=== PATIENT | female | born 1930 | race Caucasian/White ===

== ENCOUNTER 2016-10-10 13:56 | Inpatient (IN) | payer MEDICARE ==
[2016-10-10] MEDS ORDERED: SODIUM CHLORIDE 0.9% 1,000 ML IV STA (14:28)
--- NOTE | 2016-10-10 14:31 | ED ---
General Adult HPI - General Chief complaint: Fall Stated complaint: Fall Time Seen by Provider: 10/10/16 14:24 Source: patient, EMS, RN notes reviewed Mode of arrival: EMS Limitations: no limitations - History of Present Illness Initial comments: Patient is a pleasant 86-year-old female presenting to the emergency department for weakness. Patient fell off the toilet. Patient was unable to get up on her own. Patient states she feels fine now has no complaints. Patient denies any syncope. No head injury or loss of consciousness. No injury at all. No cough or dyspnea. No fevers. No abdominal pain. - Related Data Home Medications Medication Instructions Recorded Confirmed Hydrochlorothiazide [Hydrodiuril] 25 mg PO DAILY 10/10/16 10/10/16 Levothyroxine Sodium [Synthroid] 25 mcg PO DAILY 10/10/16 10/10/16 Metoprolol Tartrate [Lopressor] 50 mg PO BID 10/10/16 10/10/16 Primidone [Mysoline] 100 mg PO DAILY PRN 10/10/16 10/10/16 risperiDONE [RisperDAL] 0.5 mg PO HS 10/10/16 10/10/16 Allergies Allergy/AdvReac Type Severity Reaction Status Date / Time No Known Allergies Allergy Verified 10/10/16 15:19 Review of Systems ROS Statement: Those systems with pertinent positive or pertinent negative responses have been documented in the HPI. ROS Other: All systems not noted in ROS Statement are negative. Constitutional: Denies: fever Eyes: Denies: eye pain ENT: Denies: ear pain Respiratory: Denies: cough Cardiovascular: Denies: chest pain Endocrine: Denies: fatigue Gastrointestinal: Denies: abdominal pain Genitourinary: Denies: dysuria Musculoskeletal: Denies: back pain Skin: Denies: rash Neurological: Reports: weakness Past Medical History Past Medical History: Unable to Obtain History of Any Multi-Drug Resistant Organisms: None Reported Past Surgical History: Unable to Obtain Past Psychological History: No Psychological Hx Reported Smoking Status: Current every day smoker Past Alcohol Use History: None Reported Past Drug Use History: None Reported General Exam Limitations: no limitations General appearance: alert, in no apparent distress Head exam: Present: atraumatic, normocephalic Eye exam: Present: normal appearance, PERRL, EOMI. Absent: nystagmus ENT exam: Present: normal oropharynx Neck exam: Present: normal inspection Respiratory exam: Present: normal lung sounds bilaterally Cardiovascular Exam: Present: regular rate, normal rhythm GI/Abdominal exam: Present: soft. Absent: tenderness Extremities exam: Present: normal inspection, full ROM. Absent: tenderness Neurological exam: Present: alert, CN II-XII intact. Absent: motor sensory deficit Expanded Cranial nerves: EOM's Intact: Normal, Facial Sensation: Normal Sensory exam: Upper Extremity Light Touch: Normal, Lower Extremity Light Touch: Normal Motor strength exam: RUE: 5, LUE: 5, RLE: 5, LLE: 5 Eye Response: (4) open spontaneously Motor Response: (6) obeys commands Verbal Response: (5) oriented Psychiatric exam: Present: normal affect, normal mood Skin exam: Absent: rash Course Vital Signs 10/10/16 10/10/16 14:04 16:21 Temperature 98.2 F Pulse Rate 89 84 Respiratory 18 18 Rate Blood Pressure 133/60 125/63 O2 Sat by Pulse 99 98 Oximetry EKG Findings - EKG Comments: EKG Findings:: Sinus rhythm at 82 with PVCs present. W[place] 146. QRS 140. QTc 410. QTc 479. Left axis. Right bundle branch block. Left anterior fascicular block. Minimal voltage for LVH. No acute ST change. Medical Decision Making - Medical Decision Making Patient reevaluated and resting comfortably in bed. Patient and family updated on results and plan. Case was discussed in detail with Dr. Garvey, who will admit for Dr. evans. IV fluids and potassium replacement will be provided. - Lab Data Result diagrams: 10/10/16 14:45 10/10/16 14:45 Lab Results 10/10/16 10/10/16 10/10/16 Range/Units 14:45 14:45 14:45 WBC 4.7 (3.8-10.6) k/uL RBC 4.40 (3.80-5.40) m/uL Hgb 12.6 (11.4-16.0) gm/dL Hct 36.5 (34.0-46.0) % MCV 83.0 (80.0-100.0) fL MCH 28.7 (25.0-35.0) pg MCHC 34.6 (31.0-37.0) g/dL RDW 14.1 (11.5-15.5) % Plt Count 259 (150-450) k/uL Neutrophils % 79 % Lymphocytes % 14 % Monocytes % 5 % Eosinophils % 0 % Basophils % 0 % Neutrophils # 3.7 (1.3-7.7) k/uL Lymphocytes # 0.6 L (1.0-4.8) k/uL Monocytes # 0.2 (0-1.0) k/uL Eosinophils # 0.0 (0-0.7) k/uL Basophils # 0.0 (0-0.2) k/uL PT (9.0-12.0) sec INR (<1.1) APTT (22.0-30.0) sec Sodium (137-145) mmol/L Potassium (3.5-5.1) mmol/L Chloride (98-107) mmol/L Carbon Dioxide (22-30) mmol/L Anion Gap mmol/L BUN (7-17) mg/dL Creatinine (0.52-1.04) mg/dL Est GFR (MDRD) Af Amer (>60 ml/min/1.73 sqM) Est GFR (MDRD) Non-Af (>60 ml/min/1.73 sqM) Glucose (74-99) mg/dL Calcium (8.4-10.2) mg/dL Phosphorus (2.5-4.5) mg/dL Magnesium (1.6-2.3) mg/dL Total Bilirubin (0.2-1.3) mg/dL AST (14-36) U/L ALT (9-52) U/L Alkaline Phosphatase (38-126) U/L Total Creatine Kinase 384 H (30-135) U/L CK-MB (CK-2) 1.5 (0.0-2.4) ng/mL CK-MB (CK-2) Rel Index 0.4 Troponin I 0.013 (0.000-0.034) ng/mL Total Protein (6.3-8.2) g/dL Albumin (3.5-5.0) g/dL TSH (0.465-4.680) mIU/L Free T4 (0.78-2.19) ng/dL Free T3 pg/mL (2.8-5.3) pg/ml Urine Color Yellow Urine Appearance Clear (Clear) Urine pH 6.5 (5.0-8.0) Ur Specific [employer] 1.011 (1.001-1.035) Urine Protein Trace H (Negative) Urine Glucose (UA) Negative (Negative) Urine Ketones Negative (Negative) Urine Blood Trace H (Negative) Urine Nitrite Negative (Negative) Urine Bilirubin Negative (Negative) Urine Urobilinogen <2.0 (<2.0) mg/dL Ur Leukocyte Esterase Negative (Negative) Urine RBC 6 H (0-5) /hpf Urine WBC 1 (0-5) /hpf Ur Squamous Epith Cells <1 (0-4) /hpf Hyaline Casts 5 H (0-2) /lpf Urine Mucus Rare H (None) /hpf 10/10/16 10/10/16 Range/Units 14:45 14:45 WBC (3.8-10.6) k/uL RBC (3.80-5.40) m/uL Hgb (11.4-16.0) gm/dL Hct (34.0-46.0) % MCV (80.0-100.0) fL MCH (25.0-35.0) pg MCHC (31.0-37.0) g/dL RDW (11.5-15.5) % Plt Count (150-450) k/uL Neutrophils % % Lymphocytes % % Monocytes % % Eosinophils % % Basophils % % Neutrophils # (1.3-7.7) k/uL Lymphocytes # (1.0-4.8) k/uL Monocytes # (0-1.0) k/uL Eosinophils # (0-0.7) k/uL Basophils # (0-0.2) k/uL PT 10.7 (9.0-12.0) sec INR 1.1 (<1.1) APTT 22.5 (22.0-30.0) sec Sodium 128 L (137-145) mmol/L Potassium 2.9 L* (3.5-5.1) mmol/L Chloride 88 L (98-107) mmol/L Carbon Dioxide 29 (22-30) mmol/L Anion Gap 11 mmol/L BUN 13 (7-17) mg/dL Creatinine 0.80 (0.52-1.04) mg/dL Est GFR (MDRD) Af Amer >60 (>60 ml/min/1.73 sqM) Est GFR (MDRD) Non-Af >60 (>60 ml/min/1.73 sqM) Glucose 94 (74-99) mg/dL Calcium 8.8 (8.4-10.2) mg/dL Phosphorus 3.1 (2.5-4.5) mg/dL Magnesium 1.7 (1.6-2.3) mg/dL Total Bilirubin 0.5 (0.2-1.3) mg/dL AST 35 (14-36) U/L ALT 23 (9-52) U/L Alkaline Phosphatase 53 (38-126) U/L Total Creatine Kinase (30-135) U/L CK-MB (CK-2) (0.0-2.4) ng/mL CK-MB (CK-2) Rel Index Troponin I (0.000-0.034) ng/mL Total Protein 6.6 (6.3-8.2) g/dL Albumin 3.6 (3.5-5.0) g/dL TSH 1.480 (0.465-4.680) mIU/L Free T4 1.26 (0.78-2.19) ng/dL Free T3 pg/mL 2.4 L (2.8-5.3) pg/ml Urine Color Urine Appearance (Clear) Urine pH (5.0-8.0) Ur Specific [employer] [place] (1.001-1.035) Urine Protein (Negative) Urine Glucose (UA) (Negative) Urine Ketones (Negative) Urine Blood (Negative) Urine Nitrite (Negative) Urine Bilirubin (Negative) Urine Urobilinogen (<2.0) mg/dL Ur Leukocyte Esterase (Negative) Urine RBC (0-5) /hpf Urine WBC (0-5) /hpf Ur Squamous Epith Cells (0-4) /hpf Hyaline Casts (0-2) /lpf Urine Mucus (None) /hpf - Radiology Data Radiology results: report reviewed (Computed tomography scan of the brain shows no acute process. Atrophy is present.), image reviewed (Chest x-ray shows no acute process.) Disposition Clinical Impression: Fall, Hyponatremia, Hypokalemia, Weakness Disposition: ADMITTED IP TO THIS HOSP
[2016-10-10 15:11] LABS: Appearance,Urine Clear (Clear); Bilirubin,Urine Negative (Negative); Glucose,Urine (UA) Negative (Negative); Ketones,Urine Negative (Negative); Leukocyte Esterase,Urine Negative (Negative); Mucus,Urine Rare /hpf; Nitrite,Urine Negative (Negative); PH, Urine 6.5 (5.0-8.0); Particle Count 2201; Protein,Urine Trace (Negative); RBC,Urine 6 /hpf (0-5); Specific Gravity,Urine 1.011 (1.001-1.035); Squamous Epithelial Cell,Urine <1 /hpf (0-4); UA Billing (MACRO vs. MICRO) MICRO; Urobilinogen,Urine <2.0 mg/dL (<2.0); WBC,Urine 1 /hpf (0-5)
[2016-10-10 15:15] LABS: INR 1.1 (<1.1); Partial Thromboplastin Time 22.5 sec (22.0-30.0); Prothrombin Time 10.7 sec (9.0-12.0)
[2016-10-10 15:17] LABS: ALT 23 U/L (9-52); AST 35 U/L (14-36); Alkaline Phosphatase 53 U/L (38-126); Anion Gap 11 mmol/L; Blood Urea Nitrogen 13 mg/dL (7-17); Calcium 8.8 mg/dL (8.4-10.2); Carbon Dioxide 29 mmol/L (22-30); Chloride 88 mmol/L (98-107); Glucose 94 mg/dL (74-99); Magnesium 1.7 mg/dL (1.6-2.3); Non-African American GFR(MDRD) >60 (>60 ml/min/1.73 sqM); Phosphorous 3.1 mg/dL (2.5-4.5); Sodium 128 mmol/L (137-145); Total Bilirubin 0.5 mg/dL (0.2-1.3); Total Protein 6.6 g/dL (6.3-8.2)
[2016-10-10 15:23] LABS: Potassium 2.9 mmol/L (3.5-5.1)
[2016-10-10 15:35] LABS: Basophils % (A) 0 %; CH 28.6; CHCM 34.6; Eosinophils % (A) 0 %; HCT 36.5 % (34.0-46.0); HDW 2.61; HGB 12.6 gm/dL (11.4-16.0); Luc # (Auto) 0.09; Luc % (Auto) 2; Lymphocytes # (A) 0.6 k/uL (1.0-4.8); Lymphocytes % (A) 14 %; MCH 28.7 pg (25.0-35.0); MCHC 34.6 g/dL (31.0-37.0); Monocytes # (A) 0.2 k/uL (0-1.0); Monocytes % (A) 5 %; Neutrophils # (A) 3.7 k/uL (1.3-7.7); Neutrophils % (A) 79 %; RDW 14.1 % (11.5-15.5); WBC 4.7 k/uL (3.8-10.6); WBC (Perox) 4.58
[2016-10-10 15:39] LABS: Creatine Kinase MB 1.5 ng/mL (0.0-2.4); Troponin I 0.013 ng/mL (0.000-0.034)
--- NOTE | 2016-10-10 15:43 | XR ---
EXAMINATION TYPE: XR chest 2V DATE OF EXAM: 10/10/2016 3:37 PM COMPARISON: 10/10/2016 HISTORY: Shortness of breath TECHNIQUE: Frontal and lateral views of the chest are obtained. FINDINGS: Scattered senescent parenchymal changes noted. Hyperinflation compatible with COPD. No evidence for infiltrate. No evidence for atelectasis. Fluid or thickening within the right minor f issure. Heart size is stable. Mediastinal structures are stable and grossly unremarkable. No evidence for hilar prominence. Degenerative changes dorsal spine. IMPRESSION: 1. No evidence for acute pulmonary disease.
--- NOTE | 2016-10-10 15:49 | CT ---
EXAMINATION TYPE: CT brain wo con DATE OF EXAM: 10/10/2016 3:37 PM COMPARISON: NONE INDICATION: ams, unable to obtain hx DLP: 943.8 mGycm, Automated exposure control for dose reduction was used. CONTRAST: None CT of the brain is performed utilizing 3 mm thick sections through the posterior fossa and 3 mm thick sections through the remaining calvarium. Study is performed within 24 hours of arrival to the hosp [facility]. No abnormal hyperdensity is present to suggest an acute intracranial hemorrhage. No mass lesion is evident. No acute infarcts are evident. Periventricular white matter hypodensity is present, likely on the bas is of chronic white matter ischemic changes. Ventricles and sulci are mildly prominent for the patient age. Paranasal sinuses and mastoid air cells within the [id number] are clear. IMPRESSIONS: 1. Atrophy with periventricular white matter ischemic changes.
[2016-10-10] MEDS ORDERED: POTASSIUM BICARB-CITRIC ACID 25 MEQ TABLET.EFF PO STA (16:37)
[2016-10-10] MEDS ORDERED: NALOXONE 0.4 MG/ML 1 ML VIAL IV PRN (16:47)
[2016-10-10] MEDS ORDERED: ACETAMINOPHEN TAB 325 MG TAB PO PRN (16:47)
[2016-10-10] MEDS: POTASSIUM CHLORIDE 10 MEQ, LIDOCAINE 2% INJ 10 MG in SODIUM CHLORIDE 0.9% 100 ML IVPB SCH ×2 (16:58→19:47)
[2016-10-10] MEDS: POTASSIUM CHLORIDE ER 20 MEQ TAB.ER PO SCH (20:11)
[2016-10-10] MEDS: 0.9% NACL WITH KCL 20 MEQ/L 1,000 ML IV SCH (21:04)
[2016-10-11] MEDS: 0.9% NACL WITH KCL 20 MEQ/L 1,000 ML IV SCH ×2 (08:43→21:28)
[2016-10-11] MEDS: POTASSIUM CHLORIDE ER 20 MEQ TAB.ER PO SCH ×2 (08:43→20:56)
[2016-10-11 09:15] LABS: Anion Gap 7 mmol/L; Blood Urea Nitrogen 10 mg/dL (7-17); Carbon Dioxide 27 mmol/L (22-30); Chloride 97 mmol/L (98-107); Glucose 104 mg/dL (74-99); Non-African American GFR(MDRD) >60 (>60 ml/min/1.73 sqM); Potassium 3.6 mmol/L (3.5-5.1); Sodium 131 mmol/L (137-145)
[2016-10-11] MEDS ORDERED: PRIMIDONE 50 MG TAB PO PRN (11:10)
[2016-10-11] MEDS ORDERED: ONDANSETRON 4 MG/2 ML VIAL IVP PRN (11:12)
[2016-10-11] MEDS ORDERED: Potassium Replacement Protocol 1 EACH MISC MISCELLANE PRN (11:13)
[2016-10-11] MEDS ORDERED: Magnesium Replacement Protocol 1 EACH MISC MISCELLANE PRN (11:13)
--- NOTE | 2016-10-11 11:20 | P.HPIM ---
History of Present Illness H&P Date: 10/11/16 Chief Complaint: Fall This is a 86-year-old female with past medical history noted below significant for underlying dementia who presented to the emergency room after she had a fall at home. Patient is demented and is unable to provide any significant medical history. Most of the medical history was obtained by her daughter at the bedside. Apparently patient is fairly independent and is usually able to walk around and take care of her activities of daily living. She lives with her son at home. Her daughter told me that her son left the house and came back after 30 minutes and found his mother in the bathroom with the door closed. He did not want to bother her initially back after 10 minutes after she did not go out he started knocking on the door and then opened the door to find his mother on the ground. She was alert and awake. Apparently she slipped off the toilet and landed on her buttock. Patient herself denies any head trauma. She does not have any specific pain reported in her lower back or hip. His evaluated in the emergency room and computed tomography scan of the brain showed no acute intracranial findings. Patient was felt to be dehydrated with evidence of hyponatremia and hypokalemia. She was admitted to the hospital for further evaluation. She is alert and awake today. She is oriented 2. She does not have any specific concerns. Review of Systems Review of system: 14 points review of systems were obtained and were negative except to what were mentioned in the HPI. 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 pt is usually independant. no outside services, no medical equipment. Smoking Status: Current every day smoker Past Alcohol Use History: None Reported Additional Past Alcohol Use History / Comment(s): pt could'nt remember how old she was when she started smoking.currently smokes 13 cig per day. Past Drug Use History: None Reported - Past Family History Mother Family Medical History: No Reported History Additional Family Medical History / Comment(s): of old age Father Family Medical History: Cancer Additional Family Medical History / Comment(s): smoker- from throat cancer Medications and Allergies Home Medications Medication Instructions Recorded Confirmed Type Hydrochlorothiazide [Hydrodiuril] 25 mg PO DAILY 10/10/16 10/10/16 History Levothyroxine Sodium [Synthroid] 25 mcg PO DAILY 10/10/16 10/10/16 History Metoprolol Tartrate [Lopressor] 50 mg PO BID 10/10/16 10/10/16 History Primidone [Mysoline] 100 mg PO DAILY PRN 10/10/16 10/10/16 History risperiDONE [RisperDAL] 0.5 mg PO HS 10/10/16 10/10/16 History Allergies Allergy/AdvReac Type Severity Reaction Status Date / Time No Known Allergies Allergy Verified 10/10/16 15:19 Physical Exam Vitals: Vital Signs Temp Pulse Pulse Resp BP BP Pulse Ox 10/11/16 07:00 97.9 F 84 16 135/62 94 L 10/10/16 23:45 99.4 F 10/10/16 22:32 101.4 F H 85 18 131/73 97 10/10/16 17:58 97.0 F L 68 18 155/67 98 10/10/16 16:51 80 18 115/58 98 Intake and Output 10/10/16 10/11/16 10/11/16 22:59 06:59 14:59 Other: Voiding Method Bedside Commode Bedside Commode Diaper Diaper Incontinent Incontinent # Voids 2 General: The patient is awake and alert, in no distress Eye: there is normal conjunctiva bilaterally. Neck: The neck is supple, there is no JVD. Cardiovascular: Normal S1-S2, no S3-S4, no murmurs. Respiratory: Lungs clear to auscultation bilaterally Gastrointestinal: Abdomen is soft, nontender Musculoskeletal: There is no pedal edema. Neurological:. Speech is normal. Skin: Skin is warm and dry Results CBC & Chem 7: 10/10/16 14:45 10/11/16 08:36 Labs: Abnormal Lab Results - Last 24 Hours (Table) 10/11/16 Range/Units 08:36 Sodium 131 L (137-145) mmol/L Chloride 97 L (98-107) mmol/L Glucose 104 H (74-99) mg/dL Calcium 8.0 L (8.4-10.2) mg/dL Thrombosis Risk Factor Assmnt - Choose All That Apply Any of the Below Risk Factors Present?: No Other Risk Factors: No Each Risk Factor Represents 3 Points: Age 75 years or older Other congenital or acquired thrombophilia - If yes, enter type in comment: No Thrombosis Risk Factor Assessment Total Risk Factor Score: 3 Thrombosis Risk Factor Assessment Level: Very Low Risk Assessment and Plan Plan: 1. Fall: Exact etiology unclear. Possibly mechanical. There is evidence of dehydration on presentation. I would check orthostatic blood pressure today. Continue IV fluid hydration. Computed tomography scan of the brain showed no acute findings. 2. Hypovolemic hyponatremia: Improving with IV fluid hydration. Continue 0.9 normal saline at 75 mL per hour 3. Hypokalemia: May be attributed to diuretics use. I would discontinue hydrochlorothiazide. Replace by protocol. 4. Excessive caffeine use: Counseled extensively. Her daughter reported the patient drinks up to 4 pots of coffee per day. 5. Essential tremor 6. DVT and GI prophylaxis 7. Physical debility, consult physical and occupational therapy Today, I reviewed her medication list and lab work results. Discontinue hydrochlorothiazide. Resume home medication otherwise. Check orthostatic blood pressure. Replace electrolytes per protocol. Repeat lab work in the morning.
[2016-10-11] MEDS: METOPROLOL TARTRATE 50 MG TAB PO SCH ×2 (14:08→20:58)
[2016-10-11] MEDS: LEVOTHYROXINE 25 MCG TAB PO SCH (14:08)
[2016-10-11 14:51] VITALS: BMI 22.4
[2016-10-11] MEDS: HEPARIN SODIUM,PORCINE 5,000 UNIT/ML 1 ML VIAL SQ SCH (20:58)
[2016-10-11] MEDS ORDERED: risperiDONE 0.5 MG TAB PO SCH (21:00)
[2016-10-12] MEDS: LEVOTHYROXINE 25 MCG TAB PO SCH (05:24)
[2016-10-12 07:25] VITALS: RESP 16
[2016-10-12 08:33] LABS: Basophils % (A) 0 %; CHCM 32.8; Eosinophils % (A) 0 %; HCT 32.6 % (34.0-46.0); HDW 2.54; HGB 10.7 gm/dL (11.4-16.0); Luc # (Auto) 0.06; Luc % (Auto) 1; Lymphocytes # (A) 1.1 k/uL (1.0-4.8); Lymphocytes % (A) 24 %; MCH 28.3 pg (25.0-35.0); MCHC 32.9 g/dL (31.0-37.0); MCV 86.1 fL (80.0-100.0); Mean Platelet Volume 6.5; Monocytes # (A) 0.2 k/uL (0-1.0); Monocytes % (A) 4 %; Neutrophils # (A) 3.1 k/uL (1.3-7.7); Neutrophils % (A) 71 %; RBC 3.79 m/uL (3.80-5.40); RDW 14.7 % (11.5-15.5); WBC 4.3 k/uL (3.8-10.6)
[2016-10-12 08:37] LABS: Anion Gap 7 mmol/L; Blood Urea Nitrogen 8 mg/dL (7-17); Calcium 7.6 mg/dL (8.4-10.2); Carbon Dioxide 22 mmol/L (22-30); Chloride 102 mmol/L (98-107); Glucose 89 mg/dL (74-99); Magnesium 1.7 mg/dL (1.6-2.3); Non-African American GFR(MDRD) >60 (>60 ml/min/1.73 sqM); Potassium 3.7 mmol/L (3.5-5.1); Sodium 131 mmol/L (137-145)
[2016-10-12] MEDS: HEPARIN SODIUM,PORCINE 5,000 UNIT/ML 1 ML VIAL SQ SCH (09:26)
[2016-10-12] MEDS: METOPROLOL TARTRATE 50 MG TAB PO SCH (09:26)
[2016-10-12] MEDS: POTASSIUM CHLORIDE ER 20 MEQ TAB.ER PO SCH (09:27)
[2016-10-12] MEDS: 0.9% NACL WITH KCL 20 MEQ/L 1,000 ML IV SCH (09:27)
[2016-10-12 15:07] VITALS: BP 108/55; PULSE 63; TEMP 98.8
--- NOTE | 2016-10-12 15:38 | P.DS ---
Providers Date of admission: 10/10/16 16:47 Expected date of discharge: 10/12/16 Attending physician: Cindy Salomon Primary care physician: Marie Solares Hospital Course: 1. Fall: Exact etiology unclear. Possibly mechanical. There is evidence of dehydration on presentation. Orthostatic blood pressure checked today and negative. Patient received IV fluid hydration. Computed tomography scan of the brain showed no acute findings. 2. Hypovolemic hyponatremia: Improved with IV fluid hydration. 3. Hypokalemia: May be attributed to diuretics use. I would discontinue hydrochlorothiazide. Replaced by protocol. 4. Excessive caffeine use: Counseled extensively. Her daughter reported the patient drinks up to 4 pots of coffee per day. 5. Essential tremor 6. Physical debility, consult physical and occupational therapy. Family refused ECF for rehab Plan - Discharge Summary Discharge Medication List Levothyroxine Sodium [Synthroid] 25 mcg PO DAILY 10/10/16 [History] Metoprolol Tartrate [Lopressor] 50 mg PO BID 10/10/16 [History] Primidone [Mysoline] 100 mg PO DAILY PRN 10/10/16 [History] risperiDONE [RisperDAL] 0.5 mg PO HS 10/10/16 [History] Follow up Appointment(s)/Referral(s): Marie Solares MD [Primary Care Provider] - 1-2 days Patient Instructions/Handouts: Dehydration (DC) Discharge Disposition: HOME SELF-CARE
== END 2016-10-12 16:05 | disposition home or self-care (01) | DRG 641 ==
LOC: EC 13:56 → 4MS4W 16:47
PROVIDERS: ADMIT Internal Medicine; ATTEND Internal Medicine
DX: E86.0 Dehydration (principal); F03.90 Unspecified dementia, unspecified severity, without behavioral disturbance, psychotic disturbance, mood disturbance, and anxiety; M06.9 Rheumatoid arthritis, unspecified; E87.1 Hypo-osmolality and hyponatremia; E87.6 Hypokalemia; G25.0 Essential tremor; I10 Essential (primary) hypertension; E07.9 Disorder of thyroid, unspecified; F17.210 Nicotine dependence, cigarettes, uncomplicated; Z98.42 Cataract extraction status, left eye; Z98.41 Cataract extraction status, right eye; Z86.010 Personal history of colon polyps; W18.11XA Fall from or off toilet without subsequent striking against object, initial encounter; Y93.E8 Activity, other personal hygiene; Y92.002 Bathroom of unspecified non-institutional (private) residence as the place of occurrence of the external cause; Z79.899 Other long term (current) drug therapy
CPT/HCPCS: 36415; 70450; 71020; 80048; 80053; 81001; 82550; 82553; 83735; 84100; 84439; 84443; 84481; 84484; 85025; 85610; 85730; 87040; 87324; 93005; 96361; 96365; 99285

== ENCOUNTER 2018-03-20 10:11 | Inpatient (IN) | payer MEDICARE ==
[2018-03-20] MEDS ORDERED: SODIUM CHLORIDE 0.9% 500 ML IV ONE ×2 (10:17→12:22)
--- NOTE | 2018-03-20 10:40 | ED ---
General Adult HPI - General Stated complaint: Altered Mental Status Time Seen by Provider: 03/20/18 10:13 Source: patient, EMS, RN notes reviewed, old records reviewed - History of Present Illness Initial comments: 87-year-old female presents with altered level of consciousness. History is obtained from EMS. Family not available at the time of initial evaluation. EMS reports that over the past several days patient has had a decline in her mental status. She was found to be tachycardic and hypotensive by EMS, no reported history of fever. Patient has no pain complaints. She is alert and oriented 2. No focal weakness reported by EMS or family prior to arrival. Further history will be obtained when patient's family is available. - Related Data Home Medications Medication Instructions Recorded Confirmed Levothyroxine Sodium [Synthroid] 25 mcg PO DAILY 10/10/16 03/20/18 Primidone [Mysoline] 25 mg PO DAILY PRN 10/10/16 03/20/18 risperiDONE [RisperDAL] 0.5 mg PO HS 10/10/16 03/20/18 Hydrochlorothiazide [Hydrodiuril] 12.5 mg PO DAILY 03/20/18 03/20/18 Niacin [Niacin ER] 1,000 mg PO DAILY 03/20/18 03/20/18 Pedi Multivit No.19/Folic Acid 200 mcg PO DAILY 03/20/18 03/20/18 [Children's Multi-Vit Gummies] Allergies Allergy/AdvReac Type Severity Reaction Status Date / Time No Known Allergies Allergy Verified 03/20/18 11:32 Review of Systems ROS Statement: Those systems with pertinent positive or pertinent negative responses have been documented in the HPI. ROS Other: All systems not noted in ROS Statement are negative. 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 pt is usually independant. no outside services, no medical equipment. Smoking Status: Current every day smoker Past Alcohol Use History: None Reported Additional Past Alcohol Use History / Comment(s): pt could'nt remember how old she was when she started smoking.currently smokes 13 cig per day. Past Drug Use History: None Reported - Past Family History Mother Family Medical History: No Reported History Additional Family Medical History / Comment(s): of old age Father Family Medical History: Cancer Additional Family Medical History / Comment(s): smoker- from throat cancer General Exam General appearance: alert, in no apparent distress Head exam: Present: atraumatic, normocephalic Eye exam: Present: normal appearance, PERRL, EOMI ENT exam: Present: mucous membranes dry Neck exam: Present: normal inspection. Absent: tenderness, meningismus Respiratory exam: Present: normal lung sounds bilaterally. Absent: respiratory distress, wheezes Cardiovascular Exam: Present: tachycardia, irregular rhythm GI/Abdominal exam: Present: soft, tenderness (Mild generalized tenderness to palpation). Absent: distended, guarding, rebound Extremities exam: Present: normal inspection, normal capillary refill. Absent: pedal edema Neurological exam: Present: alert. Absent: oriented X3, motor sensory deficit Skin exam: Present: warm, dry, intact. Absent: cyanosis Course Vital Signs 03/20/18 03/20/18 03/20/18 10:17 11:03 12:28 Temperature 98.7 F Pulse Rate 112 H 119 H Pulse Rate [ 99 [employer] Building [employer] ] Respiratory 16 18 Rate Blood Pressure 146/67 134/95 O2 Sat by Pulse 92 L 91 L Oximetry EKG Findings - EKG Comments: EKG Findings:: EKG: Sinus tachycardia with PVC, right bundle branch block, left anterior fascicular block, rate of 104, RI interval 176, QRS duration 1:30, QTC 372, QTC 49, no significant change compared to prior. Medical Decision Making - Medical Decision Making 87-year-old female presented with altered mental status. Patient has significant laboratory abnormalities including leukocytosis likely secondary to combination of UTI and possible basilar pneumonia. Hemoglobin is 9.8 which is somewhat down trending from previous at 10.7, potassium is 2.7 which is replaced with both oral and IV potassium. Patient has a new elevated creatinine at 1.97 from a baseline of 0.62, urinalysis shows many bacteria and 16 white cells. Albumin is low at 2.1, troponin is elevated although patient has some renal failure, this level will be trended. CT is negative for any acute intracranial pathology, chest x-ray shows some venous congestion in basilar infiltrate. Patient is covered for both urinary tract infection and pneumonia. She will be admitted for further evaluation and treatment. - Lab Data Result diagrams: 03/20/18 10:52 03/20/18 10:52 Lab Results 03/20/18 03/20/18 03/20/18 Range/Units 10:37 10:52 10:52 WBC 19.0 H (3.8-10.6) k/uL RBC 3.96 (3.80-5.40) m/uL Hgb 9.8 L (11.4-16.0) gm/dL Hct 30.5 L (34.0-46.0) % MCV 77.0 L (80.0-100.0) fL MCH 24.8 L (25.0-35.0) pg MCHC 32.2 (31.0-37.0) g/dL RDW 14.8 (11.5-15.5) % Plt Count 528 H (150-450) k/uL Neutrophils % 96 % Lymphocytes % 2 % Monocytes % 1 % Eosinophils % 0 % Basophils % 0 % Neutrophils # 18.3 H (1.3-7.7) k/uL Lymphocytes # 0.3 L (1.0-4.8) k/uL Monocytes # 0.3 (0-1.0) k/uL Eosinophils # 0.0 (0-0.7) k/uL Basophils # 0.0 (0-0.2) k/uL Hypochromasia Slight PT (9.0-12.0) sec INR (<1.2) APTT (22.0-30.0) sec Sodium (137-145) mmol/L Potassium (3.5-5.1) mmol/L Chloride (98-107) mmol/L Carbon Dioxide (22-30) mmol/L Anion Gap mmol/L BUN (7-17) mg/dL Creatinine (0.52-1.04) mg/dL Est GFR (CKD-EPI)AfAm (>60 ml/min/1.73 sqM) Est GFR (CKD-EPI)NonAf (>60 ml/min/1.73 sqM) Glucose (74-99) mg/dL Plasma Lactic Acid Miguel A (0.7-2.0) mmol/L Calcium (8.4-10.2) mg/dL Total Bilirubin (0.2-1.3) mg/dL AST (14-36) U/L ALT (9-52) U/L Alkaline Phosphatase (38-126) U/L Total Creatine Kinase 99 (30-135) U/L CK-MB (CK-2) 0.7 (0.0-2.4) ng/mL CK-MB (CK-2) Rel Index 0.7 Troponin I 0.055 H* (0.000-0.034) ng/mL Total Protein (6.3-8.2) g/dL Albumin (3.5-5.0) g/dL Urine Color Yellow Urine Appearance Cloudy H (Clear) Urine pH 5.5 (5.0-8.0) Ur Specific Leroy 1.016 (1.001-1.035) Urine Protein 1+ H (Negative) Urine Glucose (UA) Negative (Negative) Urine Ketones Negative (Negative) Urine Blood Trace H (Negative) Urine Nitrite Negative (Negative) Urine Bilirubin Negative (Negative) Urine Urobilinogen 2.0 (<2.0) mg/dL Ur Leukocyte Esterase Small H (Negative) Urine RBC 8 H (0-5) /hpf Urine WBC 16 H (0-5) /hpf Ur Squamous Epith Cells 6 H (0-4) /hpf Amorphous Sediment Rare H (None) /hpf Urine Bacteria Many H (None) /hpf Urine Mucus Rare H (None) /hpf 03/20/18 03/20/18 03/20/18 Range/Units 10:52 10:52 10:52 WBC (3.8-10.6) k/uL RBC (3.80-5.40) m/uL Hgb (11.4-16.0) gm/dL Hct (34.0-46.0) % MCV (80.0-100.0) fL MCH (25.0-35.0) pg MCHC (31.0-37.0) g/dL RDW (11.5-15.5) % Plt Count (150-450) k/uL Neutrophils % % Lymphocytes % % Monocytes % % Eosinophils % % Basophils % % Neutrophils # (1.3-7.7) k/uL Lymphocytes # (1.0-4.8) k/uL Monocytes # (0-1.0) k/uL Eosinophils # (0-0.7) k/uL Basophils # (0-0.2) k/uL Hypochromasia PT 10.9 (9.0-12.0) sec INR 1.1 (<1.2) APTT 20.6 L (22.0-30.0) sec Sodium 146 H (137-145) mmol/L Potassium 2.7 L* (3.5-5.1) mmol/L Chloride 110 H (98-107) mmol/L Carbon Dioxide 25 (22-30) mmol/L Anion Gap 11 mmol/L BUN 74 H (7-17) mg/dL Creatinine 1.97 H (0.52-1.04) mg/dL Est GFR (CKD-EPI)AfAm 25 (>60 ml/min/1.73 sqM) Est GFR (CKD-EPI)NonAf 22 (>60 ml/min/1.73 sqM) Glucose 135 H (74-99) mg/dL Plasma Lactic Acid Miguel A 2.0 (0.7-2.0) mmol/L Calcium 8.1 L (8.4-10.2) mg/dL Total Bilirubin 0.6 (0.2-1.3) mg/dL AST 36 (14-36) U/L ALT 22 (9-52) U/L Alkaline Phosphatase 85 (38-126) U/L Total Creatine Kinase (30-135) U/L CK-MB (CK-2) (0.0-2.4) ng/mL CK-MB (CK-2) Rel Index Troponin I (0.000-0.034) ng/mL Total Protein 4.8 L (6.3-8.2) g/dL Albumin 2.1 L (3.5-5.0) g/dL Urine Color Urine Appearance (Clear) Urine pH (5.0-8.0) Ur Specific Leroy (1.001-1.035) Urine Protein (Negative) Urine Glucose (UA) (Negative) Urine Ketones (Negative) Urine Blood (Negative) Urine Nitrite (Negative) Urine Bilirubin (Negative) Urine Urobilinogen (<2.0) mg/dL Ur Leukocyte Esterase (Negative) Urine RBC (0-5) /hpf Urine WBC (0-5) /hpf Ur Squamous Epith Cells (0-4) /hpf Amorphous Sediment (None) /hpf Urine Bacteria (None) /hpf Urine Mucus (None) /hpf Critical Care Time Critical Care Time: Yes Total Critical Care Time: 35 Disposition Clinical Impression: Dehydration, Hypokalemia, UTI (urinary tract infection), Sepsis Disposition: ADMITTED IP TO THIS HOSP Condition: Stable Is patient prescribed a controlled substance at d/c from ED?: No Referrals: Marie Solares MD [Primary Care Provider] - 1-2 days Decision to Admit Reason: Admit from EC Decision Date: 03/20/18 Decision Time: 13:25
[2018-03-20 11:15] LABS: Basophils % (A) 0 %; Eosinophils % (A) 0 %; HCT 30.5 % (34.0-46.0); HGB 9.8 gm/dL (11.4-16.0); Hypochromasia Slight; Lymphocytes # (A) 0.3 k/uL (1.0-4.8); Lymphocytes % (A) 2 %; MCH 24.8 pg (25.0-35.0); MCHC 32.2 g/dL (31.0-37.0); Mean Platelet Volume 7.7; Monocytes # (A) 0.3 k/uL (0-1.0); Monocytes % (A) 1 %; Neutrophils # (A) 18.3 k/uL (1.3-7.7); Neutrophils % (A) 96 %; Platelet Count 528 k/uL (150-450); RBC 3.96 m/uL (3.80-5.40); RDW 14.8 % (11.5-15.5)
[2018-03-20 11:19] LABS: Amorphous Sediment,Urine Rare /hpf; Appearance,Urine Cloudy (Clear); Bacteria,Urine Many /hpf; Bilirubin,Urine Negative (Negative); Blood,Urine Trace (Negative); Color,Urine Yellow; Glucose,Urine (UA) Negative (Negative); Ketones,Urine Negative (Negative); Leukocyte Esterase,Urine Small (Negative); Mucus,Urine Rare /hpf; Nitrite,Urine Negative (Negative); PH, Urine 5.5 (5.0-8.0); Protein,Urine 1+ (Negative); RBC,Urine 8 /hpf (0-5); Specific Gravity,Urine 1.016 (1.001-1.035); Squamous Epithelial Cell,Urine 6 /hpf (0-4); WBC,Urine 16 /hpf (0-5)
[2018-03-20 11:27] LABS: Albumin 2.1 g/dL (3.5-5.0); Calcium 8.1 mg/dL (8.4-10.2); Total Bilirubin 0.6 mg/dL (0.2-1.3); Total Protein 4.8 g/dL (6.3-8.2)
[2018-03-20] MEDS ORDERED: cefTRIAXone 2,000 MG in SODIUM CHLORIDE 0.9% 100 ML IVPB STA (11:28)
[2018-03-20] MEDS ORDERED: SODIUM CHLORIDE 0.9% 1,000 ML IV SCH (11:30)
[2018-03-20 11:33] LABS: Potassium 2.7 mmol/L (3.5-5.1)
--- NOTE | 2018-03-20 11:52 | CT ---
EXAMINATION TYPE: CT brain wo con DATE OF EXAM: 03/20/2018 COMPARISON: 10/10/2016 HISTORY: Patient poor historian CT DLP: [address] of the brain was performed. The ventricles, basal cisterns and sulci overlying the cerebral convexities demonstrate mild enlargem ent. There is no evidence for intracranial hemorrhage or sulcal effacement. There is decreased attenuation about the periventricular white matter and deep white matter of both c erebral hemispheres, compatible with chronic small vessel ischemia. Differential diagnosis does inclu de demyelination. No mass effects are seen.No midline shift. Osseous calvarium is intact. If symptoms persist consider MRI. IMPRESSION: 1. Age related atrophic and chronic small vessel ischemic change without acute intracranial process s een at this time.
[2018-03-20 11:54] LABS: Creatine Kinase MB 0.7 ng/mL (0.0-2.4)
--- NOTE | 2018-03-20 11:56 | XR ---
EXAMINATION TYPE: XR chest 2V DATE OF EXAM: 03/20/2018 COMPARISON: 10/10/2016 HISTORY: Shortness of breath TECHNIQUE: Frontal and lateral views of the chest are obtained. FINDINGS: Scattered senescent parenchymal changes noted. Hyperinflation compatible with COPD. There is pulmonary venous congestion with interstitial prominence. Degree of inspiration is limiting however. Basilar atelectasis or infiltrate seen. Correlate clinically. Heart size is stable. Mediastinal structures are stable and grossly unremarkable. No evidence for hilar prominence. Degenerative changes dorsal spine. IMPRESSION: 1. There is pulmonary venous congestion with interstitial prominence. Degree of inspiration is limiti ng however. Basilar atelectasis or infiltrate seen. Correlate clinically.
[2018-03-20 12:13] LABS: INR 1.1 (<1.2); Prothrombin Time 10.9 sec (9.0-12.0)
[2018-03-20 12:15] LABS: Partial Thromboplastin Time 20.6 sec (22.0-30.0)
[2018-03-20] MEDS ORDERED: AZITHROMYCIN 500 MG in SODIUM CHLORIDE 0.9% 250 ML IVPB STA ×2 (12:23→13:20)
[2018-03-20] MEDS ORDERED: VANCOMYCIN IV PER PHARMACY 1 EACH MISC MISCELLANE PRN ×2 (12:24→21:36)
[2018-03-20] MEDS: POTASSIUM CHLORIDE 20 MEQ in WATER FOR INJECTION 1 100ML.BAG IVPB SCH ×2 (12:24→16:20)
[2018-03-20] MEDS ORDERED: VANCOMYCIN 1,250 MG in SODIUM CHLORIDE 0.9% 250 ML IVPB STA (12:27)
[2018-03-20 12:38] LABS: Troponin I 0.055 ng/mL (0.000-0.034)
[2018-03-20] MEDS ORDERED: ACETAMINOPHEN TAB 325 MG TAB PO PRN (13:21)
[2018-03-20] MEDS ORDERED: NALOXONE 0.4 MG/ML 1 ML VIAL IV PRN (13:21)
[2018-03-20] MEDS ORDERED: POTASSIUM CHLORIDE ER 20 MEQ TAB.ER PO STA (13:22)
[2018-03-20] MEDS ORDERED: PRIMIDONE 25 MG TAB PO PRN (13:50)
[2018-03-20] MEDS ORDERED: NICOTINE 7MG/24HR PATCH TRANSDERM SCH (14:00)
--- NOTE | 2018-03-20 14:12 | P.HPIM ---
History of Present Illness H&P Date: 03/20/18 Chief Complaint: Altered mental status changes This is a 87-year-old female, patient of Dr. Solares. She has a known past medical history of hypothyroidism, hyperlipidemia, rheumatoid arthritis and COPD. Patient is still smoking she is working on quitting she's down to 3 cigarettes a day. Patient presents to the emergency room via EMS due to altered mental status changes. Family is now at bedside. [id number] reports that her [id number] has been more confused over the last couple a days. Prior to that she was having diarrhea for the past 3 weeks. They treated this at home with yogurt. Patient had been 2 days without a stool. Patient does report cough that is productive. She was found have evidence of pneumonia and UTI. Has been started on Rocephin and azithromycin in the ER. Also evidence of acute kidney injury creatinine elevated at 1.97. Diuretics have been placed on hold she's getting IV fluids. White count elevated at 19 hemoglobin down at 9.8 platelets 528 potassium 2.7 troponin elevated 0.055 possibly related to her acute kidney injury. Chest x-ray showing pulmonary venous Congestion and basilar atelectasis or infiltrate. Computed tomography scan of the brain showed no acute changes. EKG had shown sinus tachycardia with a heart rate of 104 with PVCs right bundle branch block and left anterior fascicular block. EMS had reported patient to be tachycardic and hypotensive. Blood pressures are now stable. Again note that the hydrochlorothiazide has been placed on hold. Discontinued the azithromycin due to its interaction with the Risperdal which she takes in the evening. At this time we'll continue with Rocephin. Patient denies any chest pain or shortness of breath. Denies any nausea or vomiting. Bowel movements have improved. Denies any burning with urination or frequency or urgency. Patient does live with [id number] at home. Baseline mentation is usually alert and orientated to name and place. 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 pt is usually independant. no outside services, no medical equipment. Smoking Status: Current every day smoker Past Alcohol Use History: None Reported Additional Past Alcohol Use History / Comment(s): pt could'nt remember how old she was when she started smoking.currently smokes 13 cig per day. Past Drug Use History: None Reported - Past Family History Mother Family Medical History: No Reported History Additional Family Medical History / Comment(s): of old age Father Family Medical History: Cancer Additional Family Medical History / Comment(s): smoker- from throat cancer Medications and Allergies Home Medications Medication Instructions Recorded Confirmed Type Levothyroxine Sodium [Synthroid] 25 mcg PO DAILY 10/10/16 03/20/18 History Primidone [Mysoline] 25 mg PO DAILY PRN 10/10/16 03/20/18 History risperiDONE [RisperDAL] 0.5 mg PO HS 10/10/16 03/20/18 History Hydrochlorothiazide [Hydrodiuril] 12.5 mg PO DAILY 03/20/18 03/20/18 History Niacin [Niacin ER] 1,000 mg PO DAILY 03/20/18 03/20/18 History Pedi Multivit No.19/Folic Acid 200 mcg PO DAILY 03/20/18 03/20/18 History [Children's Multi-Vit Gummies] Allergies Allergy/AdvReac Type Severity Reaction Status Date / Time No Known Allergies Allergy Verified 03/20/18 11:32 Physical Exam Vitals: Vital Signs Temp Pulse Pulse Resp BP Pulse Ox 03/20/18 13:36 107 H 18 152/96 95 03/20/18 12:28 119 H 18 134/95 91 L 03/20/18 11:03 99 03/20/18 10:17 98.7 F 112 H 16 146/67 92 L Intake and Output 03/19/18 03/20/18 03/20/18 22:59 06:59 14:59 Other: Weight 62.324 kg Head normocephalic Neck supple Lungs few coarse breath sounds noted at the bases Heart regular rate and rhythm S1-S2, no rub or gallop Abdomen is soft nontender nondistended positive bowel sounds no hepatosplenomegaly Extremities no edema Neuro alert and orientated to [address]. Patient currently at baseline. Results CBC & Chem 7: 03/20/18 10:52 03/20/18 10:52 Labs: Abnormal Lab Results - Last 24 Hours (Table) 03/20/18 03/20/18 03/20/18 Range/Units 10:37 10:52 10:52 WBC 19.0 H (3.8-10.6) k/uL Hgb 9.8 L (11.4-16.0) gm/dL Hct 30.5 L (34.0-46.0) % MCV 77.0 L (80.0-100.0) fL MCH 24.8 L (25.0-35.0) pg Plt Count 528 H (150-450) k/uL Neutrophils # 18.3 H (1.3-7.7) k/uL Lymphocytes # 0.3 L (1.0-4.8) k/uL APTT (22.0-30.0) sec Sodium (137-145) mmol/L Potassium (3.5-5.1) mmol/L Chloride (98-107) mmol/L BUN (7-17) mg/dL Creatinine (0.52-1.04) mg/dL Glucose (74-99) mg/dL Calcium (8.4-10.2) mg/dL Troponin I 0.055 H* (0.000-0.034) ng/mL Total Protein (6.3-8.2) g/dL Albumin (3.5-5.0) g/dL Urine Appearance Cloudy H (Clear) Urine Protein 1+ H (Negative) Urine Blood Trace H (Negative) Ur Leukocyte Esterase Small H (Negative) Urine RBC 8 H (0-5) /hpf Urine WBC 16 H (0-5) /hpf Ur Squamous Epith Cells 6 H (0-4) /hpf Amorphous Sediment Rare H (None) /hpf Urine Bacteria Many H (None) /hpf Urine Mucus Rare H (None) /hpf 03/20/18 03/20/18 Range/Units 10:52 10:52 WBC (3.8-10.6) k/uL Hgb (11.4-16.0) gm/dL Hct (34.0-46.0) % MCV (80.0-100.0) fL MCH (25.0-35.0) pg Plt Count (150-450) k/uL Neutrophils # (1.3-7.7) k/uL Lymphocytes # (1.0-4.8) k/uL APTT 20.6 L (22.0-30.0) sec Sodium 146 H (137-145) mmol/L Potassium 2.7 L* (3.5-5.1) mmol/L Chloride 110 H (98-107) mmol/L BUN 74 H (7-17) mg/dL Creatinine 1.97 H (0.52-1.04) mg/dL Glucose 135 H (74-99) mg/dL Calcium 8.1 L (8.4-10.2) mg/dL Troponin I (0.000-0.034) ng/mL Total Protein 4.8 L (6.3-8.2) g/dL Albumin 2.1 L (3.5-5.0) g/dL Urine Appearance (Clear) Urine Protein (Negative) Urine Blood (Negative) Ur Leukocyte Esterase (Negative) Urine RBC (0-5) /hpf Urine WBC (0-5) /hpf Ur Squamous Epith Cells (0-4) /hpf Amorphous Sediment (None) /hpf Urine Bacteria (None) /hpf Urine Mucus (None) /hpf Assessment and Plan Assessment: 1. Altered mental status changes likely due to metabolic encephalopathy related to infectious processes from pneumonia and UTI and acute kidney injury. Computed tomography scan shows no acute changes 2. Possible pneumonia noted on chest x-ray. Patient does admit to a cough. We 'll continue Rocephin. Azithromycin discontinued due to its interaction with the Risperdal 3. UTI: Continue antibiotics. Check urine culture 4. Acute kidney injury: Likely secondary to dehydration from diuretics and diarrhea. Also a Hold hydrochlorothiazide. Continue with IV fluids. She received a bolus in the ER. Continue normal saline at 75 mL an hour. 5. Diarrhea now resolved. Her family patient having multiple loose stools daily for the last 3 weeks. Last bowel movement 2 days 6. Hypokalemia: Patient received potassium supplement 7. Anemia: Check iron studies. Check stool for occult blood. Patient reports no acute 8. Elevated troponin likely related to her acute kidney injury. Continue to monitor cardiac enzymes. Patient reports no chest pain. EKG showing sinus tachycardia with a heart rate of 104 with PVCs 9. Severe protein calorie malnutrition: Albumin 2.1. Add ensure 3 times a day with meals 10. History of rheumatoid arthritis 11. History of COPD. Stable 12. Hypothyroidism continue Synthroid. Check thyroid level 13. Sinus tachycardia likely related to dehydration. Continue IV fluids. 14. Sepsis with tachycardia and leukocytosis. Continue antibiotics and IV fluids. Lactic acid level normal. check blood culture and urine culture GI prophylaxis Pepcid and DVT prophylaxis subcu Time with Patient: Greater than 30 (Greater than 60% of the total time spent in counseling and coordination of care.I performed an examination of the patient and discussed their management with the physician [employer] C[employer] Planting Equipment Operator. I have reviewed the Physician [employer] C[employer] Planting Equipment Operator's notes and agree with the documented findings and plan of care)
[2018-03-20 15:09] LABS: Magnesium 2.8 mg/dL (1.6-2.3)
[2018-03-20] MEDS ORDERED: Potassium Replacement Protocol 1 EACH MISC MISCELLANE PRN ×2 (15:39→19:52)
[2018-03-20] MEDS ORDERED: IOPAMIDOL-300 CONTRAST 30 ML VIAL (ORAL USE) PO PRN (15:40)
[2018-03-20] MEDS: IOPAMIDOL-300 CONTRAST 30 ML VIAL (ORAL USE) PO PRN ×2 (16:19→17:35)
[2018-03-20] MEDS: PIPERACILLIN-TAZOBACTAM 3.375 GM in DEXTROSE/WATER 1 50ML.BAG IVPB SCH (17:22)
--- NOTE | 2018-03-20 18:34 | CONS ---
CONSULTATION DATE OF SERVICE: 03/20/2018 REASON FOR CONSULTATION: Sepsis. HISTORY OF PRESENT ILLNESS: The patient is an 87-year-old female who was brought into the ER at [facility] by the EMS with a complaint of mental status changes. Apparently her symptoms had been going on for a day or two before the patient was brought into the hospital. The patient apparently did have some diarrhea that was going on for about 2- 3 weeks; however, over the last two days the patient did not have any bowel movement. The patient herself denies any headache to me. When asked specifically about any chest pain, she says "no." No shortness of breath. Very minimal cough, which is normal for her, with no significant or worsening sputum production. No hemoptysis. The patient has been complaining of pain in the abdominal area; she points more toward the lower abdomen; but she is not specific about how bad it is. She says "bad" but is unable to tell me from zero to 10. It is more of a dull aching pain, not colicky. The patient denies having any nausea and no diarrhea; rather, the patient is constipated, with no bowel movement for the last two days. The patient denies significant burning or frequency of urine. For the same symptoms, the patient was evaluated by the ER physician. On arrival in the ER, the patient had a CT of the brain that was negative for any bleed. The patient did have a chest x-ray which shows pulmonary vascular congestion with interstitial prominence. Degree of inspiration is limiting; however, basilar infiltrate is present. The patient did not have any high-grade fever, though. She was tachycardic and her white count was elevated at 19,000. The patient also had elevated BUN and creatinine. Troponin was slightly elevated. The patient did have cloudy urine with small leukocyte esterases, 16 WBCs and many bacteria. The patient was initially started on Rocephin and subsequently switched over to Zosyn and vancomycin. She was admitted to hospital. Infectious Disease was consulted for further recommendations regarding antibiotic therapy. REVIEW OF SYSTEMS: CONSTITUTIONAL: Positive for weakness. No high-grade fever. EYES: No complaint. ENT: No complaint. RESPIRATORY: As per HPI. CARDIOVASCULAR: No complaint. GENITOURINARY: No complaint. GASTROINTESTINAL: As per HPI. MUSCULOSKELETAL: No complaint. INTEGUMENTARY: No complaint. PSYCHOLOGICAL: No complaint. ENDOCRINE: No complaint. NEUROLOGICAL: No complaint. PAST MEDICAL HISTORY: 1. Hypertension. 2. Rheumatoid arthritis. 3. Hypothyroidism. PAST SURGICAL HISTORY: 1. Bilateral cataract surgery. 2. Colonoscopy. 3. Polypectomy. 4. Umbilical hernia repair. 5. Right ankle surgery. SOCIAL HISTORY: The patient is currently an everyday smoker. She has been smoking since age of 11. No drinking or drug use. FAMILY HISTORY: Mother of old age. Father had history of throat cancer and from it. ALLERGIES: NO KNOWN DRUG ALLERGIES. CURRENT MEDICATIONS: 1. Tylenol. 2. Pepcid. 3. Heparin. 4. Synthroid. 5. Vancomycin, Pharmacy to dose. 6. Narcan. 7. Niacin. 8. Zosyn. 9. Risperdal. PHYSICAL EXAMINATION: Her blood pressure is 152/96, pulse of 107, temperature 98.7. She is 95% on 2 L nasal cannula. General description is an elderly female up in the bed in no distress. No tachypnea or accessory muscle of respiration use. HEENT examination shows pallor. No scleral icterus. Oral mucosa membrane is dry. No pharyngeal erythema or thrush. NECK: Trachea is central. No thyromegaly. LUNGS: Unlabored breathing with some decreased breath sounds in the bases. No wheeze or crackle. HEART: S1, S2. Regular rate and rhythm. ABDOMEN: Soft. Patient is distended, mildly tender in the lower quadrant area. Mild guarding. No rigidity. No organomegaly. EXTREMITIES: No edema of feet. SKIN EXAMINATION: No rash or mass palpable. Neurologically the patient is awake, alert, oriented x2. Mood and affect normal. LABS: Hemoglobin 9.8, white count 19,000, BUN of 74, creatinine 1.74. Troponin slightly elevated. Urine was cloudy and mildly positive. Cultures are currently pending. Chest x-ray with mostly atelectasis at the base. DIAGNOSTIC IMPRESSION AND PLAN: 1. Patient admitted to hospital with mental status changes in a patient who did have abdominal distention, tenderness and guarding. Source is likely abdominal. Pneumonia is less likely but not entirely excluded. Did have a mildly positive UA; however, clinically doubt all her symptoms are related to a mild UTI. 2. Patient who does have advanced age and borderline kidney function and is at high risk of nephrotoxicity from vancomycin. Clinical suspicion is low for a gram- positive infection such as MRSA. PLAN: 1. We will obtain a CT of abdomen and pelvis with oral contrast only. No IV contrast in view of the elevated creatinine. 2. Discontinue the vancomycin. 3. Gentle IV fluid. 4. Zosyn 3.375 grams q.8 hours. 5. Will follow up on clinical condition and culture to further adjust medication if needed. Thank you for this consultation. Will follow this patient along with you. JUSTUS / IJN: [id number] /
[2018-03-20 18:54] LABS: Creatine Kinase MB 1.1 ng/mL (0.0-2.4)
[2018-03-20 19:02] LABS: Troponin I 0.039 ng/mL (0.000-0.034)
--- NOTE | 2018-03-20 19:24 | CT ---
EXAMINATION TYPE: CT abdomen pelvis wo con DATE OF EXAM: 03/20/2018 COMPARISON: HISTORY: abdominal pain CT DLP: 779.7 mGycm Automated exposure control for dose reduction was used. TECHNIQUE: Helical acquisition of images was performed from the lung bases through the pelvis. FINDINGS: Heart is enlarged. There is patchy atelectasis and infiltrate at the lung bases. There is small right pleural effusion. There is pneumoperitoneum. There is hiatal hernia. Liver shows no focal defect. Bile ducts are not dilated. There is 2 cm calcification in the right upp er quadrant that could be calcified gallstone in a contracted gallbladder. Spleen appears normal. There are bilateral renal cortical cysts that measure up to 3 cm. There is no hydronephrosis. There i s no retroperitoneal adenopathy. Abdominal aorta is atheromatous. Bladder distends smoothly. There is 8 x 5 cm area of fluid and air in the anterior lower abdomen. This could be extraluminal. The lumbar spine appears intact. There is no compression fracture. There is no evidence of inguinal hernia. There is subcutaneous air over the anterior mid abdomen. IMPRESSION: RIGHT LOWER LOBE INFILTRATE AND ATELECTASIS. CARDIOMEGALY. HIATAL HERNIA. PNEUMOPERITONEUM. COMPLEX MASS IN THE LOWER ANTERIOR ABDOMEN COULD BE INTRAPERITONEAL ABSCESS. THIS EXAM WAS DISCUSSED WITH THE NURSE TASIA AT 7:20 PM.
[2018-03-20] MEDS ORDERED: risperiDONE 0.5 MG TAB PO SCH (21:00)
[2018-03-20] MEDS: POTASSIUM CHLORIDE ER 20 MEQ TAB.ER PO SCH ×2 (21:28→21:29)
[2018-03-20] MEDS: HEPARIN SODIUM,PORCINE 5,000 UNIT/ML 1 ML VIAL SQ SCH (21:32)
[2018-03-20] MEDS: SODIUM CHLORIDE 0.9% 1,000 ML IV ONE (22:04)
[2018-03-20 22:35] LABS: Glucose,Whole Blood 146 mg/dL (75-99)
[2018-03-20] MEDS: POTASSIUM CHLORIDE 10 MEQ in WATER FOR INJECTION 1 100ML.BAG IVPB SCH (22:51)
[2018-03-20] MEDS: SODIUM CHLORIDE 0.9% 1,000 ML IV SCH (22:52)
[2018-03-20 23:34] LABS: Creatine Kinase MB 1.6 ng/mL (0.0-2.4)
[2018-03-20 23:37] LABS: Troponin I 0.044 ng/mL (0.000-0.034)
[2018-03-21] MEDS: POTASSIUM CHLORIDE 10 MEQ in WATER FOR INJECTION 1 100ML.BAG IVPB SCH ×5 (00:03→12:28)
[2018-03-21] MEDS: metroNIDAZOLE-NS PMX 500 MG in SALINE 1 100ML.BAG IVPB SCH ×4 (00:04→23:22)
[2018-03-21] MEDS: PIPERACILLIN-TAZOBACTAM 3.375 GM in DEXTROSE/WATER 1 50ML.BAG IVPB SCH ×4 (01:34→23:22)
[2018-03-21 01:48] LABS: Iron Saturation 5.98 (12.00-45.00)
[2018-03-21] MEDS: METOPROLOL TARTRATE 5 MG/5 ML VIAL IVP PRN ×2 (04:35→21:15)
[2018-03-21 04:38] LABS: HCT 33.7 % (34.0-46.0); HGB 10.2 gm/dL (11.4-16.0); Hypochromasia Marked; MCH 24.3 pg (25.0-35.0); MCHC 30.2 g/dL (31.0-37.0); MCV 80.5 fL (80.0-100.0); Mean Platelet Volume 7.5; Platelet Count 461 k/uL (150-450); RBC 4.18 m/uL (3.80-5.40); RDW 15.1 % (11.5-15.5); WBC 21.6 k/uL (3.8-10.6)
[2018-03-21 05:14] LABS: Calcium 8.2 mg/dL (8.4-10.2); Magnesium 2.6 mg/dL (1.6-2.3); Phosphorus 2.8 mg/dL (2.5-4.5); Potassium 3.7 mmol/L (3.5-5.1); Total Bilirubin 0.6 mg/dL (0.2-1.3); Total Protein 4.5 g/dL (6.3-8.2)
[2018-03-21 05:47] LABS: Band Neutrophils % 45 %; Monocytes # (M) 0.43 k/uL (0-1.0); Neutrophils % (M) 53 %; Nucleated Red Blood Cells 0 /100 WBC (0-0); Total Cells Counted 200
[2018-03-21 05:49] LABS: Anisocytosis (M) Present; Poikilocytosis (M) Present; Polychromasia Present
[2018-03-21 05:50] LABS: Crenated RBC Present; Large Platelets Present; Ovalocytes Present; RBC Fragments Present; Target Cells Present; Toxic Granulation Present
[2018-03-21] MEDS ORDERED: VANCOMYCIN 1,250 MG in SODIUM CHLORIDE 0.9% 250 ML IVPB ONE (06:00)
[2018-03-21] MEDS: SODIUM CHLORIDE 0.9% 1,000 ML IV SCH ×2 (06:29→14:46)
[2018-03-21] MEDS ORDERED: LEVOTHYROXINE 25 MCG TAB PO SCH (06:30)
[2018-03-21] MEDS ORDERED: Potassium Replacement Protocol 1 EACH MISC MISCELLANE PRN (06:30)
--- NOTE | 2018-03-21 06:53 | XR ---
EXAMINATION TYPE: XR chest 1V DATE OF EXAM: 03/21/2018 HISTORY: RLL infiltrates, compare with recent exam. REFERENCE: Previous study dated 03/20/2018. FINDINGS: The heart remains enlarged. There continues be vascular congestion. The degree of interstit ial change has improved. There is worsening left basilar airspace disease. There is a left-sided effu sussy. IMPRESSION: 1. IMPROVING CHANGES OF HEART FAILURE. 2. WORSENING LEFT BASILAR AIRSPACE DISEASE WITH A CONCOMITANT EFFUSION.
--- NOTE | 2018-03-21 08:01 | P.GSCN ---
History of Present Illness Consult date: 03/21/18 Reason for Consult: Abdominal pain, pneumoperitoneum History of present illness: This is an 87-year-old female who came in through the emergency room yesterday. Patient had altered mentation. She was ready diagnosed with urosepsis. Patient had a CAT scan performed which showed evidence of free air and a complex mass in the pelvis related to the sigmoid colon. The patient was transferred to the ICU overnight for fluid hydration. This morning the patient has significant abdominal pain. She has been tachycardic with pulse in the 120s. 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", "has a form of ra", "drinks coffee all day long.(6-7 pots made per day) History of Any Multi-Drug Resistant Organisms: None Reported Past Surgical History: Hernia Repair Additional Past Surgical History / Comment(s): favian cataracts, colonoscopy, polypectomy, umb hernia, rt ankle sx Past Anesthesia/Blood Transfusion Reactions: Motion Sickness Smoking Status: Current every day smoker - Past Family History Mother Family Medical History: No Reported History Additional Family Medical History / Comment(s): of old age Father Family Medical History: Cancer Additional Family Medical History / Comment(s): smoker- from throat cancer Medications and Allergies Home Medications Medication Instructions Recorded Confirmed Type Levothyroxine Sodium [Synthroid] 25 mcg PO DAILY 10/10/16 03/20/18 History Primidone [Mysoline] 25 mg PO DAILY PRN 10/10/16 03/20/18 History risperiDONE [RisperDAL] 0.5 mg PO HS 10/10/16 03/20/18 History Hydrochlorothiazide [Hydrodiuril] 12.5 mg PO DAILY 03/20/18 03/20/18 History Niacin [Niacin ER] 1,000 mg PO DAILY 03/20/18 03/20/18 History Pedi Multivit No.19/Folic Acid 200 mcg PO DAILY 03/20/18 03/20/18 History [Children's Multi-Vit Gummies] Allergies Allergy/AdvReac Type Severity Reaction Status Date / Time No Known Allergies Allergy Verified 03/20/18 11:32 Surgical - Exam Vital Signs Temp Pulse Resp BP Pulse Ox 98.7 F 112 H 16 146/67 92 L 03/20/18 10:17 03/20/18 10:17 03/20/18 10:17 03/20/18 10:17 03/20/18 10:17 - General well developed, well nourished, moderate distress - Eyes PERRL - ENT normal pinna - Neck no masses - Respiratory normal expansion - Cardiovascular Rhythm: regular - Abdomen Abdomen is distended. There is marked tenderness throughout. There is guarding with some rebound tenderness. Results - Labs 03/21/18 04:15 03/21/18 04:15 Abnormal Lab Results - Last 24 Hours (Table) 03/20/18 03/20/18 03/20/18 Range/Units 10:37 10:52 10:52 WBC 19.0 H (3.8-10.6) k/uL Hgb 9.8 L (11.4-16.0) gm/dL Hct 30.5 L (34.0-46.0) % MCV 77.0 L (80.0-100.0) fL MCH 24.8 L (25.0-35.0) pg MCHC (31.0-37.0) g/dL Plt Count 528 H (150-450) k/uL Neutrophils # 18.3 H (1.3-7.7) k/uL Neutrophils # (Manual) (1.3-7.7) k/uL Lymphocytes # 0.3 L (1.0-4.8) k/uL APTT (22.0-30.0) sec Sodium (137-145) mmol/L Potassium (3.5-5.1) mmol/L Chloride (98-107) mmol/L Carbon Dioxide (22-30) mmol/L BUN (7-17) mg/dL Creatinine (0.52-1.04) mg/dL Glucose (74-99) mg/dL POC Glucose (mg/dL) (75-99) mg/dL Plasma Lactic Acid Miguel A (0.7-2.0) mmol/L Calcium (8.4-10.2) mg/dL Magnesium (1.6-2.3) mg/dL Iron (50-170) ug/dL TIBC (228-460) ug/dL Iron Saturation (12.00-45.00) AST (14-36) U/L Total Creatine Kinase (30-135) U/L Troponin I 0.055 H* (0.000-0.034) ng/mL Total Protein (6.3-8.2) g/dL Albumin (3.5-5.0) g/dL Urine Appearance Cloudy H (Clear) Urine Protein 1+ H (Negative) Urine Blood Trace H (Negative) Ur Leukocyte Esterase Small H (Negative) Urine RBC 8 H (0-5) /hpf Urine WBC 16 H (0-5) /hpf Ur Squamous Epith Cells 6 H (0-4) /hpf Amorphous Sediment Rare H (None) /hpf Urine Bacteria Many H (None) /hpf Urine Mucus Rare H (None) /hpf 03/20/18 03/20/18 03/20/18 Range/Units 10:52 10:52 10:52 WBC (3.8-10.6) k/uL Hgb (11.4-16.0) gm/dL Hct (34.0-46.0) % MCV (80.0-100.0) fL MCH (25.0-35.0) pg MCHC (31.0-37.0) g/dL Plt Count (150-450) k/uL Neutrophils # (1.3-7.7) k/uL Neutrophils # (Manual) (1.3-7.7) k/uL Lymphocytes # (1.0-4.8) k/uL APTT 20.6 L (22.0-30.0) sec Sodium 146 H (137-145) mmol/L Potassium 2.7 L* (3.5-5.1) mmol/L Chloride 110 H (98-107) mmol/L Carbon Dioxide (22-30) mmol/L BUN 74 H (7-17) mg/dL Creatinine 1.97 H (0.52-1.04) mg/dL Glucose 135 H (74-99) mg/dL POC Glucose (mg/dL) (75-99) mg/dL Plasma Lactic Acid Miguel A (0.7-2.0) mmol/L Calcium 8.1 L (8.4-10.2) mg/dL Magnesium (1.6-2.3) mg/dL Iron 11 L (50-170) ug/dL TIBC 184 L (228-460) ug/dL Iron Saturation 5.98 L (12.00-45.00) AST (14-36) U/L Total Creatine Kinase (30-135) U/L Troponin I (0.000-0.034) ng/mL Total Protein 4.8 L (6.3-8.2) g/dL Albumin 2.1 L (3.5-5.0) g/dL Urine Appearance (Clear) Urine Protein (Negative) Urine Blood (Negative) Ur Leukocyte Esterase (Negative) Urine RBC (0-5) /hpf Urine WBC (0-5) /hpf Ur Squamous Epith Cells (0-4) /hpf Amorphous Sediment (None) /hpf Urine Bacteria (None) /hpf Urine Mucus (None) /hpf 03/20/18 03/20/18 03/20/18 Range/Units 10:52 17:12 17:12 WBC (3.8-10.6) k/uL Hgb (11.4-16.0) gm/dL Hct (34.0-46.0) % MCV (80.0-100.0) fL MCH (25.0-35.0) pg MCHC (31.0-37.0) g/dL Plt Count (150-450) k/uL Neutrophils # (1.3-7.7) k/uL Neutrophils # (Manual) (1.3-7.7) k/uL Lymphocytes # (1.0-4.8) k/uL APTT (22.0-30.0) sec Sodium (137-145) mmol/L Potassium 3.1 L (3.5-5.1) mmol/L Chloride (98-107) mmol/L Carbon Dioxide (22-30) mmol/L BUN (7-17) mg/dL Creatinine (0.52-1.04) mg/dL Glucose (74-99) mg/dL POC Glucose (mg/dL) (75-99) mg/dL Plasma Lactic Acid Miguel A (0.7-2.0) mmol/L Calcium (8.4-10.2) mg/dL Magnesium 2.8 H (1.6-2.3) mg/dL Iron (50-170) ug/dL TIBC (228-460) ug/dL Iron Saturation (12.00-45.00) AST (14-36) U/L Total Creatine Kinase (30-135) U/L Troponin I 0.039 H* (0.000-0.034) ng/mL Total Protein (6.3-8.2) g/dL Albumin (3.5-5.0) g/dL Urine Appearance (Clear) Urine Protein (Negative) Urine Blood (Negative) Ur Leukocyte Esterase (Negative) Urine RBC (0-5) /hpf Urine WBC (0-5) /hpf Ur Squamous Epith Cells (0-4) /hpf Amorphous Sediment (None) /hpf Urine Bacteria (None) /hpf Urine Mucus (None) /hpf 03/20/18 03/20/18 03/21/18 Range/Units 22:32 22:44 04:15 WBC 21.6 H (3.8-10.6) k/uL Hgb 10.2 L (11.4-16.0) gm/dL Hct 33.7 L (34.0-46.0) % MCV (80.0-100.0) fL MCH 24.3 L (25.0-35.0) pg MCHC 30.2 L (31.0-37.0) g/dL Plt Count 461 H (150-450) k/uL Neutrophils # (1.3-7.7) k/uL Neutrophils # (Manual) 21.10 H (1.3-7.7) k/uL Lymphocytes # (1.0-4.8) k/uL APTT (22.0-30.0) sec Sodium (137-145) mmol/L Potassium (3.5-5.1) mmol/L Chloride (98-107) mmol/L Carbon Dioxide (22-30) mmol/L BUN (7-17) mg/dL Creatinine (0.52-1.04) mg/dL Glucose (74-99) mg/dL POC Glucose (mg/dL) 146 H (75-99) mg/dL Plasma Lactic Acid Miguel A (0.7-2.0) mmol/L Calcium (8.4-10.2) mg/dL Magnesium (1.6-2.3) mg/dL Iron (50-170) ug/dL TIBC (228-460) ug/dL Iron Saturation (12.00-45.00) AST (14-36) U/L Total Creatine Kinase 147 H (30-135) U/L Troponin I 0.044 H* (0.000-0.034) ng/mL Total Protein (6.3-8.2) g/dL Albumin (3.5-5.0) g/dL Urine Appearance (Clear) Urine Protein (Negative) Urine Blood (Negative) Ur Leukocyte Esterase (Negative) Urine RBC (0-5) /hpf Urine WBC (0-5) /hpf Ur Squamous Epith Cells (0-4) /hpf Amorphous Sediment (None) /hpf Urine Bacteria (None) /hpf Urine Mucus (None) /hpf 03/21/18 03/21/18 Range/Units 04:15 04:15 WBC (3.8-10.6) k/uL Hgb (11.4-16.0) gm/dL Hct (34.0-46.0) % MCV (80.0-100.0) fL MCH (25.0-35.0) pg MCHC (31.0-37.0) g/dL Plt Count (150-450) k/uL Neutrophils # (1.3-7.7) k/uL Neutrophils # (Manual) (1.3-7.7) k/uL Lymphocytes # (1.0-4.8) k/uL APTT (22.0-30.0) sec Sodium 147 H (137-145) mmol/L Potassium (3.5-5.1) mmol/L Chloride 119 H (98-107) mmol/L Carbon Dioxide 19 L (22-30) mmol/L BUN 64 H (7-17) mg/dL Creatinine 1.36 H (0.52-1.04) mg/dL Glucose 137 H (74-99) mg/dL POC Glucose (mg/dL) (75-99) mg/dL Plasma Lactic Acid Miguel A 2.7 H* (0.7-2.0) mmol/L Calcium 8.2 L (8.4-10.2) mg/dL Magnesium 2.6 H (1.6-2.3) mg/dL Iron (50-170) ug/dL TIBC (228-460) ug/dL Iron Saturation (12.00-45.00) AST 40 H (14-36) U/L Total Creatine Kinase (30-135) U/L Troponin I (0.000-0.034) ng/mL Total Protein 4.5 L (6.3-8.2) g/dL Albumin 2.0 L (3.5-5.0) g/dL Urine Appearance (Clear) Urine Protein (Negative) Urine Blood (Negative) Ur Leukocyte Esterase (Negative) Urine RBC (0-5) /hpf Urine WBC (0-5) /hpf Ur Squamous Epith Cells (0-4) /hpf Amorphous Sediment (None) /hpf Urine Bacteria (None) /hpf Urine Mucus (None) /hpf Microbiology - Last 24 Hours (Table) 03/20/18 10:52 Blood Culture Gram Stain - Preliminary Blood 03/20/18 10:52 Blood Culture - Final Blood 03/20/18 10:37 Urine Culture - Preliminary Urine,Clean Catch Diabetes panel 03/20/18 03/20/18 03/21/18 Range/Units 10:52 17:12 04:15 Sodium 146 H 147 H (137-145) mmol/L Potassium 2.7 L* 3.1 L 3.7 (3.5-5.1) mmol/L Chloride 110 H 119 H (98-107) mmol/L Carbon Dioxide 25 19 L (22-30) mmol/L BUN 74 H 64 H (7-17) mg/dL Creatinine 1.97 H 1.36 H (0.52-1.04) mg/dL Glucose 135 H 137 H (74-99) mg/dL Calcium 8.1 L 8.2 L (8.4-10.2) mg/dL AST 36 40 H (14-36) U/L ALT 22 26 (9-52) U/L Alkaline Phosphatase 85 75 (38-126) U/L Total Protein 4.8 L 4.5 L (6.3-8.2) g/dL Albumin 2.1 L 2.0 L (3.5-5.0) g/dL Thyroid panel 03/20/18 Range/Units 10:52 TSH 0.759 (0.465-4.680) mIU/L Calcium panel 03/20/18 03/21/18 Range/Units 10:52 04:15 Calcium 8.1 L 8.2 L (8.4-10.2) mg/dL Phosphorus 2.8 (2.5-4.5) mg/dL Albumin 2.1 L 2.0 L (3.5-5.0) g/dL Pituitary panel 03/20/18 03/20/18 03/20/18 Range/Units 10:52 10:52 17:12 Sodium 146 H (137-145) mmol/L Potassium 2.7 L* 3.1 L (3.5-5.1) mmol/L Chloride 110 H (98-107) mmol/L Carbon Dioxide 25 (22-30) mmol/L BUN 74 H (7-17) mg/dL Creatinine 1.97 H (0.52-1.04) mg/dL Glucose 135 H (74-99) mg/dL Calcium 8.1 L (8.4-10.2) mg/dL TSH 0.759 (0.465-4.680) mIU/L 03/21/18 Range/Units 04:15 Sodium 147 H (137-145) mmol/L Potassium 3.7 (3.5-5.1) mmol/L Chloride 119 H (98-107) mmol/L Carbon Dioxide 19 L (22-30) mmol/L BUN 64 H (7-17) mg/dL Creatinine 1.36 H (0.52-1.04) mg/dL Glucose 137 H (74-99) mg/dL Calcium 8.2 L (8.4-10.2) mg/dL TSH (0.465-4.680) mIU/L Adrenal panel 03/20/18 03/20/18 03/21/18 Range/Units 10:52 17:12 04:15 Sodium 146 H 147 H (137-145) mmol/L Potassium 2.7 L* 3.1 L 3.7 (3.5-5.1) mmol/L Chloride 110 H 119 H (98-107) mmol/L Carbon Dioxide 25 19 L (22-30) mmol/L BUN 74 H 64 H (7-17) mg/dL Creatinine 1.97 H 1.36 H (0.52-1.04) mg/dL Glucose 135 H 137 H (74-99) mg/dL Calcium 8.1 L 8.2 L (8.4-10.2) mg/dL Total Bilirubin 0.6 0.6 (0.2-1.3) mg/dL AST 36 40 H (14-36) U/L ALT 22 26 (9-52) U/L Alkaline Phosphatase 85 75 (38-126) U/L Total Protein 4.8 L 4.5 L (6.3-8.2) g/dL Albumin 2.1 L 2.0 L (3.5-5.0) g/dL - Imaging CT scan - abdomen: report reviewed (Complex mass in the lower abdomen related to abscess.) Assessment and Plan Assessment: Acute abdominal pain Pneumoperitoneum Complex mass in the lower abdomen related to abscess. 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 The patient will be taken the OR today for exploratory laparotomy with colostomy and possible colectomy. The patient is extremely high risk. I discussed this with the patient's daughter.
[2018-03-21] MEDS ORDERED: SODIUM CHLORIDE 0.9% 1,000 ML IV ONE ×3 (08:39→22:20)
[2018-03-21] MEDS: SODIUM CHLORIDE 0.9% 1,000 ML IV ONE (08:42)
[2018-03-21] MEDS ORDERED: NIACIN TR 500 MG CAPSULE.ER PO SCH (09:00)
[2018-03-21] MEDS ORDERED: SPIRONOLACTONE 25 MG TAB PO SCH (09:00)
[2018-03-21] MEDS ORDERED: FAMOTIDINE 20 MG TAB PO SCH (09:00)
[2018-03-21] MEDS ORDERED: MIDAZOLAM 2 MG/2 ML VIAL ONE (09:48)
[2018-03-21] MEDS ORDERED: PROPOFOL 10 MG/ML 20 ML VIAL IV ONE (09:48)
[2018-03-21] MEDS ORDERED: SUCCINYLCHOLINE CHLORIDE 100 MG/5 ML SYR IV ONE (09:48)
[2018-03-21] MEDS ORDERED: IV FLUID CONTINUATION 1,000 ML IV ONE (09:48)
[2018-03-21] MEDS ORDERED: LACTATED RINGERS 1,000 ML IV ONE ×2 (09:48→10:20)
[2018-03-21] MEDS ORDERED: LIDOCAINE 1% INJ 10MG/ML (20 ML MDV) ONE (09:48)
[2018-03-21] MEDS ORDERED: ROCURONIUM BROMIDE 10 MG/ML 10 ML VIAL IV ONE (09:48)
[2018-03-21] MEDS ORDERED: fentaNYL (PF) 50 MCG/ML 2 ML AMP ONE (09:48)
--- NOTE | 2018-03-21 10:15 | P.CNPUL ---
History of Present Illness Consult date: 03/21/18 Requesting physician: Rachel Fierro Reason for consult: other (Acute surgical abdomen) Chief complaint: Altered mental status History of present illness: This is an 87-year-old female admitted on 03/20/2018, her chief complaint according to the family was altered mental status and level of consciousness. Apparently there has been a decline in mental status over the last few days. Upon EMS arrival the patient was noted to be hypotensive and tachycardic. She had no complaints of pain. The patient herself is a very poor historian obviously she has some history of underlying dementia. Workup in the ER showed a definite leukocytosis, abnormal electrolytes with elevated sodium and low potassium, acute kidney injury with BUN of 74 creatinine of 1.97, and borderline elevated lactic acid. The other concern about this patient was the fact that she did not have bowel movement for few days. A week earlier, the patient was complaining of diarrhea. She was seen by infectious disease on consultation, and a CT of the abdomen and pelvis was recommended with oral contrast. In the meantime patient received Zosyn and vancomycin. CT of the abdomen came back abnormal showing pneumoperitoneum, complex mass in the lower anterior abdomen was felt to be possibly an intraperitoneal abscess. Hence surgery was consulted, patient was transferred to the ICU last night, given more fluids, kept on antibiotics, and initially there was a bit of a concern whether the family was agreeable to surgery. The surgeon recommended reevaluation this morning, and I was notified about this patient last night. I did recommend immediate surgical intervention, however patient needed to be optimized in the ICU, and obviously she is going to surgery today by Dr. Hernandez. The patient herself is again a very poor historian, denies any specific complaints, she is confused, however her abdomen is tender to palpation , and slightly rigid. 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", "has a form of ra", "drinks coffee all day long.(6-7 pots made per day) History of Any Multi-Drug Resistant Organisms: None Reported Past Surgical History: Hernia Repair Additional Past Surgical History / Comment(s): favian cataracts, colonoscopy, polypectomy, umb hernia, rt ankle sx Past Anesthesia/Blood Transfusion Reactions: Motion Sickness Smoking Status: Current every day smoker - Past Family History Mother Family Medical History: No Reported History Additional Family Medical History / Comment(s): of old age Father Family Medical History: Cancer Additional Family Medical History / Comment(s): smoker- from throat cancer Medications and Allergies Home Medications Medication Instructions Recorded Confirmed Type Levothyroxine Sodium [Synthroid] 25 mcg PO DAILY 10/10/16 03/20/18 History Primidone [Mysoline] 25 mg PO DAILY PRN 10/10/16 03/20/18 History risperiDONE [RisperDAL] 0.5 mg PO HS 10/10/16 03/20/18 History Hydrochlorothiazide [Hydrodiuril] 12.5 mg PO DAILY 03/20/18 03/20/18 History Niacin [Niacin ER] 1,000 mg PO DAILY 03/20/18 03/20/18 History Pedi Multivit No.19/Folic Acid 200 mcg PO DAILY 03/20/18 03/20/18 History [Children's Multi-Vit Gummies] Allergies Allergy/AdvReac Type Severity Reaction Status Date / Time No Known Allergies Allergy Verified 03/20/18 11:32 Physical Exam Vitals: Vital Signs Temp Pulse Pulse Pulse Resp BP BP 03/21/18 08:00 98.1 F 116 H 30 H 116/56 03/21/18 07:30 116 H 40 H 03/21/18 07:00 114 H 116/58 03/21/18 06:30 113 H 03/21/18 06:00 111 H 124/56 03/21/18 05:30 109 H 03/21/18 05:00 106 H 104/55 03/21/18 04:30 156 H 104/55 03/21/18 04:00 98.3 F 142 H 136 H 22 119/58 03/21/18 03:30 124 H 119/58 03/21/18 03:00 124 H 126/64 03/21/18 02:40 126 H 126/64 03/21/18 02:20 129 H 126/64 03/21/18 02:00 128 H 126/64 03/21/18 01:40 128 H 03/21/18 01:20 129 H 122/59 03/21/18 01:00 126 H 122/59 03/21/18 00:40 131 H 133/61 03/21/18 00:20 124 H 124/58 03/21/18 00:00 98.6 F 134 H 130 H 124/58 03/20/18 23:40 127 H 127/83 03/20/18 23:20 128 H 141/75 03/20/18 23:05 133 H 141/75 03/20/18 23:00 118 H 141/75 03/20/18 22:48 98.4 F 117 H 22 03/20/18 21:35 03/20/18 21:30 140 H 120/63 03/20/18 20:00 98.8 F 114 H 128 H 18 135/75 03/20/18 16:00 98.0 F 104 H 18 123/63 03/20/18 15:33 98.7 F 107 H 18 152/96 03/20/18 14:01 104 H 18 03/20/18 13:36 107 H 18 152/96 03/20/18 12:28 119 H 18 134/95 03/20/18 11:03 99 03/20/18 10:17 98.7 F 112 H 16 146/67 Pulse Ox 03/21/18 08:00 97 03/21/18 07:30 97 03/21/18 07:00 96 03/21/18 06:30 95 03/21/18 06:00 96 03/21/18 05:30 97 03/21/18 05:00 97 03/21/18 04:30 94 L 03/21/18 04:00 93 L 03/21/18 03:30 94 L 03/21/18 03:00 96 03/21/18 02:40 95 03/21/18 02:20 94 L 03/21/18 02:00 95 03/21/18 01:40 94 L 03/21/18 01:20 91 L 03/21/18 01:00 92 L 03/21/18 00:40 97 03/21/18 00:20 93 L 03/21/18 00:00 95 03/20/18 23:40 94 L 03/20/18 23:20 95 03/20/18 23:05 96 03/20/18 23:00 95 03/20/18 22:48 90 L 03/20/18 21:35 92 L 03/20/18 21:30 03/20/18 20:00 94 L 03/20/18 16:00 95 03/20/18 15:33 95 03/20/18 14:01 03/20/18 13:36 95 03/20/18 12:28 91 L 03/20/18 11:03 03/20/18 10:17 92 L Intake and Output 03/20/18 03/21/18 03/21/18 22:59 06:59 14:59 Intake Total 1200 1875 535 Output Total 545 120 Balance 1200 1330 415 Intake: IV 1875 535 Piperacillin-Tazobactam 3 50 .375 gm In Dextrose/Water 1 50ml.bag @ 12.5 mls/hr IVPB Q8HR [facility] Rx#: [id number] Sodium Chloride 0.9% 1, 875 375 000 ml @ 125 mls/hr IV . Q8H [facility] Rx#:[id number] Sodium Chloride 0.9% 1, 1000 10 000 ml @ 999 mls/hr IV . Q1H1M ONE Rx#:[id number] flagyl 100 Intake, IV Titration 1200 Amount Azithromycin 500 mg In 250 Sodium Chloride 0.9% 250 ml @ 250 mls/hr IVPB ONCE ST[facility] Rx#:[id number] Piperacillin-Tazobactam 3 50 .375 gm In Dextrose/Water 1 50ml.bag @ 12.5 mls/hr IVPB Q8HR [facility] Rx#: [id number] Potassium Chloride 20 meq 100 In Water For Injection 1 100ml.bag @ 50 mls/hr IVPB Q2H [facility] Rx#: [id number] Sodium Chloride 0.9% 500 500 ml @ 999 mls/hr IV .Q31M ONE Rx#:[id number] Vancomycin 1,250 mg In 250 Sodium Chloride 0.9% 250 ml @ 125 mls/hr IVPB ONCE ONE Rx#:[id number] cefTRIAXone 1,000 mg In 50 Sodium Chloride 0.9% 50 ml @ 100 mls/hr IVPB Q24HR [facility] Rx#:[id number] Output: Urine 545 120 Other: Voiding Method Indwelling Catheter Indwelling Catheter # Voids 0 # Bowel Movements 0 Weight 63.6 kg Physical Exam revealed an 87-year-old female in no distress. Asymptomatic. Confused. Head: Atraumatic, normocephalic, slightly pale. HEENT:[Neck is supple.] [No neck masses.] [No thyromegaly.] [No JVD.] PERRLA, EOMI, Chest: [Clear throughout, no crackles, no rhonchi, no wheezes.] Cardiac Exam: [Tachycardic, Normal S1 and S2, no S3 gallop, no murmur.] Abdomen: [Distended abdomen is noted, significant tenderness noted throughout. There is guarding and rebound tenderness noted throughout. Diminished bowel sounds. Extremities: [No clubbing, no edema, no cyanosis.] Neurological Exam: Confused, follows simple instructions, patient has underlying dementia. Lymphatics: No lymphadenopathy. Skin: No rashes. Results - Laboratory Findings CBC and BMP: 03/21/18 04:15 03/21/18 04:15 PT/INR, D-dimer PT 10.9 sec (9.0-12.0) 03/20/18 10:52 INR 1.1 (<1.2) 03/20/18 10:52 Abnormal lab findings: Abnormal Labs 03/20/18 03/20/18 03/20/18 10:37 10:52 10:52 WBC 19.0 H Hgb 9.8 L Hct 30.5 L MCV 77.0 L MCH 24.8 L MCHC Plt Count 528 H Neutrophils # 18.3 H Neutrophils # (Manual) Lymphocytes # 0.3 L APTT Sodium Potassium Chloride Carbon Dioxide BUN Creatinine Glucose POC Glucose (mg/dL) Plasma Lactic Acid Miguel A Calcium Magnesium Iron TIBC Iron Saturation AST Total Creatine Kinase Troponin I 0.055 H* Total Protein Albumin Urine Appearance Cloudy H Urine Protein 1+ H Urine Blood Trace H Ur Leukocyte Esterase Small H Urine RBC 8 H Urine WBC 16 H Ur Squamous Epith Cells 6 H Amorphous Sediment Rare H Urine Bacteria Many H Urine Mucus Rare H 03/20/18 03/20/18 03/20/18 10:52 10:52 10:52 WBC Hgb Hct MCV MCH MCHC Plt Count Neutrophils # Neutrophils # (Manual) Lymphocytes # APTT 20.6 L Sodium 146 H Potassium 2.7 L* Chloride 110 H Carbon Dioxide BUN 74 H Creatinine 1.97 H Glucose 135 H POC Glucose (mg/dL) Plasma Lactic Acid Miguel A Calcium 8.1 L Magnesium Iron 11 L TIBC 184 L Iron Saturation 5.98 L AST Total Creatine Kinase Troponin I Total Protein 4.8 L Albumin 2.1 L Urine Appearance Urine Protein Urine Blood Ur Leukocyte Esterase Urine RBC Urine WBC Ur Squamous Epith Cells Amorphous Sediment Urine Bacteria Urine Mucus 03/20/18 03/20/18 03/20/18 10:52 17:12 17:12 WBC Hgb Hct MCV MCH MCHC Plt Count Neutrophils # Neutrophils # (Manual) Lymphocytes # APTT Sodium Potassium 3.1 L Chloride Carbon Dioxide BUN Creatinine Glucose POC Glucose (mg/dL) Plasma Lactic Acid Miguel A Calcium Magnesium 2.8 H Iron TIBC Iron Saturation AST Total Creatine Kinase Troponin I 0.039 H* Total Protein Albumin Urine Appearance Urine Protein Urine Blood Ur Leukocyte Esterase Urine RBC Urine WBC Ur Squamous Epith Cells Amorphous Sediment Urine Bacteria Urine Mucus 03/20/18 03/20/18 03/21/18 22:32 22:44 04:15 WBC 21.6 H Hgb 10.2 L Hct 33.7 L MCV MCH 24.3 L MCHC 30.2 L Plt Count 461 H Neutrophils # Neutrophils # (Manual) 21.10 H Lymphocytes # APTT Sodium Potassium Chloride Carbon Dioxide BUN Creatinine Glucose POC Glucose (mg/dL) 146 H Plasma Lactic Acid Miguel A Calcium Magnesium Iron TIBC Iron Saturation AST Total Creatine Kinase 147 H Troponin I 0.044 H* Total Protein Albumin Urine Appearance Urine Protein Urine Blood Ur Leukocyte Esterase Urine RBC Urine WBC Ur Squamous Epith Cells Amorphous Sediment Urine Bacteria Urine Mucus 03/21/18 03/21/18 04:15 04:15 WBC Hgb Hct MCV MCH MCHC Plt Count Neutrophils # Neutrophils # (Manual) Lymphocytes # APTT Sodium 147 H Potassium Chloride 119 H Carbon Dioxide 19 L BUN 64 H Creatinine 1.36 H Glucose 137 H POC Glucose (mg/dL) Plasma Lactic Acid Miguel A 2.7 H* Calcium 8.2 L Magnesium 2.6 H Iron TIBC Iron Saturation AST 40 H Total Creatine Kinase Troponin I Total Protein 4.5 L Albumin 2.0 L Urine Appearance Urine Protein Urine Blood Ur Leukocyte Esterase Urine RBC Urine WBC Ur Squamous Epith Cells Amorphous Sediment Urine Bacteria Urine Mucus - Diagnostic Findings Additional studies: All studies were reviewed including CT of the abdomen and pelvis, as noted in HPI. Assessment and Plan Assessment: Impression: 1 acute pneumoperitoneum, secondary to perforated viscus/bowel perforation. 2 acute surgical abdomen will definitely require immediate exploratory laparotomy and repair. 3 acute abdominal sepsis and possible abdominal abscess. 4 history of multiple medical problems including rheumatoid arthritis, hypothyroidism, hypertension. Recommendation: Immediate surgical intervention, discussed her condition with the surgeon on the case, continue antibiotics, patient will be expected to come back to the ICU on mechanical ventilation, and we'll address that accordingly. Of course the patient is a high surgical risk, considering her age and considering her underlying dementia. We'll continue to follow. Time with Patient: Greater than 30
--- NOTE | 2018-03-21 11:19 | P.OP ---
Date of Procedure: 03/21/18 Preoperative Diagnosis: Perforated viscus Postoperative Diagnosis: Perforated rectosigmoid Procedure(s) Performed: Exploratory laparotomy Sigmoid colectomy with end colostomy Partial omentectomy Repair of incisional hernia Left salpingectomy Washout of peritoneal cavity Anesthesia: CRISTIN Surgeon: Aman Hernandez Estimated Blood Loss (ml): 100 Pathology: other (Rectosigmoid, left salpingectomy) Condition: critical Disposition: ICU Description of Procedure: The patient's placed on the operating table in the supine position. She received general anesthesia. Her abdomen was entered through a midline incision. There was incarcerated incisional hernia with incarcerated omentum utilized on entering the abdomen. Incarcerated omentum was transected and sent to pathology. There was a large amount of. Fluid in the abdomen. The Bookwalter tract with wound. There was explored. There appeared to be a perforation near the rectosigmoid. The proximal sigmoid colon was transected. And then using LigaSure device the mesentery of the sigmoid colon was divided. Dissection was taken down level of the rectum near the peritoneal fold. At this point there was obvious that there was a tumor perforation. The left salpinx was attached to the area the tumor. This was transected with the Enseal device. He was sent to pathology. The rectum was perforated in a manner will and where it was completely transected. At this point the specimen sent to pathology. The abdomen was then irrigated significantly. At least 6 L of fluid was used. The abdomen. A QI drains placed over the rectal stump. This was brought through separate stab incision. The colostomy was then brought out through the left lower quadrant. The fascia was closed with looped #1 PDS suture. Skin was all stable. The colostomy then matured with 3-0 Vicryl suture. Patient sent to the ICU in guarded condition.
--- NOTE | 2018-03-21 11:42 | P.HPIM ---
History of Present Illness H&P Date: 03/21/18 Chief Complaint: Nausea and vomiting Deyanira Trujillo is an 87 year old female who presented to [facility] emergency room with a chief complaint of nausea vomiting and abdominal discomfort she was evaluated in the emergency room, white blood count was within normal limits at 9.8, patient was afebrile at 96 urine analysis revealed evidence of urinary tract infection abdomen x-ray revealed evidence of small bowel ileus which is new compared to old exam, she was kept nothing by mouth and was admitted to medical floor surgical consultation with Dr. Hernandez was requested. Patient has known previous history of colon cancer was previous bowel resection. Past medical history significant for #1 history of atrial fibrillation, maintained on Coumadin #2 history of stroke affecting the left side mostly left lower extremity weakness. 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", "has a form of ra", "drinks coffee all day long.(6-7 pots made per day) History of Any Multi-Drug Resistant Organisms: None Reported Past Surgical History: Hernia Repair Additional Past Surgical History / Comment(s): favian cataracts, colonoscopy, polypectomy, umb hernia, rt ankle sx Past Anesthesia/Blood Transfusion Reactions: Motion Sickness Smoking Status: Current every day smoker - Past Family History Mother Family Medical History: No Reported History Additional Family Medical History / Comment(s): of old age Father Family Medical History: Cancer Additional Family Medical History / Comment(s): smoker- from throat cancer Medications and Allergies Home Medications Medication Instructions Recorded Confirmed Type Levothyroxine Sodium [Synthroid] 25 mcg PO DAILY 10/10/16 03/20/18 History Primidone [Mysoline] 25 mg PO DAILY PRN 10/10/16 03/20/18 History risperiDONE [RisperDAL] 0.5 mg PO HS 10/10/16 03/20/18 History Hydrochlorothiazide [Hydrodiuril] 12.5 mg PO DAILY 03/20/18 03/20/18 History Niacin [Niacin ER] 1,000 mg PO DAILY 03/20/18 03/20/18 History Pedi Multivit No.19/Folic Acid 200 mcg PO DAILY 03/20/18 03/20/18 History [Children's Multi-Vit Gummies] Allergies Allergy/AdvReac Type Severity Reaction Status Date / Time No Known Allergies Allergy Verified 03/20/18 11:32 Physical Exam Vitals: Vital Signs Temp Pulse Pulse Pulse Resp BP BP 03/21/18 08:00 98.1 F 116 H 30 H 116/56 03/21/18 07:30 116 H 40 H 03/21/18 07:00 114 H 116/58 03/21/18 06:30 113 H 03/21/18 06:00 111 H 124/56 03/21/18 05:30 109 H 03/21/18 05:00 106 H 104/55 03/21/18 04:30 156 H 104/55 03/21/18 04:00 98.3 F 142 H 136 H 22 119/58 03/21/18 03:30 124 H 119/58 03/21/18 03:00 124 H 126/64 03/21/18 02:40 126 H 126/64 03/21/18 02:20 129 H 126/64 03/21/18 02:00 128 H 126/64 03/21/18 01:40 128 H 03/21/18 01:20 129 H 122/59 03/21/18 01:00 126 H 122/59 03/21/18 00:40 131 H 133/61 03/21/18 00:20 124 H 124/58 03/21/18 00:00 98.6 F 134 H 130 H 124/58 03/20/18 23:40 127 H 127/83 03/20/18 23:20 128 H 141/75 03/20/18 23:05 133 H 141/75 03/20/18 23:00 118 H 141/75 03/20/18 22:48 98.4 F 117 H 22 03/20/18 21:35 03/20/18 21:30 140 H 120/63 03/20/18 20:00 98.8 F 114 H 128 H 18 135/75 03/20/18 16:00 98.0 F 104 H 18 123/63 03/20/18 15:33 98.7 F 107 H 18 152/96 03/20/18 14:01 104 H 18 03/20/18 13:36 107 H 18 152/96 03/20/18 12:28 119 H 18 134/95 Pulse Ox 03/21/18 08:00 97 03/21/18 07:30 97 03/21/18 07:00 96 03/21/18 06:30 95 03/21/18 06:00 96 03/21/18 05:30 97 03/21/18 05:00 97 03/21/18 04:30 94 L 03/21/18 04:00 93 L 03/21/18 03:30 94 L 03/21/18 03:00 96 03/21/18 02:40 95 03/21/18 02:20 94 L 03/21/18 02:00 95 03/21/18 01:40 94 L 03/21/18 01:20 91 L 03/21/18 01:00 92 L 03/21/18 00:40 97 03/21/18 00:20 93 L 03/21/18 00:00 95 03/20/18 23:40 94 L 03/20/18 23:20 95 03/20/18 23:05 96 03/20/18 23:00 95 03/20/18 22:48 90 L 03/20/18 21:35 92 L 03/20/18 21:30 03/20/18 20:00 94 L 03/20/18 16:00 95 03/20/18 15:33 95 03/20/18 14:01 03/20/18 13:36 95 03/20/18 12:28 91 L Intake and Output 03/20/18 03/21/18 03/21/18 22:59 06:59 14:59 Intake Total 1200 1875 1835 Output Total 545 420 Balance 1200 1330 1415 Intake: IV 1875 1835 Piperacillin-Tazobactam 3 50 .375 gm In Dextrose/Water 1 50ml.bag @ 12.5 mls/hr IVPB Q8HR [facility] Rx#: [id number] Sodium Chloride 0.9% 1, 875 375 000 ml @ 125 mls/hr IV . Q8H [facility] Rx#:[id number] Sodium Chloride 0.9% 1, 1000 10 000 ml @ 999 mls/hr IV . Q1H1M ONE Rx#:[id number] flagyl 100 Intake, IV Titration 1200 Amount Azithromycin 500 mg In 250 Sodium Chloride 0.9% 250 ml @ 250 mls/hr IVPB ONCE STA Rx#:[id number] Piperacillin-Tazobactam 3 50 .375 gm In Dextrose/Water 1 50ml.bag @ 12.5 mls/hr IVPB Q8HR [facility] Rx#: [id number] Potassium Chloride 20 meq 100 In Water For Injection 1 100ml.bag @ 50 mls/hr IVPB Q2H [facility] Rx#: [id number] Sodium Chloride 0.9% 500 500 ml @ 999 mls/hr IV .Q31M [facility] Rx#:[id number] Vancomycin 1,250 mg In 250 Sodium Chloride 0.9% 250 ml @ 125 mls/hr IVPB ONCE ONE Rx#:[id number] cefTRIAXone 1,000 mg In 50 Sodium Chloride 0.9% 50 ml @ 100 mls/hr IVPB Q24HR [facility] Rx#:[id number] Output: Urine 545 320 Estimated Blood Loss 100 Other: Voiding Method Indwelling Catheter Indwelling Catheter # Voids 0 # Bowel Movements 0 Weight 63.6 kg In general patient is alert and oriented 3 in no apparent distress HEENT head normocephalic and atraumatic Neck is supple no JVD no goiter no lymphadenopathy Chest exam reveals a few scattered crackles no wheezing Cardiac exam reveals regular heart sounds S1 and S2 no gallops no murmurs Abdomen is soft nontender no organomegaly with normal bowel sounds Extremity exam reveals no edema no cyanosis or clubbing Neurological examination reveals left sided weakness mostly in the left lower extremity which is chronic Results CBC & Chem 7: 03/21/18 04:15 03/21/18 04:15 Labs: Abnormal Lab Results - Last 24 Hours (Table) 03/20/18 03/20/18 03/20/18 Range/Units 10:52 10:52 10:52 WBC (3.8-10.6) k/uL Hgb (11.4-16.0) gm/dL Hct (34.0-46.0) % MCH (25.0-35.0) pg MCHC (31.0-37.0) g/dL Plt Count (150-450) k/uL Neutrophils # (Manual) (1.3-7.7) k/uL APTT 20.6 L (22.0-30.0) sec Sodium 146 H (137-145) mmol/L Potassium 2.7 L* (3.5-5.1) mmol/L Chloride 110 H (98-107) mmol/L Carbon Dioxide (22-30) mmol/L BUN 74 H (7-17) mg/dL Creatinine 1.97 H (0.52-1.04) mg/dL Glucose 135 H (74-99) mg/dL POC Glucose (mg/dL) (75-99) mg/dL Plasma Lactic Acid Miguel A (0.7-2.0) mmol/L Calcium 8.1 L (8.4-10.2) mg/dL Magnesium (1.6-2.3) mg/dL Iron (50-170) ug/dL TIBC (228-460) ug/dL Iron Saturation (12.00-45.00) AST (14-36) U/L Total Creatine Kinase (30-135) U/L Troponin I 0.055 H* (0.000-0.034) ng/mL Total Protein 4.8 L (6.3-8.2) g/dL Albumin 2.1 L (3.5-5.0) g/dL 03/20/18 03/20/18 03/20/18 Range/Units 10:52 10:52 17:12 WBC (3.8-10.6) k/uL Hgb (11.4-16.0) gm/dL Hct (34.0-46.0) % MCH (25.0-35.0) pg MCHC (31.0-37.0) g/dL Plt Count (150-450) k/uL Neutrophils # (Manual) (1.3-7.7) k/uL APTT (22.0-30.0) sec Sodium (137-145) mmol/L Potassium (3.5-5.1) mmol/L Chloride (98-107) mmol/L Carbon Dioxide (22-30) mmol/L BUN (7-17) mg/dL Creatinine (0.52-1.04) mg/dL Glucose (74-99) mg/dL POC Glucose (mg/dL) (75-99) mg/dL Plasma Lactic Acid Miguel A (0.7-2.0) mmol/L Calcium (8.4-10.2) mg/dL Magnesium 2.8 H (1.6-2.3) mg/dL Iron 11 L (50-170) ug/dL TIBC 184 L (228-460) ug/dL Iron Saturation 5.98 L (12.00-45.00) AST (14-36) U/L Total Creatine Kinase (30-135) U/L Troponin I 0.039 H* (0.000-0.034) ng/mL Total Protein (6.3-8.2) g/dL Albumin (3.5-5.0) g/dL 03/20/18 03/20/18 03/20/18 Range/Units 17:12 22:32 22:44 WBC (3.8-10.6) k/uL Hgb (11.4-16.0) gm/dL Hct (34.0-46.0) % MCH (25.0-35.0) pg MCHC (31.0-37.0) g/dL Plt Count (150-450) k/uL Neutrophils # (Manual) (1.3-7.7) k/uL APTT (22.0-30.0) sec Sodium (137-145) mmol/L Potassium 3.1 L (3.5-5.1) mmol/L Chloride (98-107) mmol/L Carbon Dioxide (22-30) mmol/L BUN (7-17) mg/dL Creatinine (0.52-1.04) mg/dL Glucose (74-99) mg/dL POC Glucose (mg/dL) 146 H (75-99) mg/dL Plasma Lactic Acid Miguel A (0.7-2.0) mmol/L Calcium (8.4-10.2) mg/dL Magnesium (1.6-2.3) mg/dL Iron (50-170) ug/dL TIBC (228-460) ug/dL Iron Saturation (12.00-45.00) AST (14-36) U/L Total Creatine Kinase 147 H (30-135) U/L Troponin I 0.044 H* (0.000-0.034) ng/mL Total Protein (6.3-8.2) g/dL Albumin (3.5-5.0) g/dL 03/21/18 03/21/18 03/21/18 Range/Units 04:15 04:15 04:15 WBC 21.6 H (3.8-10.6) k/uL Hgb 10.2 L (11.4-16.0) gm/dL Hct 33.7 L (34.0-46.0) % MCH 24.3 L (25.0-35.0) pg MCHC 30.2 L (31.0-37.0) g/dL Plt Count 461 H (150-450) k/uL Neutrophils # (Manual) 21.10 H (1.3-7.7) k/uL APTT (22.0-30.0) sec Sodium 147 H (137-145) mmol/L Potassium (3.5-5.1) mmol/L Chloride 119 H (98-107) mmol/L Carbon Dioxide 19 L (22-30) mmol/L BUN 64 H (7-17) mg/dL Creatinine 1.36 H (0.52-1.04) mg/dL Glucose 137 H (74-99) mg/dL POC Glucose (mg/dL) (75-99) mg/dL Plasma Lactic Acid Miguel A 2.7 H* (0.7-2.0) mmol/L Calcium 8.2 L (8.4-10.2) mg/dL Magnesium 2.6 H (1.6-2.3) mg/dL Iron (50-170) ug/dL TIBC (228-460) ug/dL Iron Saturation (12.00-45.00) AST 40 H (14-36) U/L Total Creatine Kinase (30-135) U/L Troponin I (0.000-0.034) ng/mL Total Protein 4.5 L (6.3-8.2) g/dL Albumin 2.0 L (3.5-5.0) g/dL Microbiology - Last 24 Hours (Table) 03/20/18 10:52 Blood Culture Gram Stain - Preliminary Blood 03/20/18 10:52 Blood Culture - Final Blood 03/20/18 10:37 Urine Culture - Preliminary Urine,Clean Catch Thrombosis Risk Factor Assmnt - Choose All That Apply Each Factor Represents 1 point: Sepsis (< 1month) Other Risk Factors: Yes Each Risk Factor Represents 3 Points: Age 75 years or older Other congenital or acquired thrombophilia - If yes, enter type in comment: No Thrombosis Risk Factor Assessment Total Risk Factor Score: 4 Thrombosis Risk Factor Assessment Level: Moderate Risk Assessment and Plan Plan: #1 partial bowel obstruction patient is kept nothing by mouth surgical consultation requested will monitor progress, no surgical intervention is recommended at this time. #2 Urinary tract infection, patient was started on Rocephin in the emergency room will continue eating urine culture #3 underlying history of atrial fibrillation will resume Coumadin. #4 hypertension well-controlled on current medication will continue #5 previous history of DVT with PE and has [place] filter placed, will resume Coumadin. At this time patient was evaluated by Dr. Hernandez no surgical intervention recommended she has no abdominal pain she will be started on clear liquid diet will monitor progress closely will continue with IV Rocephin and resume Coumadin will recheck labs in a.m.
[2018-03-21] MEDS ORDERED: MULTIVITAMINS, THERA 1 EACH TAB PO SCH (12:00)
[2018-03-21 12:08] LABS: Glucose,Whole Blood 189 mg/dL (75-99)
[2018-03-21] MEDS: HEPARIN SODIUM,PORCINE 5,000 UNIT/ML 1 ML VIAL SQ SCH ×2 (12:31→19:51)
[2018-03-21] MEDS: PANTOPRAZOLE 40 MG/10 ML VIAL IVP SCH (12:31)
[2018-03-21] MEDS: PROPOFOL 1,000 MG in EMPTY BAG 1 BAG IV SCH (12:41)
[2018-03-21 12:50] LABS: ABG Base Excess -10.7 mmol/L; ABG HCO3 17 mmol/L (21-25); ABG Oxygen Saturation 99.7 % (94-97); ABG PCO2 43 mmHg (35-45); ABG PH 7.21 (7.35-7.45); ABG PO2 322 mmHg (83-108); ABG TCO2 19 mmol/L (19-24)
[2018-03-21] MEDS: VANCOMYCIN 1,000 MG in SODIUM CHLORIDE 0.9% 250 ML IVPB SCH (12:51)
--- NOTE | 2018-03-21 12:59 | XR ---
EXAMINATION TYPE: XR chest 1V portable DATE OF EXAM: 03/21/2018 HISTORY: Tube placement. REFERENCE: Previous study dated 03/21/2018. FINDINGS: Patient has been intubated. ET tube is low and peaking into the right mainstem bronchus. An NG tube is placed and its tip crosses the hemidiaphragm. There is a right internal jugular catheter in place. Its tip is in the right atrium. There is left basilar airspace disease. There is a small left effusion. The right lung appears clear. Heart is upper limits of normal in size. IMPRESSION: 1. LOW-LYING ET TUBE. 2. LEFT BASILAR AIRSPACE DISEASE. 3. LEFT EFFUSION. THIS REPORT WAS PHONED TO STEVE IN THE ICU AT THE TIME OF REPORTING.
[2018-03-21] MEDS: LEVOTHYROXINE IVP 100 MCG/5 ML VIAL IV SCH (13:43)
[2018-03-21] MEDS: CHLORHEXIDINE GLUCONATE 15 ML CUP MUCOUS MEM SCH ×2 (13:43→19:51)
[2018-03-21] MEDS: NOREPINEPHRINE 16 MG in SODIUM CHLORIDE 0.9% 250 ML IV SCH (14:45)
[2018-03-21] MEDS: DEXTROSE 5% IN WATER 1,000 ML with SODIUM BICARB (1 MEQ/ML) 150 ML IV SCH (14:46)
[2018-03-21 15:24] LABS: ABG Base Excess -7.5 mmol/L; ABG HCO3 17 mmol/L (21-25); ABG Oxygen Saturation 99.2 % (94-97); ABG PCO2 26 mmHg (35-45); ABG PH 7.42 (7.35-7.45); ABG PO2 138 mmHg (83-108); ABG TCO2 18 mmol/L (19-24)
[2018-03-21] MEDS ORDERED: INSULIN ASPART 100 UNIT/ML 1 ML 10 ML VIAL SQ SCH (16:15)
[2018-03-21 16:56] LABS: Glucose,Whole Blood 181 mg/dL (75-99)
--- NOTE | 2018-03-21 17:11 | P.PN ---
Subjective Progress Note Date: 03/21/18 This is a 87-year-old female, patient of Dr. Solares. She has a known past medical history of hypothyroidism, hyperlipidemia, rheumatoid arthritis and COPD. Patient is still smoking she is working on quitting she's down to 3 cigarettes a day. Patient presents to the emergency room via EMS due to altered mental status changes. Family is now at bedside. [id number] reports that her tboqis-iz-[id number] has been more confused over the last couple a days. Prior to that she was having diarrhea for the past 3 weeks. They treated this at home with yogurt. Patient had been 2 days without a stool. Patient does report cough that is productive. She was found have evidence of pneumonia and UTI. Has been started on Rocephin and azithromycin in the ER. Also evidence of acute kidney injury creatinine elevated at 1.97. Diuretics have been placed on hold she's getting IV fluids. White count elevated at 19 hemoglobin down at 9.8 platelets 528 potassium 2.7 troponin elevated 0.055 possibly related to her acute kidney injury. Chest x-ray showing pulmonary venous Congestion and basilar atelectasis or infiltrate. Computed tomography scan of the brain showed no acute changes. EKG had shown sinus tachycardia with a heart rate of 104 with PVCs right bundle branch block and left anterior fascicular block. EMS had reported patient to be tachycardic and hypotensive. Blood pressures are now stable. Again note that the hydrochlorothiazide has been placed on hold. Discontinued the azithromycin due to its interaction with the Risperdal which she takes in the evening. At this time we'll continue with Rocephin. Patient denies any chest pain or shortness of breath. Denies any nausea or vomiting. Bowel movements have improved. Denies any burning with urination or frequency or urgency. Patient does live with [id number] at home. Baseline mentation is usually alert and orientated to name and place. On 03/21/2018 patient was seen and examined in the intensive care unit she is intubated sedated maintained on mechanical ventilation she is maintained on IV pressors she just returned from operating room she underwent exploratory laparotomy with sigmoid colectomy with end colostomy. Objective - Vital Signs Vital signs: Vital Signs Temp 96.9 F L 03/21/18 16:00 Pulse 101 H 03/21/18 16:00 Resp 30 H 03/21/18 16:00 BP 80/49 03/21/18 12:30 Pulse Ox 100 03/21/18 16:00 Intake & Output 03/20/18 03/21/18 03/21/18 18:59 06:59 18:59 Intake Total 3075 3850.095 Output Total 545 1120 Balance 2530 2730.095 Weight 62.324 kg 63.6 kg 63.6 kg Intake: IV 1875 3842.9 Dextrose 5% in Water 1, 225 000 ml @ 75 mls/hr IV . [id number] [facility] with Sodium Bicarb (1 Meq/ml) 150 ml Rx#:[id number] Piperacillin-Tazobactam 3 100 .375 gm In Dextrose/Water 1 50ml.bag @ 12.5 mls/hr IVPB Q8HR [facility] Rx#: [id number] Sodium Chloride 0.9% 1, 875 975 000 ml @ 125 mls/hr IV . Q8H [facility] Rx#:[id number] Sodium Chloride 0.9% 1, 1000 1010 000 ml @ 999 mls/hr IV . Q1H1M [facility] Rx#:[id number] flagyl 200 levophed 13.9 propofol 19.0 Intake, IV Titration 1200 7.195 Amount Azithromycin 500 mg In 250 Sodium Chloride 0.9% 250 ml @ 250 mls/hr IVPB ONCE STA Rx#:[id number] Norepinephrine 16 mg In 7.195 Sodium Chloride 0.9% 250 ml @ Titrate IV .Q0M [facility] Rx#:[id number] Piperacillin-Tazobactam 3 50 .375 gm In Dextrose/Water 1 50ml.bag @ 12.5 mls/hr IVPB Q8HR [facility] Rx#: [id number] Potassium Chloride 20 meq 100 In Water For Injection 1 100ml.bag @ 50 mls/hr IVPB Q2H [facility] Rx#: [id number] Sodium Chloride 0.9% 500 500 ml @ 999 mls/hr IV .Q31M [facility] Rx#:[id number] Vancomycin 1,250 mg In 250 Sodium Chloride 0.9% 250 ml @ 125 mls/hr IVPB ONCE ONE Rx#:[id number] cefTRIAXone 1,000 mg In 50 Sodium Chloride 0.9% 50 ml @ 100 mls/hr IVPB Q24HR [facility] Rx#:[id number] Output: Gastric Drainage 300 Urine 545 450 Estimated Blood Loss 100 Other 270 Other: Voiding Method Indwelling Catheter Indwelling Catheter # Voids 1 0 # Bowel Movements 0 1 ABP, PAP, CO, CI - Last Documented Arterial Blood Pressure 112/46 - Exam Patient is intubated sedated maintained on mechanical ventilation Head normocephalic and atraumatic Neck supple no JVD no goiter Lungs few coarse breath sounds noted at the bases Heart regular rate and rhythm S1-S2, no rub or gallop Abdomen is soft nontender nondistended positive bowel sounds no hepatosplenomegaly, patient had colostomy placement she has a J-tube drainage Extremities no edema no cyanosis or clubbing Neuro alert and orientated to [address] Patient currently at baseline. - Labs CBC & Chem 7: 03/21/18 04:15 03/21/18 16:12 Labs: Abnormal Lab Results - Last 24 Hours (Table) 03/20/18 03/20/18 03/20/18 Range/Units 10:52 17:12 17:12 WBC (3.8-10.6) k/uL Hgb (11.4-16.0) gm/dL Hct (34.0-46.0) % MCH (25.0-35.0) pg MCHC (31.0-37.0) g/dL Plt Count (150-450) k/uL Neutrophils # (Manual) (1.3-7.7) k/uL ABG pH (7.35-7.45) ABG pCO2 (35-45) mmHg ABG pO2 (83-108) mmHg ABG HCO3 (21-25) mmol/L ABG Total CO2 (19-24) mmol/L ABG O2 Saturation (94-97) % Sodium (137-145) mmol/L Potassium 3.1 L (3.5-5.1) mmol/L Chloride (98-107) mmol/L Carbon Dioxide (22-30) mmol/L BUN (7-17) mg/dL Creatinine (0.52-1.04) mg/dL Glucose (74-99) mg/dL POC Glucose (mg/dL) (75-99) mg/dL Plasma Lactic Acid Miguel A (0.7-2.0) mmol/L Calcium (8.4-10.2) mg/dL Magnesium (1.6-2.3) mg/dL Iron 11 L (50-170) ug/dL TIBC 184 L (228-460) ug/dL Iron Saturation 5.98 L (12.00-45.00) AST (14-36) U/L Total Creatine Kinase (30-135) U/L Troponin I 0.039 H* (0.000-0.034) ng/mL Total Protein (6.3-8.2) g/dL Albumin (3.5-5.0) g/dL 03/20/18 03/20/18 03/21/18 Range/Units 22:32 22:44 04:15 WBC 21.6 H (3.8-10.6) k/uL Hgb 10.2 L (11.4-16.0) gm/dL Hct 33.7 L (34.0-46.0) % MCH 24.3 L (25.0-35.0) pg MCHC 30.2 L (31.0-37.0) g/dL Plt Count 461 H (150-450) k/uL Neutrophils # (Manual) 21.10 H (1.3-7.7) k/uL ABG pH (7.35-7.45) ABG pCO2 (35-45) mmHg ABG pO2 (83-108) mmHg ABG HCO3 (21-25) mmol/L ABG Total CO2 (19-24) mmol/L ABG O2 Saturation (94-97) % Sodium (137-145) mmol/L Potassium (3.5-5.1) mmol/L Chloride (98-107) mmol/L Carbon Dioxide (22-30) mmol/L BUN (7-17) mg/dL Creatinine (0.52-1.04) mg/dL Glucose (74-99) mg/dL POC Glucose (mg/dL) 146 H (75-99) mg/dL Plasma Lactic Acid Miguel A (0.7-2.0) mmol/L Calcium (8.4-10.2) mg/dL Magnesium (1.6-2.3) mg/dL Iron (50-170) ug/dL TIBC (228-460) ug/dL Iron Saturation (12.00-45.00) AST (14-36) U/L Total Creatine Kinase 147 H (30-135) U/L Troponin I 0.044 H* (0.000-0.034) ng/mL Total Protein (6.3-8.2) g/dL Albumin (3.5-5.0) g/dL 03/21/18 03/21/18 03/21/18 Range/Units 04:15 04:15 12:06 WBC (3.8-10.6) k/uL Hgb (11.4-16.0) gm/dL Hct (34.0-46.0) % MCH (25.0-35.0) pg MCHC (31.0-37.0) g/dL Plt Count (150-450) k/uL Neutrophils # (Manual) (1.3-7.7) k/uL ABG pH (7.35-7.45) ABG pCO2 (35-45) mmHg ABG pO2 (83-108) mmHg ABG HCO3 (21-25) mmol/L ABG Total CO2 (19-24) mmol/L ABG O2 Saturation (94-97) % Sodium 147 H (137-145) mmol/L Potassium (3.5-5.1) mmol/L Chloride 119 H (98-107) mmol/L Carbon Dioxide 19 L (22-30) mmol/L BUN 64 H (7-17) mg/dL Creatinine 1.36 H (0.52-1.04) mg/dL Glucose 137 H (74-99) mg/dL POC Glucose (mg/dL) 189 H (75-99) mg/dL Plasma Lactic Acid Miguel A 2.7 H* (0.7-2.0) mmol/L Calcium 8.2 L (8.4-10.2) mg/dL Magnesium 2.6 H (1.6-2.3) mg/dL Iron (50-170) ug/dL TIBC (228-460) ug/dL Iron Saturation (12.00-45.00) AST 40 H (14-36) U/L Total Creatine Kinase (30-135) U/L Troponin I (0.000-0.034) ng/mL Total Protein 4.5 L (6.3-8.2) g/dL Albumin 2.0 L (3.5-5.0) g/dL 03/21/18 03/21/1818 Range/Units 12:48 15:22 16:54 WBC (3.8-10.6) k/uL Hgb (11.4-16.0) gm/dL Hct (34.0-46.0) % MCH (25.0-35.0) pg MCHC (31.0-37.0) g/dL Plt Count (150-450) k/uL Neutrophils # (Manual) (1.3-7.7) k/uL ABG pH 7.21 L (7.35-7.45) ABG pCO2 26 L (35-45) mmHg ABG pO2 322 H 138 H (83-108) mmHg ABG HCO3 17 L 17 L (21-25) mmol/L ABG Total CO2 18 L (19-24) mmol/L ABG O2 Saturation 99.7 H 99.2 H (94-97) % Sodium (137-145) mmol/L Potassium (3.5-5.1) mmol/L Chloride (98-107) mmol/L Carbon Dioxide (22-30) mmol/L BUN (7-17) mg/dL Creatinine (0.52-1.04) mg/dL Glucose (74-99) mg/dL POC Glucose (mg/dL) 181 H (75-99) mg/dL Plasma Lactic Acid Miguel A (0.7-2.0) mmol/L Calcium (8.4-10.2) mg/dL Magnesium (1.6-2.3) mg/dL Iron (50-170) ug/dL TIBC (228-460) ug/dL Iron Saturation (12.00-45.00) AST (14-36) U/L Total Creatine Kinase (30-135) U/L Troponin I (0.000-0.034) ng/mL Total Protein (6.3-8.2) g/dL Albumin (3.5-5.0) g/dL Microbiology - Last 24 Hours (Table) 03/21/18 11:15 Wound Culture - Preliminary Abdomen 03/21/18 11:15 Wound Culture - Preliminary Abdomen 03/21/18 11:15 Anaerobic Culture - Preliminary Abdomen 03/21/18 11:15 Anaerobic Culture - Preliminary Abdomen 03/20/18 10:52 Blood Culture Gram Stain - Preliminary Blood 03/20/18 10:52 Blood Culture - Final Blood 03/20/18 10:37 Urine Culture - Preliminary Urine,Clean Catch Gram Neg Bacilli Assessment and Plan Plan: 1. Altered mental status changes likely due to metabolic encephalopathy related to infectious processes from pneumonia and UTI and acute kidney injury. Computed tomography scan shows no acute changes 2. Possible pneumonia noted on chest x-ray. Patient does admit to a cough. We 'll continue Rocephin. Azithromycin discontinued due to its interaction with the Risperdal 3. UTI: Continue antibiotics. Check urine culture 4. Acute kidney injury: Likely secondary to dehydration from diuretics and diarrhea. Also a Hold hydrochlorothiazide. Continue with IV fluids. She received a bolus in the ER. Continue normal saline at 75 mL an hour. 5. Diarrhea now resolved. Her family patient having multiple loose stools daily for the last 3 weeks. Last bowel movement 2 days 6. Hypokalemia: Patient received potassium supplement 7. Anemia: Check iron studies. Check stool for occult blood. Patient reports no acute 8. Elevated troponin likely related to her acute kidney injury. Continue to monitor cardiac enzymes. Patient reports no chest pain. EKG showing sinus tachycardia with a heart rate of 104 with PVCs 9. Severe protein calorie malnutrition: Albumin 2.1. Add ensure 3 times a day with meals 10. History of rheumatoid arthritis 11. History of COPD. Stable 12. Hypothyroidism continue Synthroid. Check thyroid level 13. Sinus tachycardia likely related to dehydration. Continue IV fluids. 14. Sepsis with tachycardia and leukocytosis. Continue antibiotics and IV fluids. Lactic acid level normal. check blood culture and urine culture 15. Complex mass in the pelvis related to the sigmoid colon patient underwent surgery with Dr. Hernandez with partial colectomy and colostomy placement GI prophylaxis Pepcid and DVT prophylaxis subcu
[2018-03-21] MEDS: INSULIN ASPART 100 UNIT/ML 1 ML 10 ML VIAL SQ SCH ×2 (17:22→23:22)
[2018-03-21] MEDS ORDERED: FUROSEMIDE 10 MG/ML 10 ML VIAL IV STA (17:22)
[2018-03-21] MEDS: HYDROmorphone 1 MG/ML 1 ML SYRINGE IVP PRN (20:57)
[2018-03-21 23:21] LABS: Glucose,Whole Blood 189 mg/dL (75-99)
[2018-03-22] MEDS: SODIUM CHLORIDE 0.9% 1,000 ML IV SCH ×3 (02:30→23:24)
[2018-03-22] MEDS: PROPOFOL 1,000 MG in EMPTY BAG 1 BAG IV SCH ×2 (05:02→13:24)
[2018-03-22] MEDS: DEXTROSE 5% IN WATER 1,000 ML with SODIUM BICARB (1 MEQ/ML) 150 ML IV SCH (05:08)
[2018-03-22 05:14] LABS: Basophils % (A) 0 %; Eosinophils % (A) 0 %; HCT 27.6 % (34.0-46.0); Hypochromasia Marked; Lymphocytes # (A) 0.4 k/uL (1.0-4.8); Lymphocytes % (A) 2 %; MCH 24.1 pg (25.0-35.0); MCHC 29.7 g/dL (31.0-37.0); MCV 81.4 fL (80.0-100.0); Mean Platelet Volume 7.9; Monocytes # (A) 0.3 k/uL (0-1.0); Monocytes % (A) 1 %; Neutrophils # (A) 21.8 k/uL (1.3-7.7); Neutrophils % (A) 96 %; Platelet Count 307 k/uL (150-450); RBC 3.39 m/uL (3.80-5.40); RDW 15.4 % (11.5-15.5); WBC 22.6 k/uL (3.8-10.6)
[2018-03-22 05:23] LABS: Phosphorus 3.1 mg/dL (2.5-4.5); Potassium 3.1 mmol/L (3.5-5.1)
[2018-03-22 05:34] LABS: HGB 8.2 gm/dL (11.4-16.0)
[2018-03-22 06:05] LABS: Glucose,Whole Blood 178 mg/dL (75-99)
[2018-03-22] MEDS: POTASSIUM CHLORIDE 20 MEQ in WATER FOR INJECTION 1 100ML.BAG IVPB SCH ×2 (06:08→08:28)
[2018-03-22] MEDS: INSULIN ASPART 100 UNIT/ML 1 ML 10 ML VIAL SQ SCH ×3 (06:14→17:31)
--- NOTE | 2018-03-22 06:44 | XR ---
EXAMINATION TYPE: XR chest 1V DATE OF EXAM: 03/22/2018 HISTORY: RLL infiltrates, compare with recent exam. REFERENCE: Previous study dated 03/21/2018. FINDINGS: The patient is NG tube is been reconstructed is now in good position with its tip 3.4 cm ab ove the teetee. An NG tube and right internal jugular sheath remain in place. There is left basilar airspace disease. There is some right sided platelike atelectasis. There is a s mall left effusion. Overall aeration has improved. IMPRESSION: SLIGHT IMPROVED AERATION OF THE LEFT LUNG.
[2018-03-22 07:31] LABS: ABG Base Excess -0.5 mmol/L; ABG HCO3 23 mmol/L (21-25); ABG Oxygen Saturation 98.7 % (94-97); ABG PCO2 33 mmHg (35-45); ABG PH 7.46 (7.35-7.45); ABG PO2 111 mmHg (83-108); ABG TCO2 24 mmol/L (19-24)
[2018-03-22] MEDS ORDERED: SODIUM CHLORIDE 0.9% 1,000 ML IV ONE (08:19)
[2018-03-22] MEDS: metroNIDAZOLE-NS PMX 500 MG in SALINE 1 100ML.BAG IVPB SCH ×3 (08:23→23:22)
[2018-03-22] MEDS: PIPERACILLIN-TAZOBACTAM 3.375 GM in DEXTROSE/WATER 1 50ML.BAG IVPB SCH ×3 (08:42→23:25)
[2018-03-22] MEDS: CHLORHEXIDINE GLUCONATE 15 ML CUP MUCOUS MEM SCH ×2 (08:42→21:20)
[2018-03-22] MEDS: LEVOTHYROXINE IVP 100 MCG/5 ML VIAL IV SCH (08:42)
[2018-03-22] MEDS: HEPARIN SODIUM,PORCINE 5,000 UNIT/ML 1 ML VIAL SQ SCH ×2 (08:43→21:20)
[2018-03-22] MEDS: PANTOPRAZOLE 40 MG/10 ML VIAL IVP SCH (08:43)
[2018-03-22] MEDS: NOREPINEPHRINE 16 MG in SODIUM CHLORIDE 0.9% 250 ML IV SCH (08:51)
[2018-03-22] MEDS ORDERED: VANCOMYCIN TROUGH DUE 1 EACH MISC MISCELLANE ONE (10:00)
[2018-03-22] MEDS: VANCOMYCIN 1,000 MG in SODIUM CHLORIDE 0.9% 250 ML IVPB SCH (10:38)
--- NOTE | 2018-03-22 11:41 | P.PN ---
Subjective Progress Note Date: 03/22/18 Principal diagnosis: Obstructing colon cancer with perforation Patient's postoperative day 1 from exploratory laparotomy with colostomy and sigmoid colectomy. Objective - Vital Signs Vital signs: Vital Signs Temp 99.1 F 03/22/18 08:00 Pulse 99 03/22/18 11:00 Resp 21 03/22/18 11:00 BP 103/54 03/22/18 11:00 Pulse Ox 100 03/22/18 11:00 Intake & Output 03/21/18 03/22/18 03/22/18 18:59 06:59 18:59 Intake Total 4179.338 3315.975 3315.813 Output Total 1315 770 275 Balance 2864.338 2545.975 3040.813 Weight 63.6 kg 71.5 kg Intake: IV 4169.3 3083 3265 Dextrose 5% in Water 1, 375 825 150 000 ml @ 75 mls/hr IV . [id number] [facility] with Sodium Bicarb (1 Meq/ml) 150 ml Rx#:[id number] Piperacillin-Tazobactam 3 100 50 50 .375 gm In Dextrose/Water 1 50ml.bag @ 12.5 mls/hr IVPB Q8HR [facility] Rx#: [id number] Potassium Chloride 10 meq 100 In Water For Injection 1 100ml.bag @ 100 mls/hr IVPB Q1H [facility] Rx#: [id number] Sodium Chloride 0.9% 1, 1125 000 ml @ 125 mls/hr IV . Q8H [facility] Rx#:[id number] Sodium Chloride 0.9% 1, 825 600 000 ml @ 150 mls/hr IV . Q6H40M [facility] Rx#:[id number] Sodium Chloride 0.9% 1, 150 000 ml @ 75 mls/hr IV . [id number] [facility] Rx#:[id number] Sodium Chloride 0.9% 1, 1010 000 ml @ 999 mls/hr IV . Q1H1M [facility] Rx#:[id number] Sodium Chloride 0.9% 1, 1000 2000 000 ml @ 999 mls/hr IV . Q1H1M [facility] Rx#:[id number] Vancomycin 1,000 mg In 250 Sodium Chloride 0.9% 250 ml @ 125 mls/hr IVPB Q24H [facility] Rx#:[id number] flagyl 200 levophed 32.7 metroNIDAZOLE-NS PMX 500 100 200 mg In Saline 1 100ml.bag @ 100 mls/hr IVPB Q8HR [facility] Rx#:[id number] pressure bag 33 15 propofol 26.6 Intake, IV Titration 10.038 232.975 50.813 Amount Norepinephrine 16 mg In 10.038 153.460 50.813 Sodium Chloride 0.9% 250 ml @ Titrate IV .Q0M [facility] Rx#:[id number] Propofol 1,000 mg In 79.515 Empty Bag 1 bag @ Titrate IV .Q0M [facility] Rx#: [id number] Output: Gastric Drainage 325 40 Drainage 110 40 Abdomen 110 40 Urine 570 640 195 Estimated Blood Loss 100 Other 320 20 Other: Voiding Method Indwelling Catheter Indwelling Catheter Indwelling Catheter # Bowel Movements 1 ABP, PAP, CO, CI - Last Documented Arterial Blood Pressure 87/61 - Constitutional Constitutional Comment(s): Patient is intubated - Gastrointestinal Gastrointestinal Comment(s): Abdomen soft. Colostomy is pink. There is stool colostomy bag. - Labs CBC & Chem 7: 03/22/18 04:56 03/22/18 04:56 Labs: Abnormal Lab Results - Last 24 Hours (Table) 03/21/18 03/21/18 03/21/18 Range/Units 12:06 12:48 15:22 WBC (3.8-10.6) k/uL RBC (3.80-5.40) m/uL Hgb (11.4-16.0) gm/dL Hct (34.0-46.0) % MCH (25.0-35.0) pg MCHC (31.0-37.0) g/dL Neutrophils # (1.3-7.7) k/uL Lymphocytes # (1.0-4.8) k/uL ABG pH 7.21 L (7.35-7.45) ABG pCO2 26 L (35-45) mmHg ABG pO2 322 H 138 H (83-108) mmHg ABG HCO3 17 L 17 L (21-25) mmol/L ABG Total CO2 18 L (19-24) mmol/L ABG O2 Saturation 99.7 H 99.2 H (94-97) % Sodium (137-145) mmol/L Potassium (3.5-5.1) mmol/L Chloride (98-107) mmol/L BUN (7-17) mg/dL Creatinine (0.52-1.04) mg/dL Glucose (74-99) mg/dL POC Glucose (mg/dL) 189 H (75-99) mg/dL Calcium (8.4-10.2) mg/dL 03/21/18 03/21/18 03/22/18 Range/Units 16:54 23:19 04:56 WBC (3.8-10.6) k/uL RBC (3.80-5.40) m/uL Hgb (11.4-16.0) gm/dL Hct (34.0-46.0) % MCH (25.0-35.0) pg MCHC (31.0-37.0) g/dL Neutrophils # (1.3-7.7) k/uL Lymphocytes # (1.0-4.8) k/uL ABG pH (7.35-7.45) ABG pCO2 (35-45) mmHg ABG pO2 (83-108) mmHg ABG HCO3 (21-25) mmol/L ABG Total CO2 (19-24) mmol/L ABG O2 Saturation (94-97) % Sodium 147 H (137-145) mmol/L Potassium 3.1 L (3.5-5.1) mmol/L Chloride 119 H (98-107) mmol/L BUN 55 H (7-17) mg/dL Creatinine 1.57 H (0.52-1.04) mg/dL Glucose 175 H (74-99) mg/dL POC Glucose (mg/dL) 181 H 189 H (75-99) mg/dL Calcium 7.0 L (8.4-10.2) mg/dL 03/22/18 03/22/18 03/22/18 Range/Units 04:56 06:03 07:29 WBC 22.6 H (3.8-10.6) k/uL RBC 3.39 L (3.80-5.40) m/uL Hgb 8.2 L D (11.4-16.0) gm/dL Hct 27.6 L (34.0-46.0) % MCH 24.1 L (25.0-35.0) pg MCHC 29.7 L (31.0-37.0) g/dL Neutrophils # 21.8 H (1.3-7.7) k/uL Lymphocytes # 0.4 L (1.0-4.8) k/uL ABG pH 7.46 H (7.35-7.45) ABG pCO2 33 L (35-45) mmHg ABG pO2 111 H (83-108) mmHg ABG HCO3 (21-25) mmol/L ABG Total CO2 (19-24) mmol/L ABG O2 Saturation 98.7 H (94-97) % Sodium (137-145) mmol/L Potassium (3.5-5.1) mmol/L Chloride (98-107) mmol/L BUN (7-17) mg/dL Creatinine (0.52-1.04) mg/dL Glucose (74-99) mg/dL POC Glucose (mg/dL) 178 H (75-99) mg/dL Calcium (8.4-10.2) mg/dL Microbiology - Last 24 Hours (Table) 03/21/18 11:15 Gram Stain - Preliminary Abdomen Wound Culture - Preliminary Gram Neg Bacilli Gram Neg Bacilli#2 03/21/18 11:15 Gram Stain - Preliminary Abdomen Wound Culture - Preliminary Gram Neg Bacilli Gram Neg Bacilli#2 03/21/18 19:45 Gram Stain - Preliminary Sputum Sputum Culture - Preliminary 03/20/18 10:52 Blood Culture Gram Stain - Preliminary Blood Blood Culture - Preliminary Pseudomonas spec 03/21/18 11:15 Anaerobic Culture - Preliminary Abdomen 03/21/18 11:15 Anaerobic Culture - Preliminary Abdomen 03/20/18 10:52 Blood Culture - Final Blood 03/20/18 10:37 Urine Culture - Preliminary Urine,Clean Catch Gram Neg Bacilli Assessment and Plan Plan: Status post exploratory laparotomy with sigmoid colon resection and end colostomy for obstructing colon mass. The patient will remain on the ventilator today. Her condition is quite guarded.
[2018-03-22 11:59] LABS: Glucose,Whole Blood 129 mg/dL (75-99)
--- NOTE | 2018-03-22 12:30 | P.PN ---
Subjective Progress Note Date: 03/22/18 Principal diagnosis: acute surgical abdomen secondary to perforated rectosigmoid. Postoperative day #1 This is an 87-year-old female admitted on 03/20/2018, her chief complaint according to the family was altered mental status and level of consciousness. Apparently there has been a decline in mental status over the last few days. Upon EMS arrival the patient was noted to be hypotensive and tachycardic. She had no complaints of pain. The patient herself is a very poor historian obviously she has some history of underlying dementia. Workup in the ER showed a definite leukocytosis, abnormal electrolytes with elevated sodium and low potassium, acute kidney injury with BUN of 74 creatinine of 1.97, and borderline elevated lactic acid. The other concern about this patient was the fact that she did not have bowel movement for few days. A week earlier, the patient was complaining of diarrhea. She was seen by infectious disease on consultation, and a CT of the abdomen and pelvis was recommended with oral contrast. In the meantime patient received Zosyn and vancomycin. CT of the abdomen came back abnormal showing pneumoperitoneum, complex mass in the lower anterior abdomen was felt to be possibly an intraperitoneal abscess. Hence surgery was consulted, patient was transferred to the ICU last night, given more fluids, kept on antibiotics, and initially there was a bit of a concern whether the family was agreeable to surgery. The surgeon recommended reevaluation this morning, and I was notified about this patient last night. I did recommend immediate surgical intervention, however patient needed to be optimized in the ICU, and obviously she is going to surgery today by Dr. Hernandez. The patient herself is again a very poor historian, denies any specific complaints, she is confused, however her abdomen is tender to palpation , and slightly rigid. Patient was reevaluated today on 03/21/2018, she underwent exploratory laparotomy , sigmoid colectomy and end colostomy and partial omentectomy repair of incisional hernia, left salpingectomy washout of peritoneal cavity and she is now postoperative day #1. Patient came back after surgery on mechanical ventilation, she was hypotensive, requiring fluid boluses, and she is now on norepinephrine drip still receiving multiple fluid boluses. Yesterday I even place the patient on a bicarb drip, and considering her acidosis has corrected nicely over the last 24 hours, the sodium bicarb was discontinued.ventilator settings were noted, she is now on assist control rate of 12, FiO2 at 40%, PEEP of 5 and tidal volume of 400.ABG showed a pO2 of 111 pCO2 of 33 pH of 7.46, hence I cut down to 35% FiO2.CBC showed leukocytosis with WBC count of 22.6, hemoglobin is 8.2. Sodium is a bit elevated at 147 potassium is 3.1 chloride is 119. Sodium bicarb was discontinued, and now she is on lactated Ringer's at 100 mL per hour. Her BUN is 55 creatinine is 1.57her initial creatinine on presentation was 1.97.chest x-ray showed significant improvement in left lower lobe aeration. She does have some right sided platelike atelectasis and there is evidence of small tiny left pleural effusion. Objective - Vital Signs Vital signs: Vital Signs Temp 98.8 F 03/22/18 12:00 Pulse 97 03/22/18 12:00 Resp 21 03/22/18 12:00 BP 103/54 03/22/18 12:00 Pulse Ox 100 03/22/18 12:00 Intake & Output 03/21/18 03/22/18 03/22/18 18:59 06:59 18:59 Intake Total 4179.338 3315.975 3468.813 Output Total 1315 770 307 Balance 2864.338 2545.975 3161.813 Weight 63.6 kg 71.5 kg Intake: IV 4169.3 3083 3418 Dextrose 5% in Water 1, 375 825 150 000 ml @ 75 mls/hr IV . [id number] [facility] with Sodium Bicarb (1 Meq/ml) 150 ml Rx#:[id number] Piperacillin-Tazobactam 3 100 50 50 .375 gm In Dextrose/Water 1 50ml.bag @ 12.5 mls/hr IVPB Q8HR [facility] Rx#: [id number] Potassium Chloride 10 meq 100 In Water For Injection 1 100ml.bag @ 100 mls/hr IVPB Q1H [facility] Rx#: [id number] Sodium Chloride 0.9% 1, 1125 000 ml @ 125 mls/hr IV . Q8H [facility] Rx#:[id number] Sodium Chloride 0.9% 1, 825 750 000 ml @ 150 mls/hr IV . Q6H40M [facility] Rx#:[id number] Sodium Chloride 0.9% 1, 150 000 ml @ 75 mls/hr IV . [id number] [facility] Rx#:[id number] Sodium Chloride 0.9% 1, 1010 000 ml @ 999 mls/hr IV . Q1H1M [facility] Rx#:[id number] Sodium Chloride 0.9% 1, 1000 2000 000 ml @ 999 mls/hr IV . Q1H1M [facility] Rx#:[id number] Vancomycin 1,000 mg In 250 Sodium Chloride 0.9% 250 ml @ 125 mls/hr IVPB Q24H [facility] Rx#:[id number] flagyl 200 levophed 32.7 metroNIDAZOLE-NS PMX 500 100 200 mg In Saline 1 100ml.bag @ 100 mls/hr IVPB Q8HR [facility] Rx#:[id number] pressure bag 33 18 propofol 26.6 Intake, IV Titration 10.038 232.975 50.813 Amount Norepinephrine 16 mg In 10.038 153.460 50.813 Sodium Chloride 0.9% 250 ml @ Titrate IV .Q0M [facility] Rx#:[id number] Propofol 1,000 mg In 79.515 Empty Bag 1 bag @ Titrate IV .Q0M [facility] Rx#: [id number] Output: Gastric Drainage 325 40 Drainage 110 40 Abdomen 110 40 Urine 570 640 227 Estimated Blood Loss 100 Other 320 20 Other: Voiding Method Indwelling Catheter Indwelling Catheter Indwelling Catheter # Bowel Movements 1 ABP, PAP, CO, CI - Last Documented Arterial Blood Pressure 87/61 - Exam Physical Exam: Revealed a 87-year-old female, sedated, on propofol, on mechanical ventilation, in no distress. Head: Atraumatic, normocephalic, tubes including endotracheal tube and nasogastric tube are intact. HEENT:[Neck is supple.] [No neck masses.] [No thyromegaly.] [No JVD.] Chest: [diminished breath sounds with minimal crackles, no rhonchi, no wheezes. Cardiac Exam: [Normal S1 and S2, no S3 gallop, no murmur.] Abdomen: [Soft, nontender, no megaly, no rebound, no guarding, functional colostomy was noted, J-tube drainage noted. Extremities: [No clubbing, no edema, no cyanosis.] Neurological Exam: [cannot be assessed, patient is sedated on propofol drip. Lymphatics: No lymphadenopathy. Psychiatric: Cannot be assessed. - Labs CBC & Chem 7: 03/22/18 04:56 03/22/18 04:56 Labs: Abnormal Lab Results - Last 24 Hours (Table) 03/21/18 03/21/18 03/21/18 Range/Units 12:48 15:22 16:54 WBC (3.8-10.6) k/uL RBC (3.80-5.40) m/uL Hgb (11.4-16.0) gm/dL Hct (34.0-46.0) % MCH (25.0-35.0) pg MCHC (31.0-37.0) g/dL Neutrophils # (1.3-7.7) k/uL Lymphocytes # (1.0-4.8) k/uL ABG pH 7.21 L (7.35-7.45) ABG pCO2 26 L (35-45) mmHg ABG pO2 322 H 138 H (83-108) mmHg ABG HCO3 17 L 17 L (21-25) mmol/L ABG Total CO2 18 L (19-24) mmol/L ABG O2 Saturation 99.7 H 99.2 H (94-97) % Sodium (137-145) mmol/L Potassium (3.5-5.1) mmol/L Chloride (98-107) mmol/L BUN (7-17) mg/dL Creatinine (0.52-1.04) mg/dL Glucose (74-99) mg/dL POC Glucose (mg/dL) 181 H (75-99) mg/dL Calcium (8.4-10.2) mg/dL 03/21/18 03/22/18 03/22/18 Range/Units 23:19 04:56 04:56 WBC 22.6 H (3.8-10.6) k/uL RBC 3.39 L (3.80-5.40) m/uL Hgb 8.2 L D (11.4-16.0) gm/dL Hct 27.6 L (34.0-46.0) % MCH 24.1 L (25.0-35.0) pg MCHC 29.7 L (31.0-37.0) g/dL Neutrophils # 21.8 H (1.3-7.7) k/uL Lymphocytes # 0.4 L (1.0-4.8) k/uL ABG pH (7.35-7.45) ABG pCO2 (35-45) mmHg ABG pO2 (83-108) mmHg ABG HCO3 (21-25) mmol/L ABG Total CO2 (19-24) mmol/L ABG O2 Saturation (94-97) % Sodium 147 H (137-145) mmol/L Potassium 3.1 L (3.5-5.1) mmol/L Chloride 119 H (98-107) mmol/L BUN 55 H (7-17) mg/dL Creatinine 1.57 H (0.52-1.04) mg/dL Glucose 175 H (74-99) mg/dL POC Glucose (mg/dL) 189 H (75-99) mg/dL Calcium 7.0 L (8.4-10.2) mg/dL 03/22/18 03/22/18 03/22/18 Range/Units 06:03 07:29 11:58 WBC (3.8-10.6) k/uL RBC (3.80-5.40) m/uL Hgb (11.4-16.0) gm/dL Hct (34.0-46.0) % MCH (25.0-35.0) pg MCHC (31.0-37.0) g/dL Neutrophils # (1.3-7.7) k/uL Lymphocytes # (1.0-4.8) k/uL ABG pH 7.46 H (7.35-7.45) ABG pCO2 33 L (35-45) mmHg ABG pO2 111 H (83-108) mmHg ABG HCO3 (21-25) mmol/L ABG Total CO2 (19-24) mmol/L ABG O2 Saturation 98.7 H (94-97) % Sodium (137-145) mmol/L Potassium (3.5-5.1) mmol/L Chloride (98-107) mmol/L BUN (7-17) mg/dL Creatinine (0.52-1.04) mg/dL Glucose (74-99) mg/dL POC Glucose (mg/dL) 178 H 129 H (75-99) mg/dL Calcium (8.4-10.2) mg/dL Microbiology - Last 24 Hours (Table) 03/21/18 11:15 Gram Stain - Preliminary Abdomen Wound Culture - Preliminary Gram Neg Bacilli Gram Neg Bacilli#2 03/21/18 11:15 Gram Stain - Preliminary Abdomen Wound Culture - Preliminary Gram Neg Bacilli Gram Neg Bacilli#2 03/21/18 19:45 Gram Stain - Preliminary Sputum Sputum Culture - Preliminary 03/20/18 10:52 Blood Culture Gram Stain - Preliminary Blood Blood Culture - Preliminary Pseudomonas spec 03/21/18 11:15 Anaerobic Culture - Preliminary Abdomen 03/21/18 11:15 Anaerobic Culture - Preliminary Abdomen 03/20/18 10:52 Blood Culture - Final Blood 03/20/18 10:37 Urine Culture - Preliminary Urine,Clean Catch Gram Neg Bacilli Assessment and Plan Assessment: impression: 1: Status post sigmoid colectomy and end colostomy, partial omentectomy, repair of incisional hernia, left salpingectomy, washout of peritoneal cavity, postoperative day #1. 2acute pneumoperitoneum on presentation secondary to perforated rectosigmoid. 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 5 multiple comorbidities including rheumatoid arthritis, hypothyroidism, and hypertension as well as some component of dementia. Recommendation: Continue fluids, antibiotics, pressors and titrate accordingly, GI and DVT prophylaxis, mechanical ventilation, hemodynamic support, nutritional support/TPN, monitor closely her labs including renal functioning, and electrolytes. Had a discussion with her daughter in law at bedside, updated the patient on her condition, patient remains DO NOT RESUSCITATE, however will continue supportive care measures, and if she deteriorates or if we extubate and she fails, patient is not to be reintubated. We'll continue to follow. Critical care time is 40 minutes. Time with Patient: Greater than 30
--- NOTE | 2018-03-22 13:45 | P.PN ---
Subjective Progress Note Date: 03/22/18 This is a 87-year-old female, patient of Dr. Solares. She has a known past medical history of hypothyroidism, hyperlipidemia, rheumatoid arthritis and COPD. Patient is still smoking she is working on quitting she's down to 3 cigarettes a day. Patient presents to the emergency room via EMS due to altered mental status changes. Family is now at bedside. Jvhpxrvh-bu-qtd reports that her jcnlnv-pr-fid has been more confused over the last couple a days. Prior to that she was having diarrhea for the past 3 weeks. They treated this at home with yogurt. Patient had been 2 days without a stool. Patient does report cough that is productive. She was found have evidence of pneumonia and UTI. Has been started on Rocephin and azithromycin in the ER. Also evidence of acute kidney injury creatinine elevated at 1.97. Diuretics have been placed on hold she's getting IV fluids. White count elevated at 19 hemoglobin down at 9.8 platelets 528 potassium 2.7 troponin elevated 0.055 possibly related to her acute kidney injury. Chest x-ray showing pulmonary venous Congestion and basilar atelectasis or infiltrate. Computed tomography scan of the brain showed no acute changes. EKG had shown sinus tachycardia with a heart rate of 104 with PVCs right bundle branch block and left anterior fascicular block. EMS had reported patient to be tachycardic and hypotensive. Blood pressures are now stable. Again note that the hydrochlorothiazide has been placed on hold. Discontinued the azithromycin due to its interaction with the Risperdal which she takes in the evening. At this time we'll continue with Rocephin. Patient denies any chest pain or shortness of breath. Denies any nausea or vomiting. Bowel movements have improved. Denies any burning with urination or frequency or urgency. Patient does live with rrhieegc-aa-zzw at home. Baseline mentation is usually alert and orientated to name and place. On 03/21/2018 patient was seen and examined in the intensive care unit she is intubated sedated maintained on mechanical ventilation she is maintained on IV pressors she just returned from operating room she underwent exploratory laparotomy with sigmoid colectomy with end colostomy. On 03/22/2018 patient seen and examined in intensive care unit she remains intubated sedated and maintained on mechanical ventilation her urine output is marginal, white blood count is 22.6 hemoglobin 8.2 Objective - Vital Signs Vital signs: Vital Signs Temp 98.8 F 03/22/18 12:00 Pulse 105 H 03/22/18 13:00 Resp 21 03/22/18 13:00 BP 107/55 03/22/18 13:00 Pulse Ox 100 03/22/18 13:00 Intake & Output 03/21/18 03/22/18 03/22/18 18:59 06:59 18:59 Intake Total 4179.338 3315.975 3718.608 Output Total 1315 770 337 Balance 2864.338 2545.975 3381.608 Weight 63.6 kg 71.5 kg Intake: IV 4169.3 3083 3571 Dextrose 5% in Water 1, 375 825 150 000 ml @ 75 mls/hr IV . [id number] [facility] with Sodium Bicarb (1 Meq/ml) 150 ml Rx#:[id number] Piperacillin-Tazobactam 3 100 50 50 .375 gm In Dextrose/Water 1 50ml.bag @ 12.5 mls/hr IVPB Q8HR [facility] Rx#: [id number] Potassium Chloride 10 meq 100 In Water For Injection 1 100ml.bag @ 100 mls/hr IVPB Q1H [facility] Rx#: [id number] Sodium Chloride 0.9% 1, 1125 000 ml @ 125 mls/hr IV . Q8H [facility] Rx#:[id number] Sodium Chloride 0.9% 1, 825 900 000 ml @ 150 mls/hr IV . Q6H40M [facility] Rx#:[id number] Sodium Chloride 0.9% 1, 150 000 ml @ 75 mls/hr IV . [id number] [facility] Rx#:[id number] Sodium Chloride 0.9% 1, 1010 000 ml @ 999 mls/hr IV . Q1H1M [facility] Rx#:[id number] Sodium Chloride 0.9% 1, 1000 2000 000 ml @ 999 mls/hr IV . Q1H1M [facility] Rx#:[id number] Vancomycin 1,000 mg In 250 Sodium Chloride 0.9% 250 ml @ 125 mls/hr IVPB Q24H [facility] Rx#:[id number] flagyl 200 levophed 32.7 metroNIDAZOLE-NS PMX 500 100 200 mg In Saline 1 100ml.bag @ 100 mls/hr IVPB Q8HR [facility] Rx#:[id number] pressure bag 33 21 propofol 26.6 Intake, IV Titration 10.038 232.975 147.608 Amount Norepinephrine 16 mg In 10.038 153.460 99.751 Sodium Chloride 0.9% 250 ml @ Titrate IV .Q0M [facility] Rx#:[id number] Propofol 1,000 mg In 79.515 47.857 Empty Bag 1 bag @ Titrate IV .Q0M [facility] Rx#: [id number] Output: Gastric Drainage 325 40 Drainage 110 40 Abdomen 110 40 Urine 570 640 257 Estimated Blood Loss 100 Other 320 20 Other: Voiding Method Indwelling Catheter Indwelling Catheter Indwelling Catheter # Bowel Movements 1 ABP, PAP, CO, CI - Last Documented Arterial Blood Pressure 87/61 - Exam Patient is intubated sedated maintained on mechanical ventilation Head normocephalic and atraumatic Neck supple no JVD no goiter Lungs few coarse breath sounds noted at the bases Heart regular rate and rhythm S1-S2, no rub or gallop Abdomen is soft nontender nondistended positive bowel sounds no hepatosplenomegaly, patient had colostomy placement she has a J-tube drainage Extremities no edema no cyanosis or clubbing Neuro alert and orientated to [address] Patient currently at baseline. - Labs CBC & Chem 7: 03/22/18 04:56 03/22/18 04:56 Labs: Abnormal Lab Results - Last 24 Hours (Table) 03/21/18 03/21/18 03/21/18 Range/Units 15:22 16:54 23:19 WBC (3.8-10.6) k/uL RBC (3.80-5.40) m/uL Hgb (11.4-16.0) gm/dL Hct (34.0-46.0) % MCH (25.0-35.0) pg MCHC (31.0-37.0) g/dL Neutrophils # (1.3-7.7) k/uL Lymphocytes # (1.0-4.8) k/uL ABG pH (7.35-7.45) ABG pCO2 26 L (35-45) mmHg ABG pO2 138 H (83-108) mmHg ABG HCO3 17 L (21-25) mmol/L ABG Total CO2 18 L (19-24) mmol/L ABG O2 Saturation 99.2 H (94-97) % Sodium (137-145) mmol/L Potassium (3.5-5.1) mmol/L Chloride (98-107) mmol/L BUN (7-17) mg/dL Creatinine (0.52-1.04) mg/dL Glucose (74-99) mg/dL POC Glucose (mg/dL) 181 H 189 H (75-99) mg/dL Calcium (8.4-10.2) mg/dL 03/22/18 03/22/18 03/22/18 Range/Units 04:56 04:56 06:03 WBC 22.6 H (3.8-10.6) k/uL RBC 3.39 L (3.80-5.40) m/uL Hgb 8.2 L D (11.4-16.0) gm/dL Hct 27.6 L (34.0-46.0) % MCH 24.1 L (25.0-35.0) pg MCHC 29.7 L (31.0-37.0) g/dL Neutrophils # 21.8 H (1.3-7.7) k/uL Lymphocytes # 0.4 L (1.0-4.8) k/uL ABG pH (7.35-7.45) ABG pCO2 (35-45) mmHg ABG pO2 (83-108) mmHg ABG HCO3 (21-25) mmol/L ABG Total CO2 (19-24) mmol/L ABG O2 Saturation (94-97) % Sodium 147 H (137-145) mmol/L Potassium 3.1 L (3.5-5.1) mmol/L Chloride 119 H (98-107) mmol/L BUN 55 H (7-17) mg/dL Creatinine 1.57 H (0.52-1.04) mg/dL Glucose 175 H (74-99) mg/dL POC Glucose (mg/dL) 178 H (75-99) mg/dL Calcium 7.0 L (8.4-10.2) mg/dL 18 03/22/18 Range/Units 07:29 11:58 WBC (3.8-10.6) k/uL RBC (3.80-5.40) m/uL Hgb (11.4-16.0) gm/dL Hct (34.0-46.0) % MCH (25.0-35.0) pg MCHC (31.0-37.0) g/dL Neutrophils # (1.3-7.7) k/uL Lymphocytes # (1.0-4.8) k/uL ABG pH 7.46 H (7.35-7.45) ABG pCO2 33 L (35-45) mmHg ABG pO2 111 H (83-108) mmHg ABG HCO3 (21-25) mmol/L ABG Total CO2 (19-24) mmol/L ABG O2 Saturation 98.7 H (94-97) % Sodium (137-145) mmol/L Potassium (3.5-5.1) mmol/L Chloride (98-107) mmol/L BUN (7-17) mg/dL Creatinine (0.52-1.04) mg/dL Glucose (74-99) mg/dL POC Glucose (mg/dL) 129 H (75-99) mg/dL Calcium (8.4-10.2) mg/dL Microbiology - Last 24 Hours (Table) 03/21/18 19:45 Gram Stain - Preliminary Sputum Sputum Culture - Preliminary Lina albicans 03/21/18 11:15 Gram Stain - Preliminary Abdomen Wound Culture - Preliminary Gram Neg Bacilli Gram Neg Bacilli#2 03/21/18 11:15 Gram Stain - Preliminary Abdomen Wound Culture - Preliminary Gram Neg Bacilli Gram Neg Bacilli#2 03/20/18 10:52 Blood Culture Gram Stain - Preliminary Blood Blood Culture - Preliminary Pseudomonas spec 03/21/18 11:15 Anaerobic Culture - Preliminary Abdomen 03/21/18 11:15 Anaerobic Culture - Preliminary Abdomen 03/20/18 10:52 Blood Culture - Final Blood 03/20/18 10:37 Urine Culture - Preliminary Urine,Clean Catch Gram Neg Bacilli Assessment and Plan Plan: 1. Altered mental status changes likely due to metabolic encephalopathy related to infectious processes from pneumonia and UTI and acute kidney injury. Computed tomography scan shows no acute changes 2. Possible pneumonia noted on chest x-ray. Patient does admit to a cough. We 'll continue Rocephin. Azithromycin discontinued due to its interaction with the Risperdal 3. UTI: Continue antibiotics. Check urine culture 4. Acute kidney injury: Likely secondary to dehydration from diuretics and diarrhea. Also a Hold hydrochlorothiazide. Continue with IV fluids. She received a bolus in the ER. Continue normal saline at 75 mL an hour. 5. Diarrhea now resolved. Her family patient having multiple loose stools daily for the last 3 weeks. Last bowel movement 2 days 6. Hypokalemia: Patient received potassium supplement 7. Anemia: Check iron studies. Check stool for occult blood. Patient reports no acute 8. Elevated troponin likely related to her acute kidney injury. Continue to monitor cardiac enzymes. Patient reports no chest pain. EKG showing sinus tachycardia with a heart rate of 104 with PVCs 9. Severe protein calorie malnutrition: Albumin 2.1. Add ensure 3 times a day with meals 10. History of rheumatoid arthritis 11. History of COPD. Stable 12. Hypothyroidism continue Synthroid. Check thyroid level 13. Sinus tachycardia likely related to dehydration. Continue IV fluids. 14. Sepsis with tachycardia and leukocytosis. Continue antibiotics and IV fluids. Lactic acid level normal. check blood culture and urine culture 15. Complex mass in the pelvis related to the sigmoid colon patient underwent surgery with Dr. Hernandez with partial colectomy and colostomy placement GI prophylaxis Pepcid and DVT prophylaxis subcu
[2018-03-22] MEDS: POTASSIUM CHLORIDE 10 MEQ in WATER FOR INJECTION 1 100ML.BAG IVPB SCH ×2 (17:19→19:03)
[2018-03-22 17:32] LABS: Glucose,Whole Blood 128 mg/dL (75-99)
[2018-03-22] MEDS: FLUCONAZOLE IN NACL,ISO-OSM 200 MG in SALINE 1 100ML.BAG IVPB SCH (18:27)
[2018-03-22 23:34] LABS: Glucose,Whole Blood 124 mg/dL (75-99)
--- NOTE | 2018-03-22 23:57 | PN ---
PROGRESS NOTE DATE OF SERVICE: 03/22/2018. REASON FOR FOLLOWUP: Secondary peritonitis with sepsis. INTERVAL HISTORY: The patient was taken to the OR on 03/21. He was noticed to have a perforated bowel. He is status post exploratory laparotomy with sigmoid colectomy and end-colostomy and partial omentectomy and repair of incisional hernia. The patient is currently intubated on the vent and sedated and not on any pressor support. Did require some fluid resuscitation initially though per the RN. No other changes. be recorded. EXAMINATION: Blood pressure 111/49, pulse of 96, temperature 98. She is 100% on 40% FiO2. General description is an elderly female intubated on the vent. HEENT: Shows pallor. No scleral icterus. Oral mucosa membranes dry. Lungs unlabored breathing with decreased breath sounds in the bases. No wheeze. Heart S1, S2. Regular rate and rhythm. Abdomen soft, no tenderness. No guarding or rigidity. Extremities: No edema of the feet. LABS: Hemoglobin 8.2, white count 22.6, BUN of 55, creatinine is 1.57. Abdominal culture showing gram-negative bacilli. Lina albicans in the sputum, blood culture has been positive for Pseudomonas aeruginosa. DIAGNOSTIC IMPRESSION/PLAN: Patient with abdominal sepsis in a patient who did have perforated bowel, status post diverting colostomy. Now with evidence of pneumatosis aeruginosa bacteremia. Patient currently covered with Zosyn to which the organism is sensitive. Did have a positive culture with Lina albicans, which in the sputum could be colonized but may be indicated oral candidiasis. Diflucan will be added elevated white count. Continue Zosyn in view of low overall positive infection. Discontinue the vancomycin to decrease risk of nephrotoxicity. We will continue to monitor the patient closely. Continue supportive care. MMODL / IJN: [id number] /
[2018-03-23] MEDS: INSULIN ASPART 100 UNIT/ML 1 ML 10 ML VIAL SQ SCH ×4 (00:24→17:34)
[2018-03-23] MEDS: POTASSIUM CHLORIDE 10 MEQ in WATER FOR INJECTION 1 100ML.BAG IVPB SCH ×2 (00:52→02:55)
[2018-03-23] MEDS: PROPOFOL 1,000 MG in EMPTY BAG 1 BAG IV SCH (02:54)
[2018-03-23 04:08] LABS: Calcium 7.1 mg/dL (8.4-10.2); Phosphorus 2.9 mg/dL (2.5-4.5)
[2018-03-23 05:08] LABS: ABG Base Excess -3.4 mmol/L; ABG HCO3 20 mmol/L (21-25); ABG Oxygen Saturation 98.4 % (94-97); ABG PCO2 28 mmHg (35-45); ABG PH 7.47 (7.35-7.45); ABG PO2 103 mmHg (83-108); ABG TCO2 21 mmol/L (19-24)
[2018-03-23 05:48] LABS: HCT 24.7 % (34.0-46.0); HGB 7.5 gm/dL (11.4-16.0); Hypochromasia Marked; MCH 24.1 pg (25.0-35.0); MCHC 30.3 g/dL (31.0-37.0); MCV 79.4 fL (80.0-100.0); Mean Platelet Volume 8.4; Platelet Count 227 k/uL (150-450); RBC 3.11 m/uL (3.80-5.40); RDW 15.9 % (11.5-15.5); WBC 19.2 k/uL (3.8-10.6)
--- NOTE | 2018-03-23 07:51 | XR ---
EXAMINATION TYPE: XR chest 1V DATE OF EXAM: 03/23/2018 CLINICAL HISTORY: Difficulty breathing progress study. TECHNIQUE: Single AP portable upright view of the chest is obtained. COMPARISON: Chest x-ray from one day earlier and older studies. FINDINGS: An endotracheal tube, orogastric tube, and low lying right internal jugular central venous catheter are all stable in appearance. There is persistent bibasilar opacity consistent with atelect asis and/or infiltrate and likely small left pleural effusion. Cardiac blood size is stable and enlar ged with atherosclerotic and ectatic thoracic aorta. Osseous structures are demineralized. Mild centr al vascular congestion is felt present. IMPRESSION: Overall stable findings, cardiomegaly with mild central vascular congestion, small left greater than right pleural effusions and associated bibasilar atelectasis and/or infiltrate all rede monstrated.
[2018-03-23] MEDS ORDERED: ACETAMINOPHEN TAB 325 MG TAB PO PRN (08:20)
[2018-03-23] MEDS: CHLORHEXIDINE GLUCONATE 15 ML CUP MUCOUS MEM SCH ×2 (08:41→21:35)
[2018-03-23] MEDS: SODIUM CHLORIDE 0.9% 1,000 ML IV SCH ×3 (08:41→18:08)
[2018-03-23] MEDS: PANTOPRAZOLE 40 MG/10 ML VIAL IVP SCH (08:42)
[2018-03-23] MEDS: LEVOTHYROXINE IVP 100 MCG/5 ML VIAL IV SCH (08:42)
[2018-03-23] MEDS: HEPARIN SODIUM,PORCINE 5,000 UNIT/ML 1 ML VIAL SQ SCH ×2 (08:43→21:35)
--- NOTE | 2018-03-23 09:50 | P.PN ---
Subjective Progress Note Date: 03/23/18 Principal diagnosis: Uremic encephalopathy, pneumonia, renal failure, sigmoid colectomy with colostomy Progress note dated 03/23/2018 This is a 87-year-old female who is a DO NOT RESUSCITATE, was admitted on March 20 with diagnosis of uremic encephalopathy, pneumonia, renal failure, and was found on computed tomography scan to have a complex abdominal mass. She underwent expiratory laparotomy on March 21 and had a sigmoid colectomy with colostomy. The patient is currently a DO NOT RESUSCITATE and I had a chance to talk to the family member today and we are going to give her a total Friday or so to see whether or not she is able to be extubated. Currently on the ventilator on the volume assist control mode with a rate of 12, tidal volume of 400, FiO2 40% PEEP of 5. Arterial blood gases show a PaO2 of 103 a PaCO2 of 28 and a pH 7.47. She's also receiving a saline IV at 1 50 mL an hour norepinephrine at 8 mcg/m and propofol at 25 mics per kilogram per minute. The patient will possibly be started on TPN today. We will do a daily eruption of sedation. We did make some vent changes increasing the rate 18, decreasing the volume to 350 and decreasing the FiO2 35%. Chest x-ray shows a possible infiltrate in the right lower lobe and small bilateral effusions. Her overall prognosis is very poor. Objective - Vital Signs Vital signs: Vital Signs Temp 100.0 F H 03/23/18 04:00 Pulse 109 H 03/23/18 06:00 Resp 23 03/23/18 06:00 BP 119/56 03/23/18 06:00 Pulse Ox 100 03/23/18 06:00 Intake & Output 03/22/18 03/23/18 03/23/18 18:59 06:59 18:59 Intake Total 4883.608 1919.467 230.967 Output Total 581 445 Balance 4302.608 1474.467 230.967 Weight 78.1 kg Intake: IV 4736 1833.0 Dextrose 5% in Water 1, 150 000 ml @ 75 mls/hr IV . [id number] [facility] with Sodium Bicarb (1 Meq/ml) 150 ml Rx#:[id number] Piperacillin-Tazobactam 3 100 50.0 .375 gm In Dextrose/Water 1 50ml.bag @ 12.5 mls/hr IVPB Q8HR [facility] Rx#: [id number] Sodium Chloride 0.9% 1, 1800 1650 000 ml @ 150 mls/hr IV . Q6H40M [facility] Rx#:[id number] Sodium Chloride 0.9% 1, 2000 000 ml @ 999 mls/hr IV . Q1H1M [facility] Rx#:[id number] Vancomycin 1,000 mg In 250 Sodium Chloride 0.9% 250 ml @ 125 mls/hr IVPB Q24H [facility] Rx#:[id number] fluconazole 100 metroNIDAZOLE-NS PMX 500 300 100 mg In Saline 1 100ml.bag @ 100 mls/hr IVPB Q8HR [facility] Rx#:[id number] pressure bag 36 33 Intake, IV Titration 147.608 86.467 230.967 Amount Norepinephrine 16 mg In 99.751 187.712 Sodium Chloride 0.9% 250 ml @ Titrate IV .Q0M [facility] Rx#:[id number] Propofol 1,000 mg In 47.857 86.467 43.255 Empty Bag 1 bag @ Titrate IV .Q0M [facility] Rx#: [id number] Output: Gastric Drainage 65 Drainage 65 60 Abdomen 65 60 Urine 451 385 Other: Voiding Method Indwelling Catheter Indwelling Catheter ABP, PAP, CO, CI - Last Documented Arterial Blood Pressure 87/61 - Exam No acute distress, sedated, with an orally placed endotracheal tube and NG tube. HEENT examination is grossly unremarkable. Mucous membranes are moist. Neck supple. Full range of motion. No adenopathy thyromegaly or neck vein distention. Cardiovascular examination reveals regular rhythm rate. S1-S2 normal. No S3 or S4. No discernible murmur noted. Heart sounds are distant. Lungs reveal bilateral diffuse rhonchi. No wheezes or crackles. Breath sounds are equal bilaterally. Abdomen soft bowel sounds are heard. No masses or tenderness. Extremities are intact. No cyanosis clubbing or edema. Skin is without rash or lesion. Neurologic examination could not be performed as the patient is sedated. - Labs CBC & Chem 7: 03/23/18 03:43 03/23/18 03:43 Labs: Abnormal Lab Results - Last 24 Hours (Table) 03/22/18 03/22/18 03/22/18 Range/Units 11:58 17:30 23:31 WBC (3.8-10.6) k/uL RBC (3.80-5.40) m/uL Hgb (11.4-16.0) gm/dL Hct (34.0-46.0) % MCV (80.0-100.0) fL MCH (25.0-35.0) pg MCHC (31.0-37.0) g/dL RDW (11.5-15.5) % ABG pH (7.35-7.45) ABG pCO2 (35-45) mmHg ABG HCO3 (21-25) mmol/L ABG O2 Saturation (94-97) % Sodium (137-145) mmol/L Chloride (98-107) mmol/L Carbon Dioxide (22-30) mmol/L BUN (7-17) mg/dL Creatinine (0.52-1.04) mg/dL Glucose (74-99) mg/dL POC Glucose (mg/dL) 129 H 128 H 124 H (75-99) mg/dL Calcium (8.4-10.2) mg/dL 03/23/18 03/23/18 03/23/18 Range/Units 03:43 03:43 05:03 WBC 19.2 H (3.8-10.6) k/uL RBC 3.11 L (3.80-5.40) m/uL Hgb 7.5 L (11.4-16.0) gm/dL Hct 24.7 L (34.0-46.0) % MCV 79.4 L (80.0-100.0) fL MCH 24.1 L (25.0-35.0) pg MCHC 30.3 L (31.0-37.0) g/dL RDW 15.9 H (11.5-15.5) % ABG pH 7.47 H (7.35-7.45) ABG pCO2 28 L (35-45) mmHg ABG HCO3 20 L (21-25) mmol/L ABG O2 Saturation 98.4 H (94-97) % Sodium 147 H (137-145) mmol/L Chloride 124 H (98-107) mmol/L Carbon Dioxide 19 L (22-30) mmol/L BUN 53 H (7-17) mg/dL Creatinine 1.30 H (0.52-1.04) mg/dL Glucose 115 H (74-99) mg/dL POC Glucose (mg/dL) (75-99) mg/dL Calcium 7.1 L (8.4-10.2) mg/dL Microbiology - Last 24 Hours (Table) 03/21/18 19:45 Gram Stain - Final Sputum Sputum Culture - Final Lina albicans 03/20/18 10:52 Blood Culture Gram Stain - Final Blood Blood Culture - Final Pseudomonas aeruginosa 03/21/18 11:15 Gram Stain - Preliminary Abdomen Wound Culture - Preliminary Gram Neg Bacilli Gram Neg Bacilli#2 03/21/18 11:15 Gram Stain - Preliminary Abdomen Wound Culture - Preliminary Gram Neg Bacilli Gram Neg Bacilli#2 Assessment and Plan Assessment: Assessment Postop day #2, status post exploratory laparotomy with sigmoid colectomy and colostomy. There is also repair of an incisional hernia and left salpingectomy and wash out of the peritoneal cavity. 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 With that, her respiratory rates were in the mid 20s and tidal volumes are in the 4-500 range. We'll maintain her on that for the present time. I did have a chance to speak to the family. Patient is a DO NOT RESUSCITATE. By Friday, we'll make a further decision about what to do next. This is a woman who probably would not have wanted to be on mechanical ventilation according to family members. She remains on norepinephrine. We've given her a sedation holiday. She's getting saline IV at 1 50 mL an hour. Arterial blood gases are reasonable. Vent changes were made. There are gram-negative bacilli and the abdominal cultures. In addition the blood cultures were positive for pseudomonas aeruginosa. The urine cultures were positive for gram-negative bacilli. White blood count is 19.2 hemoglobin 7.5 hematocrit 24.7 and platelet count 227,000. Sodium 147 potassium 4 chloride is 124 CO2 19 with a normal anion gap. BUN and creatinine were 53 and 1.30. The patient's prognosis is poor. The family knows time. Possible terminal extubation on Friday. The beta ghislaine was discontinued given the patient being on norepinephrine. We'll see if we can consolidate some of the antibiotics. Critical care time 35 minutes Time with Patient: Greater than 30
[2018-03-23] MEDS: metroNIDAZOLE-NS PMX 500 MG in SALINE 1 100ML.BAG IVPB SCH ×2 (09:57→17:14)
[2018-03-23] MEDS: FLUCONAZOLE IN NACL,ISO-OSM 200 MG in SALINE 1 100ML.BAG IVPB SCH (09:57)
[2018-03-23] MEDS: PIPERACILLIN-TAZOBACTAM 3.375 GM in DEXTROSE/WATER 1 50ML.BAG IVPB SCH ×2 (09:57→17:13)
--- NOTE | 2018-03-23 09:58 | P.PN ---
Subjective Progress Note Date: 03/23/18 This is a 87-year-old female, patient of Dr. Solares. She has a known past medical history of hypothyroidism, hyperlipidemia, rheumatoid arthritis and COPD. Patient is still smoking she is working on quitting she's down to 3 cigarettes a day. Patient presents to the emergency room via EMS due to altered mental status changes. Family is now at bedside. Ahuiheio-xz-fvj reports that her ojcmte-hx-kfs has been more confused over the last couple a days. Prior to that she was having diarrhea for the past 3 weeks. They treated this at home with yogurt. Patient had been 2 days without a stool. Patient does report cough that is productive. She was found have evidence of pneumonia and UTI. Has been started on Rocephin and azithromycin in the ER. Also evidence of acute kidney injury creatinine elevated at 1.97. Diuretics have been placed on hold she's getting IV fluids. White count elevated at 19 hemoglobin down at 9.8 platelets 528 potassium 2.7 troponin elevated 0.055 possibly related to her acute kidney injury. Chest x-ray showing pulmonary venous Congestion and basilar atelectasis or infiltrate. Computed tomography scan of the brain showed no acute changes. EKG had shown sinus tachycardia with a heart rate of 104 with PVCs right bundle branch block and left anterior fascicular block. EMS had reported patient to be tachycardic and hypotensive. Blood pressures are now stable. Again note that the hydrochlorothiazide has been placed on hold. Discontinued the azithromycin due to its interaction with the Risperdal which she takes in the evening. At this time we'll continue with Rocephin. Patient denies any chest pain or shortness of breath. Denies any nausea or vomiting. Bowel movements have improved. Denies any burning with urination or frequency or urgency. Patient does live with utjoobru-yt-bod at home. Baseline mentation is usually alert and orientated to name and place. On 03/21/2018 patient was seen and examined in the intensive care unit she is intubated sedated maintained on mechanical ventilation she is maintained on IV pressors she just returned from operating room she underwent exploratory laparotomy with sigmoid colectomy with end colostomy. On 03/22/2018 patient seen and examined in intensive care unit she remains intubated sedated and maintained on mechanical ventilation her urine output is marginal, white blood count is 22.6 hemoglobin 8.2 03/23/2018 patient remains in the intensive care unit requiring intubation and sedation. Patient is currently postop day 2 exploratory lap with sigmoid colectomy. Hemoglobin is 7.5. White blood cell trending down to 19.2. Objective - Vital Signs Vital signs: Vital Signs Temp 100.0 F H 03/23/18 04:00 Pulse 109 H 03/23/18 06:00 Resp 23 03/23/18 06:00 BP 119/56 03/23/18 06:00 Pulse Ox 100 03/23/18 06:00 Intake & Output 03/22/18 03/23/18 03/23/18 18:59 06:59 18:59 Intake Total 4883.608 1919.467 230.967 Output Total 581 445 Balance 4302.608 1474.467 230.967 Weight 78.1 kg Intake: IV 4736 1833.0 Dextrose 5% in Water 1, 150 000 ml @ 75 mls/hr IV . [id number] HERNAN with Sodium Bicarb (1 Meq/ml) 150 ml Rx#:[id number] Piperacillin-Tazobactam 3 100 50.0 .375 gm In Dextrose/Water 1 50ml.bag @ 12.5 mls/hr IVPB Q8HR [facility] Rx#: [id number] Sodium Chloride 0.9% 1, 1800 1650 000 ml @ 150 mls/hr IV . Q6H40M [facility] Rx#:[id number] Sodium Chloride 0.9% 1, 2000 000 ml @ 999 mls/hr IV . Q1H1M [facility] Rx#:[id number] Vancomycin 1,000 mg In 250 Sodium Chloride 0.9% 250 ml @ 125 mls/hr IVPB Q24H [facility] Rx#:[id number] fluconazole 100 metroNIDAZOLE-NS PMX 500 300 100 mg In Saline 1 100ml.bag @ 100 mls/hr IVPB Q8HR [facility] Rx#:[id number] pressure bag 36 33 Intake, IV Titration 147.608 86.467 230.967 Amount Norepinephrine 16 mg In 99.751 187.712 Sodium Chloride 0.9% 250 ml @ Titrate IV .Q0M [facility] Rx#:[id number] Propofol 1,000 mg In 47.857 86.467 43.255 Empty Bag 1 bag @ Titrate IV .Q0M [facility] Rx#: [id number] Output: Gastric Drainage 65 Drainage 65 60 Abdomen 65 60 Urine 451 385 Other: Voiding Method Indwelling Catheter Indwelling Catheter ABP, PAP, CO, CI - Last Documented Arterial Blood Pressure 87/61 - Exam Patient is intubated sedated maintained on mechanical ventilation Head normocephalic and atraumatic Neck supple no JVD no goiter Lungs few coarse breath sounds noted at the bases Heart regular rate and rhythm S1-S2, no rub or gallop Abdomen is soft nontender nondistended positive bowel sounds no hepatosplenomegaly, patient had colostomy placement she has a J-tube drainage Extremities no edema no cyanosis or clubbing Neuro alert and orientated to [address]. Patient currently at baseline. - Labs CBC & Chem 7: 03/23/18 03:43 03/23/18 03:43 Labs: Abnormal Lab Results - Last 24 Hours (Table) 03/22/18 03/22/18 03/22/18 Range/Units 11:58 17:30 23:31 WBC (3.8-10.6) k/uL RBC (3.80-5.40) m/uL Hgb (11.4-16.0) gm/dL Hct (34.0-46.0) % MCV (80.0-100.0) fL MCH (25.0-35.0) pg MCHC (31.0-37.0) g/dL RDW (11.5-15.5) % ABG pH (7.35-7.45) ABG pCO2 (35-45) mmHg ABG HCO3 (21-25) mmol/L ABG O2 Saturation (94-97) % Sodium (137-145) mmol/L Chloride (98-107) mmol/L Carbon Dioxide (22-30) mmol/L BUN (7-17) mg/dL Creatinine (0.52-1.04) mg/dL Glucose (74-99) mg/dL POC Glucose (mg/dL) 129 H 128 H 124 H (75-99) mg/dL Calcium (8.4-10.2) mg/dL 03/23/18 03/23/18 03/23/18 Range/Units 03:43 03:43 05:03 WBC 19.2 H (3.8-10.6) k/uL RBC 3.11 L (3.80-5.40) m/uL Hgb 7.5 L (11.4-16.0) gm/dL Hct 24.7 L (34.0-46.0) % MCV 79.4 L (80.0-100.0) fL MCH 24.1 L (25.0-35.0) pg MCHC 30.3 L (31.0-37.0) g/dL RDW 15.9 H (11.5-15.5) % ABG pH 7.47 H (7.35-7.45) ABG pCO2 28 L (35-45) mmHg ABG HCO3 20 L (21-25) mmol/L ABG O2 Saturation 98.4 H (94-97) % Sodium 147 H (137-145) mmol/L Chloride 124 H (98-107) mmol/L Carbon Dioxide 19 L (22-30) mmol/L BUN 53 H (7-17) mg/dL Creatinine 1.30 H (0.52-1.04) mg/dL Glucose 115 H (74-99) mg/dL POC Glucose (mg/dL) (75-99) mg/dL Calcium 7.1 L (8.4-10.2) mg/dL Microbiology - Last 24 Hours (Table) 03/21/18 19:45 Gram Stain - Final Sputum Sputum Culture - Final Lina albicans 03/20/18 10:52 Blood Culture Gram Stain - Final Blood Blood Culture - Final Pseudomonas aeruginosa 03/21/18 11:15 Gram Stain - Preliminary Abdomen Wound Culture - Preliminary Gram Neg Bacilli Gram Neg Bacilli#2 03/21/18 11:15 Gram Stain - Preliminary Abdomen Wound Culture - Preliminary Gram Neg Bacilli Gram Neg Bacilli#2 Assessment and Plan Assessment: 1. Altered mental status changes likely due to metabolic encephalopathy related to infectious processes from pneumonia and UTI and acute kidney injury. Computed tomography scan shows no acute changes 2. Possible pneumonia noted on chest x-ray. Patient does admit to a cough. We 'll continue Rocephin. Azithromycin discontinued due to its interaction with the Risperdal 3. UTI: Continue antibiotics. Check urine culture 4. Acute kidney injury: Likely secondary to dehydration from diuretics and diarrhea. Also a Hold hydrochlorothiazide. Continue with IV fluids. She received a bolus in the ER. Continue normal saline at 75 mL an hour. 5. Diarrhea now resolved. Her family patient having multiple loose stools daily for the last 3 weeks. Last bowel movement 2 days 6. Hypokalemia: Patient received potassium supplement 7. Anemia: Check iron studies. Check stool for occult blood. Patient reports no acute 8. Elevated troponin likely related to her acute kidney injury. Continue to monitor cardiac enzymes. Patient reports no chest pain. EKG showing sinus tachycardia with a heart rate of 104 with PVCs 9. Severe protein calorie malnutrition: Albumin 2.1. Add ensure 3 times a day with meals 10. History of rheumatoid arthritis 11. History of COPD. Stable 12. Hypothyroidism continue Synthroid. Check thyroid level 13. Sinus tachycardia likely related to dehydration. Continue IV fluids. 14. Sepsis with tachycardia and leukocytosis. Continue antibiotics and IV fluids. Lactic acid level normal. blood culture growing pseudomonas aeruginosa , abdominal culture growing gram neg bacilli and sputum growing lina albicans. Infectious disease following. Patient currently on Diflucan, Flagyl and Zosyn 15. Complex mass in the pelvis related to the sigmoid colon patient underwent surgery with Dr. Hernandez with partial colectomy and colostomy placement GI prophylaxis Pepcid and DVT prophylaxis subcu. patient currently postop day 2. Patient remains on mechanical ventilation. Critical care following closely 16. Hypotension secondary to septic shock. Patient remains on Levoohed for pressure support. Dr. Moore following for critical care. 17. Expected blood loss anemia secondary to surgery. Hgb 7.5. Continue to monitor closely DVT prophylaxis heparin. GI prophylaxis Protonix I performed an examination of the patient and discussed their management with the Nurse Practitioner. I have reviewed the Nurse Practitioner's notes and agree with the documented findings and plan of care
[2018-03-23] MEDS: IPRATROPIUM-ALBUTEROL 3 ML NEB INHALATION SCH ×3 (11:00→19:34)
[2018-03-23 11:07] LABS: Hemoglobin A1C 6.2 % (4.0-6.0)
[2018-03-23 11:37] VITALS: BMI 28.6
[2018-03-23] MEDS ORDERED: MVI, ADULT NO.4 WITH VIT K 10 ML, TRACE (CONC-1ML/DOSE) 1 ML in AMINO ACID 5%-D15W+LYTE... IV ONE ×3 (12:00)
[2018-03-23 12:20] LABS: Glucose,Whole Blood 124 mg/dL (75-99)
[2018-03-23 13:13] LABS: Albumin 1.4 g/dL (3.5-5.0)
[2018-03-23] MEDS: NOREPINEPHRINE 16 MG in SODIUM CHLORIDE 0.9% 250 ML IV SCH (13:14)
--- NOTE | 2018-03-23 15:07 | P.PN ---
Subjective Progress Note Date: 03/23/18 87-year-old female being seen in the intensive care unit on vent support sedated postop day 2 exploratory laparotomy with sigmoid colectomy. Hemoglobin this morning 7.5 white count continues to trend down. Patients requiring vent support with sedation pulmonary following Objective - Vital Signs Vital signs: Vital Signs Temp 101 F H 03/23/18 12:00 Pulse 109 H 03/23/18 13:00 Resp 26 H 03/23/18 13:00 BP 119/55 03/23/18 13:00 Pulse Ox 99 03/23/18 13:00 Intake & Output 03/22/18 03/23/18 03/23/18 18:59 06:59 18:59 Intake Total 4883.608 9795.235 6328.002 Output Total 581 445 270 Balance 4302.608 1474.467 991.002 Weight 78.1 kg 78.1 kg Intake: IV 4736 1833.0 1015 Dextrose 5% in Water 1, 150 000 ml @ 75 mls/hr IV . [id number] HERNAN with Sodium Bicarb (1 Meq/ml) 150 ml Rx#:[id number] Piperacillin-Tazobactam 3 100 50.0 50 .375 gm In Dextrose/Water 1 50ml.bag @ 12.5 mls/hr IVPB Q8HR [facility] Rx#: [id number] Sodium Chloride 0.9% 1, 1800 1650 750 000 ml @ 150 mls/hr IV . Q6H40M [facility] Rx#:[id number] Sodium Chloride 0.9% 1, 2000 000 ml @ 999 mls/hr IV . Q1H1M [facility] Rx#:[id number] Vancomycin 1,000 mg In 250 Sodium Chloride 0.9% 250 ml @ 125 mls/hr IVPB Q24H [facility] Rx#:[id number] fluconazole 100 100 metroNIDAZOLE-NS PMX 500 300 100 100 mg In Saline 1 100ml.bag @ 100 mls/hr IVPB Q8HR [facility] Rx#:[id number] pressure bag 36 33 15 Intake, IV Titration 147.608 86.467 246.002 Amount Norepinephrine 16 mg In 99.751 201.187 Sodium Chloride 0.9% 250 ml @ Titrate IV .Q0M [facility] Rx#:[id number] Propofol 1,000 mg In 47.857 86.467 44.815 Empty Bag 1 bag @ Titrate IV .Q0M [facility] Rx#: [id number] Output: Gastric Drainage 65 Drainage 65 60 Abdomen 65 60 Urine 451 385 270 Other: Voiding Method Indwelling Catheter Indwelling Catheter Indwelling Catheter ABP, PAP, CO, CI - Last Documented Arterial Blood Pressure 87/61 - Exam Physical exam 87-year-old female orally intubated on vent support sedated Lungs anterior diminished at the bases no wheezing Heart S1-S2 audible regular Abdomen ostomy no stool noted QI drain serous drainage noted surgical dressing dry nondistended indwelling Alford catheter in place indwelling Alford catheter in place Extremities Venodyne's on to the bilateral lower extremities - Labs CBC & Chem 7: 03/23/18 03:43 03/23/18 03:43 Labs: Abnormal Lab Results - Last 24 Hours (Table) 03/21/18 03/22/18 03/22/18 Range/Units 04:15 17:30 23:31 WBC (3.8-10.6) k/uL RBC (3.80-5.40) m/uL Hgb (11.4-16.0) gm/dL Hct (34.0-46.0) % MCV (80.0-100.0) fL MCH (25.0-35.0) pg MCHC (31.0-37.0) g/dL RDW (11.5-15.5) % ABG pH (7.35-7.45) ABG pCO2 (35-45) mmHg ABG HCO3 (21-25) mmol/L ABG O2 Saturation (94-97) % Sodium (137-145) mmol/L Chloride (98-107) mmol/L Carbon Dioxide (22-30) mmol/L BUN (7-17) mg/dL Creatinine (0.52-1.04) mg/dL Glucose (74-99) mg/dL POC Glucose (mg/dL) 128 H 124 H (75-99) mg/dL Hemoglobin A1c 6.2 H (4.0-6.0) % Calcium (8.4-10.2) mg/dL Albumin (3.5-5.0) g/dL Triglycerides (<150) mg/dL 03/23/18 03/23/18 03/23/18 Range/Units 03:43 03:43 05:03 WBC 19.2 H (3.8-10.6) k/uL RBC 3.11 L (3.80-5.40) m/uL Hgb 7.5 L (11.4-16.0) gm/dL Hct 24.7 L (34.0-46.0) % MCV 79.4 L (80.0-100.0) fL MCH 24.1 L (25.0-35.0) pg MCHC 30.3 L (31.0-37.0) g/dL RDW 15.9 H (11.5-15.5) % ABG pH 7.47 H (7.35-7.45) ABG pCO2 28 L (35-45) mmHg ABG HCO3 20 L (21-25) mmol/L ABG O2 Saturation 98.4 H (94-97) % Sodium 147 H (137-145) mmol/L Chloride 124 H (98-107) mmol/L Carbon Dioxide 19 L (22-30) mmol/L BUN 53 H (7-17) mg/dL Creatinine 1.30 H (0.52-1.04) mg/dL Glucose 115 H (74-99) mg/dL POC Glucose (mg/dL) (75-99) mg/dL Hemoglobin A1c (4.0-6.0) % Calcium 7.1 L (8.4-10.2) mg/dL Albumin (3.5-5.0) g/dL Triglycerides (<150) mg/dL 03/23/18 03/23/18 Range/Units 12:14 12:26 WBC (3.8-10.6) k/uL RBC (3.80-5.40) m/uL Hgb (11.4-16.0) gm/dL Hct (34.0-46.0) % MCV (80.0-100.0) fL MCH (25.0-35.0) pg MCHC (31.0-37.0) g/dL RDW (11.5-15.5) % ABG pH (7.35-7.45) ABG pCO2 (35-45) mmHg ABG HCO3 (21-25) mmol/L ABG O2 Saturation (94-97) % Sodium (137-145) mmol/L Chloride (98-107) mmol/L Carbon Dioxide (22-30) mmol/L BUN (7-17) mg/dL Creatinine (0.52-1.04) mg/dL Glucose (74-99) mg/dL POC Glucose (mg/dL) 124 H (75-99) mg/dL Hemoglobin A1c (4.0-6.0) % Calcium (8.4-10.2) mg/dL Albumin 1.4 L (3.5-5.0) g/dL Triglycerides 150 H (<150) mg/dL Microbiology - Last 24 Hours (Table) 03/20/18 10:52 Blood Culture Gram Stain - Final Blood Blood Culture - Final Pseudomonas aeruginosa 03/21/18 19:45 Gram Stain - Final Sputum Sputum Culture - Final Lina albicans Assessment and Plan Assessment: Impression Present on admission abdominal pain nausea vomiting suspect due to a partial bowel obstruction Prior history of colon cancer with prior bowel resection Urinary tract infection present on admission Underlying history of atrial fibrillation on anticoagulation A prior history of a DVT with PE with filter placed Status post March 21 exploratory laparotomy, sigmoid colectomy with end colostomy, partial omentectomy, repair of incisional hernia, left salpingectomy , washout of peritoneal cavity with QI drains placed over the rectal stump Plan Advance directives indicating no CODE STATUS Continue management per the anchor operator Vent support per pulmonary Continue postop surgical care TPN for nutritional support IV antibiotics as ordered DVT and GI prophylaxis Will follow with you The above impression and plan of care have been discussed and directed by signing physician. Gayathri Onofre nurse practitioner acting as scribe for signing physician.
[2018-03-23] MEDS ORDERED: FAT EMULSION 20% 250 ML in EMPTY BAG 1 BAG IV SCH (16:00)
[2018-03-23 17:30] LABS: Glucose,Whole Blood 195 mg/dL (75-99)
[2018-03-23 23:57] LABS: Glucose,Whole Blood 172 mg/dL (75-99)
[2018-03-24] MEDS: metroNIDAZOLE-NS PMX 500 MG in SALINE 1 100ML.BAG IVPB SCH ×4 (00:17→23:32)
[2018-03-24] MEDS: INSULIN ASPART 100 UNIT/ML 1 ML 10 ML VIAL SQ SCH ×4 (00:17→19:01)
[2018-03-24] MEDS: IPRATROPIUM-ALBUTEROL 3 ML NEB INHALATION SCH ×7 (00:17→23:10)
--- NOTE | 2018-03-24 01:42 | PN ---
PROGRESS NOTE DATE OF SERVICE: 03/23/2018 REASON FOR FOLLOWUP: Secondary peritonitis from a perforated rectosigmoid. INTERVAL HISTORY: The patient is currently afebrile. She is hemodynamically stable, not on pressor support. FiO2 remains stable at 35%. No significant changes clinically have been noted. She remains sedated on the vent. PHYSICAL EXAMINATION: Blood pressure 120/66 with a pulse of 125, temperature of 98. She is 98% on 35% FiO2. General description is an elderly female lying in bed in no distress. HEENT examination shows slight pallor. No scleral icterus. The patient is orally intubated. LUNGS: Unlabored breathing. Clear to auscultation anteriorly. HEART: S1, S2. Regular rate and rhythm. ABDOMEN: Soft. She does have minimal serous drainage at the lower end of the incision. LABS: Hemoglobin 7.5, white count 19.2 with a BUN of 53, creatinine 1.30. Sputum with Lina albicans. Abdominal culture with E coli and Pseudomonas aeruginosa with pseudomonas bacteremia. DIAGNOSTIC IMPRESSION AND PLAN: 1. Patient with Pseudomonas aeruginosa bacteremia secondary to abdominal source. 2. Patient with abdominal abscess from a perforated rectosigmoid, status post surgical repair with diverting colostomy. Plan at this time is to keep the patient on Zosyn and Diflucan and Flagyl, watching her clinical course closely. Continue with supportive care. MMODL / IJN: [id number] /
[2018-03-24] MEDS: SODIUM CHLORIDE 0.9% 1,000 ML IV SCH (01:57)
[2018-03-24] MEDS: PIPERACILLIN-TAZOBACTAM 3.375 GM in DEXTROSE/WATER 1 50ML.BAG IVPB SCH ×3 (01:57→16:31)
[2018-03-24] MEDS: PROPOFOL 1,000 MG in EMPTY BAG 1 BAG IV SCH (01:58)
[2018-03-24 05:28] LABS: Ionized Calcium 5.1 mg/dL (4.5-5.3)
[2018-03-24 05:38] LABS: Potassium 3.1 mmol/L (3.5-5.1)
[2018-03-24 05:39] LABS: Calcium 6.9 mg/dL (8.4-10.2); Phosphorus 3.3 mg/dL (2.5-4.5)
[2018-03-24 06:00] LABS: Anisocytosis Slight; Basophils % (A) 0 %; Eosinophils # (A) 0.2 k/uL (0-0.7); Eosinophils % (A) 1 %; HCT 23.2 % (34.0-46.0); HGB 7.2 gm/dL (11.4-16.0); Hypochromasia Marked; Lymphocytes # (A) 0.7 k/uL (1.0-4.8); Lymphocytes % (A) 4 %; MCH 25.5 pg (25.0-35.0); MCHC 31.2 g/dL (31.0-37.0); MCV 81.8 fL (80.0-100.0); Mean Platelet Volume 8.7; Monocytes # (A) 0.2 k/uL (0-1.0); Monocytes % (A) 1 %; Neutrophils % (A) 93 %; Platelet Count 204 k/uL (150-450); RBC 2.83 m/uL (3.80-5.40); RDW 16.1 % (11.5-15.5); WBC 17.3 k/uL (3.8-10.6)
[2018-03-24] MEDS: POTASSIUM BICARBONATE/CIT AC 20 MEQ TABLET.EFF NG-TUBE SCH ×4 (06:26→18:47)
[2018-03-24 06:53] LABS: Glucose,Whole Blood 205 mg/dL (75-99)
--- NOTE | 2018-03-24 07:25 | P.PN ---
Subjective Progress Note Date: 03/24/18 Principal diagnosis: Uremic encephalopathy, pneumonia, renal failure, sigmoid colectomy with colostomy Progress note dated 03/23/2018 This is a 87-year-old female who is a DO NOT RESUSCITATE, was admitted on March 20 with diagnosis of uremic encephalopathy, pneumonia, renal failure, and was found on computed tomography scan to have a complex abdominal mass. She underwent expiratory laparotomy on March 21 and had a sigmoid colectomy with colostomy. The patient is currently a DO NOT RESUSCITATE and I had a chance to talk to the family member today and we are going to give her a total Friday or so to see whether or not she is able to be extubated. Currently on the ventilator on the volume assist control mode with a rate of 12, tidal volume of 400, FiO2 40% PEEP of 5. Arterial blood gases show a PaO2 of 103 a PaCO2 of 28 and a pH 7.47. She's also receiving a saline IV at 1 50 mL an hour norepinephrine at 8 mcg/m and propofol at 25 mics per kilogram per minute. The patient will possibly be started on TPN today. We will do a daily eruption of sedation. We did make some vent changes increasing the rate 18, decreasing the volume to 350 and decreasing the FiO2 35%. Chest x-ray shows a possible infiltrate in the right lower lobe and small bilateral effusions. Her overall prognosis is very poor. Progress note dated 03/24/2018 87-year-old female who is a DO NOT RESUSCITATE patient. The patient was admitted on March 20 with a diagnosis of uremic encephalopathy, pneumonia, renal failure, and was found on computed tomography scan to have a complex abdominal mass. She underwent exploratory laparotomy on March 21 and had a sigmoid colectomy with colostomy. I did have a chance to speak to the daughter yesterday. By Friday, she'll make some sort of decision about the possibility of withdrawal from life support but apparently mom would not have wanted to be on life support. Currently she remains on the ventilator. Yesterday, she spent pretty much all day on PSV of 10 and CPAP of 5. Currently she is on the volume assist control mode rate of 18, tidal volume of 350, FiO2 35% and a PEEP of 5. Arterial blood gases show a PaO2 of 130, a PaCO2 26 and a pH of 7.48. The patient's on saline at 1 50 mL an hour. Norepinephrine is been turned off. She's getting a sedation holiday. Propofol is off. She is at TPN at 30 mL an hour. She is a DO NOT RESUSCITATE as mentioned. Chest x- rays essentially unchanged. She's got some infiltrate or atelectasis at the lower lobes and small effusions. Labs, x-rays and medications all reviewed. Objective - Vital Signs Vital signs: Vital Signs Temp 99.0 F 03/24/18 04:00 Pulse 103 H 03/24/18 07:00 Resp 30 H 03/24/18 07:00 BP 137/66 03/24/18 07:00 Pulse Ox 99 03/24/18 07:00 Intake & Output 03/23/18 03/24/18 03/24/18 18:59 06:59 18:59 Intake Total 2535.697 2498.330 183 Output Total 820 775 120 Balance 0629.702 6708.330 63 Weight 78.1 kg 78.5 kg Intake: IV 2263 2406 183 Fat Emulsion 20% 250 ml 210 In Empty Bag 1 bag @ 21 mls/hr IV [facility] Rx#: [id number] Mvi, Adult No.4 with Vit 180 360 30 K 10 ml Trace (Conc-1Ml/ Dose) 1 ml In Amino Acid 5%-D15w+Lytes*E* 1,000 ml @ 30 mls/hr IV .Q24H [facility] Rx#:[id number] Piperacillin-Tazobactam 3 100 .375 gm In Dextrose/Water 1 50ml.bag @ 12.5 mls/hr IVPB Q8HR [facility] Rx#: [id number] Sodium Chloride 0.9% 1, 1650 1800 150 000 ml @ 150 mls/hr IV . Q6H40M [facility] Rx#:[id number] fluconazole 100 metroNIDAZOLE-NS PMX 500 200 mg In Saline 1 100ml.bag @ 100 mls/hr IVPB Q8HR [facility] Rx#:[id number] pressure bag 33 36 3 Intake, IV Titration 272.697 92.330 Amount Norepinephrine 16 mg In 227.882 23.375 Sodium Chloride 0.9% 250 ml @ Titrate IV .Q0M [facility] Rx#:[id number] Propofol 1,000 mg In 44.815 68.955 Empty Bag 1 bag @ Titrate IV .Q0M [facility] Rx#: [id number] Output: Drainage 200 60 60 Abdomen 200 60 60 Urine 620 715 60 Other: Voiding Method Indwelling Catheter Indwelling Catheter ABP, PAP, CO, CI - Last Documented Arterial Blood Pressure 87/61 - Exam No acute distress, sedated, with an orally placed endotracheal tube and NG tube. HEENT examination is grossly unremarkable. Mucous membranes are moist. Neck supple. Full range of motion. No adenopathy thyromegaly or neck vein distention. Cardiovascular examination reveals regular rhythm rate. S1-S2 normal. No S3 or S4. No discernible murmur noted. Heart sounds are distant. Heart rate is 73. Lungs reveal diminished breath sounds throughout. Some bibasilar crackles are appreciated. Diffuse rhonchi are noted. No wheezes are noted. Abdomen soft bowel sounds are heard. No masses or tenderness. Colostomy is noted. Extremities are intact. No cyanosis clubbing or edema. Skin is without rash or lesion. Neurologic examination could not be performed as the patient is sedated. - Labs CBC & Chem 7: 03/24/18 04:00 03/24/18 04:00 Labs: Abnormal Lab Results - Last 24 Hours (Table) 03/21/18 03/23/18 03/23/18 Range/Units 04:15 12:14 12:26 WBC (3.8-10.6) k/uL RBC (3.80-5.40) m/uL Hgb (11.4-16.0) gm/dL Hct (34.0-46.0) % RDW (11.5-15.5) % Neutrophils # (1.3-7.7) k/uL Lymphocytes # (1.0-4.8) k/uL Sodium (137-145) mmol/L Potassium (3.5-5.1) mmol/L Chloride (98-107) mmol/L Carbon Dioxide (22-30) mmol/L BUN (7-17) mg/dL Creatinine (0.52-1.04) mg/dL Glucose (74-99) mg/dL POC Glucose (mg/dL) 124 H (75-99) mg/dL Hemoglobin A1c 6.2 H (4.0-6.0) % Calcium (8.4-10.2) mg/dL Albumin 1.4 L (3.5-5.0) g/dL Triglycerides 150 H (<150) mg/dL 03/23/18 03/23/18 03/24/18 Range/Units 17:27 23:55 04:00 WBC (3.8-10.6) k/uL RBC (3.80-5.40) m/uL Hgb (11.4-16.0) gm/dL Hct (34.0-46.0) % RDW (11.5-15.5) % Neutrophils # (1.3-7.7) k/uL Lymphocytes # (1.0-4.8) k/uL Sodium 147 H (137-145) mmol/L Potassium 3.1 L (3.5-5.1) mmol/L Chloride 126 H (98-107) mmol/L Carbon Dioxide 18 L (22-30) mmol/L BUN 41 H (7-17) mg/dL Creatinine 1.10 H (0.52-1.04) mg/dL Glucose 163 H (74-99) mg/dL POC Glucose (mg/dL) 195 H 172 H (75-99) mg/dL Hemoglobin A1c (4.0-6.0) % Calcium 6.9 L (8.4-10.2) mg/dL Albumin (3.5-5.0) g/dL Triglycerides (<150) mg/dL 03/24/18 03/24/18 Range/Units 04:00 06:42 WBC 17.3 H (3.8-10.6) k/uL RBC 2.83 L (3.80-5.40) m/uL Hgb 7.2 L (11.4-16.0) gm/dL Hct 23.2 L (34.0-46.0) % RDW 16.1 H (11.5-15.5) % Neutrophils # 16.0 H (1.3-7.7) k/uL Lymphocytes # 0.7 L (1.0-4.8) k/uL Sodium (137-145) mmol/L Potassium (3.5-5.1) mmol/L Chloride (98-107) mmol/L Carbon Dioxide (22-30) mmol/L BUN (7-17) mg/dL Creatinine (0.52-1.04) mg/dL Glucose (74-99) mg/dL POC Glucose (mg/dL) 205 H (75-99) mg/dL Hemoglobin A1c (4.0-6.0) % Calcium (8.4-10.2) mg/dL Albumin (3.5-5.0) g/dL Triglycerides (<150) mg/dL Microbiology - Last 24 Hours (Table) 03/21/18 11:15 Gram Stain - Final Abdomen Wound Culture - Final Escherichia coli Pseudomonas aeruginosa Lina albicans 03/21/18 11:15 Gram Stain - Final Abdomen Wound Culture - Final Escherichia coli Pseudomonas aeruginosa Lina albicans 03/20/18 10:52 Blood Culture Gram Stain - Final Blood Blood Culture - Final Pseudomonas aeruginosa 03/21/18 19:45 Gram Stain - Final Sputum Sputum Culture - Final Lina albicans Assessment and Plan Assessment: Assessment Postop day #3, status post exploratory laparotomy with sigmoid colectomy and colostomy. There is also repair of an incisional hernia and left salpingectomy and wash out of the peritoneal cavity. 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 With that, her respiratory rates were in the mid 20s and tidal volumes are in the 4-500 range. We'll maintain her on that for the present time. I did have a chance to speak to the family. Patient is a DO NOT RESUSCITATE. By Friday, we'll make a further decision about what to do next. This is a woman who probably would not have wanted to be on mechanical ventilation according to family members. She remains on norepinephrine. We've given her a sedation holiday. She's getting saline IV at 1 50 mL an hour. Arterial blood gases are reasonable. Vent changes were made. There are gram-negative bacilli and the abdominal cultures. In addition the blood cultures were positive for pseudomonas aeruginosa. The urine cultures were positive for gram-negative bacilli. White blood count is 19.2 hemoglobin 7.5 hematocrit 24.7 and platelet count 227,000. Sodium 147 potassium 4 chloride is 124 CO2 19 with a normal anion gap. BUN and creatinine were 53 and 1.30. The patient's prognosis is poor. The family knows time. Possible terminal extubation on Friday. The beta ghislaine was discontinued given the patient being on norepinephrine. We'll see if we can consolidate some of the antibiotics. Critical care time 35 minutes Plan dated 03/24/2018 Arterial blood gases are reasonable. The patient will again be placed on PSV 10 and CPAP 5. The norepinephrine has been weaned off. She is on a sedation holiday. She is receiving TPN at 30 mL an hour. He is also getting saline at 150 mL an hour. Labs x-rays a medications are all reviewed. White count is 17.3, hemoglobin 7.2, hematocrit 23.2 and platelet count 204,000. Sodium is 147 potassium 3.1 chloride 126 CO2 18 anion gap is 3 BUN and creatinine were 41 and 1.10 respectively. Saline IV will be converted to dextrose at the same rate. The patient is a DO NOT RESUSCITATE. The family will make some additional decisions by Friday. Prognosis is very poor. Given her age and her plethora of medical problems including the recent surgery, her outlook is dismal. The path report from the surgery is still pending. Certainly cancer is what our concern is. Additional recommendations and suggestions are forthcoming. All medications are reviewed. Critical care time 34 minutes Time with Patient: Greater than 30
[2018-03-24] MEDS: DEXTROSE 5% IN WATER 1,000 ML IV SCH ×2 (07:46→16:33)
[2018-03-24 08:21] LABS: ABG Base Excess -4.2 mmol/L; ABG HCO3 19 mmol/L (21-25); ABG Oxygen Saturation 97.8 % (94-97); ABG PCO2 26 mmHg (35-45); ABG PH 7.48 (7.35-7.45); ABG TCO2 20 mmol/L (19-24)
[2018-03-24 08:23] LABS: ABG PO2 130 mmHg (83-108)
--- NOTE | 2018-03-24 08:39 | XR ---
EXAMINATION TYPE: XR chest 1V DATE OF EXAM: 03/24/2018 COMPARISON: Prior chest x-ray 03/23/2018 HISTORY: Right lower lobe infiltrate, abnormal chest x-ray TECHNIQUE: Single frontal view of the chest is obtained. FINDINGS: Endotracheal tube and NG tube are overlying appropriate positions, central venous catheter shows the distal tip in the right atrium. No evident pneumothorax. Bibasilar increased density persi sts. Heart size is likely stable accounting for differences in technique, rotation. Interstitium mild ly increased. Suspect elevation of the right hemidiaphragm. There are overlying cardiac leads. Postop changes noted to the abdomen. The aorta is dense. IMPRESSION: Basilar atelectasis versus edema and associated effusions, correlate to exclude pneumoni a. There may be a component of mild volume overload, pulmonary venous hypertension and interstitial e nathan. Follow-up recommended.
[2018-03-24] MEDS: CHLORHEXIDINE GLUCONATE 15 ML CUP MUCOUS MEM SCH ×2 (09:18→21:45)
[2018-03-24] MEDS: LEVOTHYROXINE IVP 100 MCG/5 ML VIAL IV SCH (09:19)
[2018-03-24] MEDS: HEPARIN SODIUM,PORCINE 5,000 UNIT/ML 1 ML VIAL SQ SCH ×2 (09:19→21:45)
[2018-03-24] MEDS: PANTOPRAZOLE 40 MG/10 ML VIAL IVP SCH (09:19)
[2018-03-24] MEDS: FLUCONAZOLE IN NACL,ISO-OSM 100 MG in SALINE 1 50ML.BAG IVPB SCH (09:19)
[2018-03-24] MEDS: POTASSIUM CHLORIDE 20 MEQ in WATER FOR INJECTION 1 100ML.BAG IVPB SCH ×2 (09:21→10:55)
--- NOTE | 2018-03-24 10:19 | P.PN ---
Subjective Progress Note Date: 03/24/18 This is a 87-year-old female, patient of Dr. Solares. She has a known past medical history of hypothyroidism, hyperlipidemia, rheumatoid arthritis and COPD. Patient is still smoking she is working on quitting she's down to 3 cigarettes a day. Patient presents to the emergency room via EMS due to altered mental status changes. Family is now at bedside. [id number] reports that her iibmex-nv-mjb has been more confused over the last couple a days. Prior to that she was having diarrhea for the past 3 weeks. They treated this at home with yogurt. Patient had been 2 days without a stool. Patient does report cough that is productive. She was found have evidence of pneumonia and UTI. Has been started on Rocephin and azithromycin in the ER. Also evidence of acute kidney injury creatinine elevated at 1.97. Diuretics have been placed on hold she's getting IV fluids. White count elevated at 19 hemoglobin down at 9.8 platelets 528 potassium 2.7 troponin elevated 0.055 possibly related to her acute kidney injury. Chest x-ray showing pulmonary venous Congestion and basilar atelectasis or infiltrate. Computed tomography scan of the brain showed no acute changes. EKG had shown sinus tachycardia with a heart rate of 104 with PVCs right bundle branch block and left anterior fascicular block. EMS had reported patient to be tachycardic and hypotensive. Blood pressures are now stable. Again note that the hydrochlorothiazide has been placed on hold. Discontinued the azithromycin due to its interaction with the Risperdal which she takes in the evening. At this time we'll continue with Rocephin. Patient denies any chest pain or shortness of breath. Denies any nausea or vomiting. Bowel movements have improved. Denies any burning with urination or frequency or urgency. Patient does live with [id number] at home. Baseline mentation is usually alert and orientated to name and place. On 03/21/2018 patient was seen and examined in the intensive care unit she is intubated sedated maintained on mechanical ventilation she is maintained on IV pressors she just returned from operating room she underwent exploratory laparotomy with sigmoid colectomy with end colostomy. On 03/22/2018 patient seen and examined in intensive care unit she remains intubated sedated and maintained on mechanical ventilation her urine output is marginal, white blood count is 22.6 hemoglobin 8.2 03/23/2018 patient remains in the intensive care unit requiring intubation and sedation. Patient is currently postop day 2 exploratory lap with sigmoid colectomy. Hemoglobin is 7.5. White blood cell trending down to 19.2. On 03/24/2018 patient remains on mechanical ventilation and in the intensive care unit. Patient is currently postop day 3 from exploratory lap with sigmoid colectomy. Per nursing staff patient has been off sedation and following some commands. CPAP trial will be initiated. WBC 17.3. Objective - Vital Signs Vital signs: Vital Signs Temp 99.0 F 03/24/18 04:00 Pulse 107 H 03/24/18 07:21 Resp 30 H 03/24/18 07:00 BP 137/66 03/24/18 07:00 Pulse Ox 99 03/24/18 07:00 Intake & Output 03/23/18 03/24/18 03/24/18 18:59 06:59 18:59 Intake Total 2535.697 2498.330 183 Output Total 820 775 120 Balance 9860.456 4474.330 63 Weight 78.1 kg 78.5 kg Intake: IV 2263 2406 183 Fat Emulsion 20% 250 ml 210 In Empty Bag 1 bag @ 21 mls/hr IV [facility] Rx#: [id number] Mvi, Adult No.4 with Vit 180 360 30 K 10 ml Trace (Conc-1Ml/ Dose) 1 ml In Amino Acid 5%-D15w+Lytes*E* 1,000 ml @ 30 mls/hr IV .Q24H [facility] Rx#:[id number] Piperacillin-Tazobactam 3 100 .375 gm In Dextrose/Water 1 50ml.bag @ 12.5 mls/hr IVPB Q8HR [facility] Rx#: [id number] Sodium Chloride 0.9% 1, 1650 1800 150 000 ml @ 150 mls/hr IV . Q6H40M [facility] Rx#:[id number] fluconazole 100 metroNIDAZOLE-NS PMX 500 200 mg In Saline 1 100ml.bag @ 100 mls/hr IVPB Q8HR [facility] Rx#:[id number] pressure bag 33 36 3 Intake, IV Titration 272.697 92.330 Amount Norepinephrine 16 mg In 227.882 23.375 Sodium Chloride 0.9% 250 ml @ Titrate IV .Q0M [facility] Rx#:[id number] Propofol 1,000 mg In 44.815 68.955 Empty Bag 1 bag @ Titrate IV .Q0M [facility] Rx#: [id number] Output: Drainage 200 60 60 Abdomen 200 60 60 Urine 620 715 60 Other: Voiding Method Indwelling Catheter Indwelling Catheter ABP, PAP, CO, CI - Last Documented Arterial Blood Pressure 87/61 - Exam Patient is intubated maintained on mechanical ventilation Head normocephalic and atraumatic Neck supple no JVD no goiter Lungs few coarse breath sounds noted at the bases Heart regular rate and rhythm S1-S2, no rub or gallop Abdomen is soft nontender nondistended positive bowel sounds no hepatosplenomegaly, patient had colostomy placement she has a J-tube drainage Extremities no edema no cyanosis or clubbing Neuro alert and orientated to [address]. Patient currently at baseline. - Labs CBC & Chem 7: 03/24/18 04:00 03/24/18 04:00 Labs: Abnormal Lab Results - Last 24 Hours (Table) 03/21/18 03/23/18 03/23/18 Range/Units 04:15 12:14 12:26 WBC (3.8-10.6) k/uL RBC (3.80-5.40) m/uL Hgb (11.4-16.0) gm/dL Hct (34.0-46.0) % RDW (11.5-15.5) % Neutrophils # (1.3-7.7) k/uL Lymphocytes # (1.0-4.8) k/uL ABG pH (7.35-7.45) ABG pCO2 (35-45) mmHg ABG pO2 (83-108) mmHg ABG HCO3 (21-25) mmol/L ABG O2 Saturation (94-97) % Sodium (137-145) mmol/L Potassium (3.5-5.1) mmol/L Chloride (98-107) mmol/L Carbon Dioxide (22-30) mmol/L BUN (7-17) mg/dL Creatinine (0.52-1.04) mg/dL Glucose (74-99) mg/dL POC Glucose (mg/dL) 124 H (75-99) mg/dL Hemoglobin A1c 6.2 H (4.0-6.0) % Calcium (8.4-10.2) mg/dL Albumin 1.4 L (3.5-5.0) g/dL Triglycerides 150 H (<150) mg/dL 03/23/18 03/23/18 03/24/18 Range/Units 17:27 23:55 04:00 WBC (3.8-10.6) k/uL RBC (3.80-5.40) m/uL Hgb (11.4-16.0) gm/dL Hct (34.0-46.0) % RDW (11.5-15.5) % Neutrophils # (1.3-7.7) k/uL Lymphocytes # (1.0-4.8) k/uL ABG pH (7.35-7.45) ABG pCO2 (35-45) mmHg ABG pO2 (83-108) mmHg ABG HCO3 (21-25) mmol/L ABG O2 Saturation (94-97) % Sodium 147 H (137-145) mmol/L Potassium 3.1 L (3.5-5.1) mmol/L Chloride 126 H (98-107) mmol/L Carbon Dioxide 18 L (22-30) mmol/L BUN 41 H (7-17) mg/dL Creatinine 1.10 H (0.52-1.04) mg/dL Glucose 163 H (74-99) mg/dL POC Glucose (mg/dL) 195 H 172 H (75-99) mg/dL Hemoglobin A1c (4.0-6.0) % Calcium 6.9 L (8.4-10.2) mg/dL Albumin (3.5-5.0) g/dL Triglycerides (<150) mg/dL 03/24/18 03/24/18 03/24/18 Range/Units 04:00 04:47 06:42 WBC 17.3 H (3.8-10.6) k/uL RBC 2.83 L (3.80-5.40) m/uL Hgb 7.2 L (11.4-16.0) gm/dL Hct 23.2 L (34.0-46.0) % RDW 16.1 H (11.5-15.5) % Neutrophils # 16.0 H (1.3-7.7) k/uL Lymphocytes # 0.7 L (1.0-4.8) k/uL ABG pH 7.48 H (7.35-7.45) ABG pCO2 26 L (35-45) mmHg ABG pO2 130 H (83-108) mmHg ABG HCO3 19 L (21-25) mmol/L ABG O2 Saturation 97.8 H (94-97) % Sodium (137-145) mmol/L Potassium (3.5-5.1) mmol/L Chloride (98-107) mmol/L Carbon Dioxide (22-30) mmol/L BUN (7-17) mg/dL Creatinine (0.52-1.04) mg/dL Glucose (74-99) mg/dL POC Glucose (mg/dL) 205 H (75-99) mg/dL Hemoglobin A1c (4.0-6.0) % Calcium (8.4-10.2) mg/dL Albumin (3.5-5.0) g/dL Triglycerides (<150) mg/dL Microbiology - Last 24 Hours (Table) 03/20/18 10:37 Urine Culture - Final Urine,Clean Catch Escherichia coli Pseudomonas aeruginosa 03/21/18 11:15 Gram Stain - Final Abdomen Wound Culture - Final Escherichia coli Pseudomonas aeruginosa Lina albicans 03/21/18 11:15 Gram Stain - Final Abdomen Wound Culture - Final Escherichia coli Pseudomonas aeruginosa Lina albicans 03/20/18 10:52 Blood Culture Gram Stain - Final Blood Blood Culture - Final Pseudomonas aeruginosa 03/21/18 19:45 Gram Stain - Final Sputum Sputum Culture - Final Lina albicans Assessment and Plan Assessment: 1. Altered mental status changes likely due to metabolic encephalopathy related to infectious processes from pneumonia and UTI and acute kidney injury. Computed tomography scan shows no acute changes 2. Possible pneumonia noted on chest x-ray. Patient currently on antibiotics Zosyn, Flagyl and Diflucan 3. UTI: Continue antibiotics. Check urine culture 4. Acute kidney injury: Likely secondary to dehydration from diuretics and diarrhea. Also a Hold hydrochlorothiazide. Continue with IV fluids. She received a bolus in the ER. Continue normal saline at 75 mL an hour. 5. Diarrhea now resolved. Her family patient having multiple loose stools daily for the last 3 weeks. Last bowel movement 2 days 6. Hypokalemia: Patient received potassium supplement 7. Anemia: Check iron studies. Check stool for occult blood. Patient reports no acute 8. Elevated troponin likely related to her acute kidney injury. Continue to monitor cardiac enzymes. Patient reports no chest pain. EKG showing sinus tachycardia with a heart rate of 104 with PVCs 9. Severe protein calorie malnutrition: Albumin 2.1. Add ensure 3 times a day with meals 10. History of rheumatoid arthritis 11. History of COPD. Stable 12. Hypothyroidism continue Synthroid. TSH 0.759 13. Sinus tachycardia likely related to dehydration. Continue IV fluids. 14. Sepsis with tachycardia and leukocytosis. Continue antibiotics and IV fluids. Lactic acid level normal. blood culture growing pseudomonas aeruginosa , abdominal culture growing Pseudomonas aeurginosa, E. coli and Lina albicans and sputum growing lina albicans. Infectious disease following. Patient currently on Diflucan, Flagyl and Zosyn 15. Complex mass in the pelvis related to the sigmoid colon patient underwent surgery with Dr. Hernandez with partial colectomy and colostomy placement patient currently postop day 3. Patient remains on mechanical ventilation. Critical care following closely. 16. Hypotension secondary to septic shock. Patient remains on Levoohed for pressure support. Dr. Moore following for critical care. Patient has been off levophed for the past few hours 17. Expected blood loss anemia secondary to surgery. Hgb 7.2. Continue to monitor closely Per critical care, tomorrow patient's family will make further decision in regards to further treatment vs. terminal wean DVT prophylaxis heparin. GI prophylaxis Protonix I performed an examination of the patient and discussed their management with the Nurse Practitioner. I have reviewed the Nurse Practitioner's notes and agree with the documented findings and plan of care
--- NOTE | 2018-03-24 11:49 | P.PN ---
Subjective Progress Note Date: 03/24/18 87-year-old female being seen in the intensive care unit. Family at bedside. Patient remains on mechanical ventilation. Has been off sedation. CPAP trial has been initiated pulmonary following. Currently will open eyes to verbal stimuli. Weight: 17.3 this morning down from 19 .2 the day before postop exploratory laparotomy with sigmoid colectomy with end colostomy, repair of incisional hernia, left saphenectomy, done for perforated rectosigmoid Objective - Vital Signs Vital signs: Vital Signs Temp 99.3 F 03/24/18 08:00 Pulse 112 H 03/24/18 11:09 Resp 22 03/24/18 10:00 BP 127/55 03/24/18 10:00 Pulse Ox 98 03/24/18 10:59 Intake & Output 03/23/18 03/24/18 03/24/18 18:59 06:59 18:59 Intake Total 2535.697 2498.330 845 Output Total 820 775 575 Balance 0763.723 8535.330 270 Weight 78.1 kg 78.5 kg Intake: IV 2263 2406 845 Dextrose 5% in Water 1, 300 000 ml @ 75 mls/hr IV . [id number] [facility] with Sodium Bicarb (1 Meq/ml) 150 ml Rx#:[id number] Fat Emulsion 20% 250 ml 210 In Empty Bag 1 bag @ 21 mls/hr IV MoWeFr [facility] Rx#: [id number] Mvi, Adult No.4 with Vit 180 360 180 K 10 ml Trace (Conc-1Ml/ Dose) 1 ml In Amino Acid 5%-D15w+Lytes*E* 1,000 ml @ 30 mls/hr IV .Q24H [facility] Rx#:[id number] Piperacillin-Tazobactam 3 100 50 .375 gm In Dextrose/Water 1 50ml.bag @ 12.5 mls/hr IVPB Q8HR [facility] Rx#: [id number] Sodium Chloride 0.9% 1, 1650 1800 150 000 ml @ 150 mls/hr IV . Q6H40M [facility] Rx#:[id number] fluconazole 100 50 metroNIDAZOLE-NS PMX 500 200 100 mg In Saline 1 100ml.bag @ 100 mls/hr IVPB Q8HR [facility] Rx#:[id number] pressure bag 33 36 15 Intake, IV Titration 272.697 92.330 Amount Norepinephrine 16 mg In 227.882 23.375 Sodium Chloride 0.9% 250 ml @ Titrate IV .Q0M [facility] Rx#:[id number] Propofol 1,000 mg In 44.815 68.955 Empty Bag 1 bag @ Titrate IV .Q0M [facility] Rx#: [id number] Output: Drainage 200 60 130 Abdomen 200 60 130 Urine 620 715 445 Other: Voiding Method Indwelling Catheter Indwelling Catheter Indwelling Catheter ABP, PAP, CO, CI - Last Documented Arterial Blood Pressure 87/61 - Exam Physical exam 87-year-old female orally intubated on vent support Lungs anterior diminished at the bases no wheezing Heart S1-S2 audible regular tachycardic heart rate 110 Abdomen ostomy no stool noted QI drain serous drainage noted surgical dressing dry nondistended indwelling Alford catheter in place not able to appreciate bowel tones nasal gastric tube in place suction scant amount of drainage. TPN progress Extremities generalized puffiness to the hands and bilateral feet Venodyne's on to the bilateral lower extremities - Labs CBC & Chem 7: 03/24/18 04:00 03/24/18 04:00 Labs: Abnormal Lab Results - Last 24 Hours (Table) 03/23/18 03/23/18 03/23/18 Range/Units 12:14 12:26 17:27 WBC (3.8-10.6) k/uL RBC (3.80-5.40) m/uL Hgb (11.4-16.0) gm/dL Hct (34.0-46.0) % RDW (11.5-15.5) % Neutrophils # (1.3-7.7) k/uL Lymphocytes # (1.0-4.8) k/uL ABG pH (7.35-7.45) ABG pCO2 (35-45) mmHg ABG pO2 (83-108) mmHg ABG HCO3 (21-25) mmol/L ABG O2 Saturation (94-97) % Sodium (137-145) mmol/L Potassium (3.5-5.1) mmol/L Chloride (98-107) mmol/L Carbon Dioxide (22-30) mmol/L BUN (7-17) mg/dL Creatinine (0.52-1.04) mg/dL Glucose (74-99) mg/dL POC Glucose (mg/dL) 124 H 195 H (75-99) mg/dL Calcium (8.4-10.2) mg/dL Albumin 1.4 L (3.5-5.0) g/dL Triglycerides 150 H (<150) mg/dL 03/23/18 03/24/18 03/24/18 Range/Units 23:55 04:00 04:00 WBC 17.3 H (3.8-10.6) k/uL RBC 2.83 L (3.80-5.40) m/uL Hgb 7.2 L (11.4-16.0) gm/dL Hct 23.2 L (34.0-46.0) % RDW 16.1 H (11.5-15.5) % Neutrophils # 16.0 H (1.3-7.7) k/uL Lymphocytes # 0.7 L (1.0-4.8) k/uL ABG pH (7.35-7.45) ABG pCO2 (35-45) mmHg ABG pO2 (83-108) mmHg ABG HCO3 (21-25) mmol/L ABG O2 Saturation (94-97) % Sodium 147 H (137-145) mmol/L Potassium 3.1 L (3.5-5.1) mmol/L Chloride 126 H (98-107) mmol/L Carbon Dioxide 18 L (22-30) mmol/L BUN 41 H (7-17) mg/dL Creatinine 1.10 H (0.52-1.04) mg/dL Glucose 163 H (74-99) mg/dL POC Glucose (mg/dL) 172 H (75-99) mg/dL Calcium 6.9 L (8.4-10.2) mg/dL Albumin (3.5-5.0) g/dL Triglycerides (<150) mg/dL 03/24/18 03/24/18 Range/Units 04:47 06:42 WBC (3.8-10.6) k/uL RBC (3.80-5.40) m/uL Hgb (11.4-16.0) gm/dL Hct (34.0-46.0) % RDW (11.5-15.5) % Neutrophils # (1.3-7.7) k/uL Lymphocytes # (1.0-4.8) k/uL ABG pH 7.48 H (7.35-7.45) ABG pCO2 26 L (35-45) mmHg ABG pO2 130 H (83-108) mmHg ABG HCO3 19 L (21-25) mmol/L ABG O2 Saturation 97.8 H (94-97) % Sodium (137-145) mmol/L Potassium (3.5-5.1) mmol/L Chloride (98-107) mmol/L Carbon Dioxide (22-30) mmol/L BUN (7-17) mg/dL Creatinine (0.52-1.04) mg/dL Glucose (74-99) mg/dL POC Glucose (mg/dL) 205 H (75-99) mg/dL Calcium (8.4-10.2) mg/dL Albumin (3.5-5.0) g/dL Triglycerides (<150) mg/dL Microbiology - Last 24 Hours (Table) 03/20/18 10:37 Urine Culture - Final Urine,Clean Catch Escherichia coli Pseudomonas aeruginosa 03/21/18 11:15 Gram Stain - Final Abdomen Wound Culture - Final Escherichia coli Pseudomonas aeruginosa Lina albicans 03/21/18 11:15 Gram Stain - Final Abdomen Wound Culture - Final Escherichia coli Pseudomonas aeruginosa Lina albicans 03/20/18 10:52 Blood Culture Gram Stain - Final Blood Blood Culture - Final Pseudomonas aeruginosa 03/21/18 19:45 Gram Stain - Final Sputum Sputum Culture - Final Lina albicans Assessment and Plan Assessment: Impression Present on admission abdominal pain nausea vomiting suspect due to a partial bowel obstruction Prior history of colon cancer with prior bowel resection Urinary tract infection present on admission Underlying history of atrial fibrillation on anticoagulation A prior history of a DVT with PE with filter placed Status post March 21 exploratory laparotomy, sigmoid colectomy with end colostomy, partial omentectomy, repair of incisional hernia, left salpingectomy , washout of peritoneal cavity with QI drains placed over the rectal stump Hypokalemia Elevated troponin likely related to acute kidney injury Severe protein calorie malnutrition Plan Advance directives indicating no CODE STATUS Continue management per the deputy county clerk Vent support per pulmonary Continue postop surgical care TPN for nutritional support IV antibiotics as ordered DVT and GI prophylaxis Will follow with you Prognosis poor await family decision possibility of withdrawal from life support The above impression and plan of care have been discussed and directed by signing physician. Gayathri Onofre nurse practitioner acting as scribe for signing physician.
[2018-03-24 12:02] LABS: Glucose,Whole Blood 238 mg/dL (75-99)
[2018-03-24] MEDS: 1: MVI, ADULT NO.4 WITH VIT K 10 ML, TRACE (CONC-1ML/DOSE) 1 ML, SODIUM ACETATE 20 MEQ i IV SCH ×4 (12:05)
[2018-03-24 18:39] LABS: Glucose,Whole Blood 286 mg/dL (75-99)
[2018-03-24] MEDS ORDERED: POTASSIUM CHLORIDE 20 MEQ in WATER FOR INJECTION 1 100ML.BAG IVPB SCH (19:00)
[2018-03-24] MEDS: HYDROmorphone 1 MG/ML 1 ML SYRINGE IVP PRN (19:06)
--- NOTE | 2018-03-24 22:38 | PN ---
PROGRESS NOTE DATE OF SERVICE: 03/24/2018. REASON FOR FOLLOWUP: 1. Secondary peritonitis from a perforated rectosigmoid. 2. Pseudomonas bacteremia. INTERVAL HISTORY: The patient is afebrile. She is hemodynamically stable. Not on any pressor support. The patient remains to be sedated, intubated on the vent and no other clinical findings change noticed by the nursing staff. PHYSICAL EXAMINATION: Blood pressure 122/52 with a pulse of 116, temperature of 99. She is 99% on 35% FiO2. General description is an elderly female, lying in bed in no distress. Respiratory system: Unlabored breathing, clear to auscultation anteriorly. Heart S1, S2. Regular rate and rhythm. Abdomen soft. Mild distention. No guarding or rigidity. Extremities: No edema of the feet. LABS: Hemoglobin 7.8, white count 17.3, white with a BUN of 41, creatinine 1.10. DIAGNOSTIC IMPRESSION AND PLAN: Patient with Pseudomonas aeruginosa bacteremia in a patient who did have a perforated sigmoid colon, status post diverting colostomy. Abdominal culture has been E coli, Pseudomonas . The patient is currently covered with Zosyn and that will be continued watching the clinical course closely. Continue supportive care. MMODL / IJN: [id number] /
[2018-03-24] MEDS: SODIUM CHLORIDE 0.45% 1,000 ML IV SCH (22:47)
[2018-03-25] MEDS: PIPERACILLIN-TAZOBACTAM 3.375 GM in DEXTROSE/WATER 1 50ML.BAG IVPB SCH ×2 (00:22→08:51)
[2018-03-25] MEDS: INSULIN ASPART 100 UNIT/ML 1 ML 10 ML VIAL SQ SCH ×3 (00:22→12:08)
[2018-03-25 00:23] LABS: Glucose,Whole Blood 229 mg/dL (75-99)
[2018-03-25] MEDS: 1: MVI, ADULT NO.4 WITH VIT K 10 ML, TRACE (CONC-1ML/DOSE) 1 ML, SODIUM ACETATE 20 MEQ i IV SCH ×4 (03:09)
[2018-03-25] MEDS: IPRATROPIUM-ALBUTEROL 3 ML NEB INHALATION SCH ×3 (03:54→11:25)
[2018-03-25] MEDS: PROPOFOL 1,000 MG in EMPTY BAG 1 BAG IV SCH (04:05)
[2018-03-25 04:32] LABS: Ionized Calcium 5.1 mg/dL (4.5-5.3)
[2018-03-25 04:37] LABS: Anisocytosis Slight; Basophils % (A) 0 %; Eosinophils # (A) 0.5 k/uL (0-0.7); Eosinophils % (A) 3 %; HCT 22.2 % (34.0-46.0); Hypochromasia Marked; Lymphocytes # (A) 0.8 k/uL (1.0-4.8); Lymphocytes % (A) 5 %; MCH 24.7 pg (25.0-35.0); MCHC 30.3 g/dL (31.0-37.0); MCV 81.5 fL (80.0-100.0); Mean Platelet Volume 8.5; Monocytes # (A) 0.2 k/uL (0-1.0); Monocytes % (A) 1 %; Neutrophils # (A) 14.5 k/uL (1.3-7.7); Neutrophils % (A) 90 %; Platelet Count 170 k/uL (150-450); RBC 2.73 m/uL (3.80-5.40); RDW 16.2 % (11.5-15.5); WBC 16.1 k/uL (3.8-10.6)
[2018-03-25 04:40] LABS: Calcium 6.8 mg/dL (8.4-10.2); Potassium 3.5 mmol/L (3.5-5.1)
[2018-03-25 05:01] LABS: HGB 6.7 gm/dL (11.4-16.0)
[2018-03-25] MEDS ORDERED: Potassium Replacement Protocol 1 EACH MISC MISCELLANE PRN (05:09)
[2018-03-25 05:19] LABS: ABG Base Excess -5.1 mmol/L; ABG HCO3 20 mmol/L (21-25); ABG Oxygen Saturation 98.3 % (94-97); ABG PCO2 31 mmHg (35-45); ABG PH 7.41 (7.35-7.45); ABG PO2 104 mmHg (83-108); ABG TCO2 21 mmol/L (19-24)
[2018-03-25 07:08] LABS: Glucose,Whole Blood 227 mg/dL (75-99)
[2018-03-25] MEDS: SODIUM CHLORIDE 0.45% 1,000 ML IV SCH ×2 (07:09→15:57)
--- NOTE | 2018-03-25 07:11 | XR ---
EXAMINATION TYPE: XR chest 1V DATE OF EXAM: 03/25/2018 COMPARISON: 03/24/2018 HISTORY: SOB, Follow Up FINDINGS: Indwelling tubes and catheters are unchanged. No change in bibasilar opacities. Stable appearance of the cardio-mediastinal structures at this time. Pleural effusion unchanged. IMPRESSION: 1. Stable portable chest. Clinical correlation and follow up until resolution is recommended.
[2018-03-25] MEDS: POTASSIUM CHLORIDE 20 MEQ in WATER FOR INJECTION 1 100ML.BAG IVPB SCH ×2 (07:31→10:14)
[2018-03-25] MEDS: metroNIDAZOLE-NS PMX 500 MG in SALINE 1 100ML.BAG IVPB SCH (07:47)
[2018-03-25] MEDS: LEVOTHYROXINE IVP 100 MCG/5 ML VIAL IV SCH (08:02)
[2018-03-25] MEDS: FLUCONAZOLE IN NACL,ISO-OSM 100 MG in SALINE 1 50ML.BAG IVPB SCH (08:02)
[2018-03-25] MEDS: HEPARIN SODIUM,PORCINE 5,000 UNIT/ML 1 ML VIAL SQ SCH (08:02)
[2018-03-25] MEDS: PANTOPRAZOLE 40 MG/10 ML VIAL IVP SCH (08:02)
[2018-03-25] MEDS: CHLORHEXIDINE GLUCONATE 15 ML CUP MUCOUS MEM SCH (08:02)
--- NOTE | 2018-03-25 08:09 | P.PN ---
Subjective Progress Note Date: 03/25/18 Principal diagnosis: Uremic encephalopathy, pneumonia, renal failure, sigmoid colectomy with colostomy Progress note dated 03/23/2018 This is a 87-year-old female who is a DO NOT RESUSCITATE, was admitted on March 20 with diagnosis of uremic encephalopathy, pneumonia, renal failure, and was found on computed tomography scan to have a complex abdominal mass. She underwent expiratory laparotomy on March 21 and had a sigmoid colectomy with colostomy. The patient is currently a DO NOT RESUSCITATE and I had a chance to talk to the family member today and we are going to give her a total Friday or so to see whether or not she is able to be extubated. Currently on the ventilator on the volume assist control mode with a rate of 12, tidal volume of 400, FiO2 40% PEEP of 5. Arterial blood gases show a PaO2 of 103 a PaCO2 of 28 and a pH 7.47. She's also receiving a saline IV at 1 50 mL an hour norepinephrine at 8 mcg/m and propofol at 25 mics per kilogram per minute. The patient will possibly be started on TPN today. We will do a daily eruption of sedation. We did make some vent changes increasing the rate 18, decreasing the volume to 350 and decreasing the FiO2 35%. Chest x-ray shows a possible infiltrate in the right lower lobe and small bilateral effusions. Her overall prognosis is very poor. Progress note dated 03/24/2018 87-year-old female who is a DO NOT RESUSCITATE patient. The patient was admitted on March 20 with a diagnosis of uremic encephalopathy, pneumonia, renal failure, and was found on computed tomography scan to have a complex abdominal mass. She underwent exploratory laparotomy on March 21 and had a sigmoid colectomy with colostomy. I did have a chance to speak to the daughter yesterday. By Friday, she'll make some sort of decision about the possibility of withdrawal from life support but apparently mom would not have wanted to be on life support. Currently she remains on the ventilator. Yesterday, she spent pretty much all day on PSV of 10 and CPAP of 5. Currently she is on the volume assist control mode rate of 18, tidal volume of 350, FiO2 35% and a PEEP of 5. Arterial blood gases show a PaO2 of 130, a PaCO2 26 and a pH of 7.48. The patient's on saline at 1 50 mL an hour. Norepinephrine is been turned off. She's getting a sedation holiday. Propofol is off. She is at TPN at 30 mL an hour. She is a DO NOT RESUSCITATE as mentioned. Chest x- rays essentially unchanged. She's got some infiltrate or atelectasis at the lower lobes and small effusions. Labs, x-rays and medications all reviewed. Progress note dated 03/25/2018 87-year-old female is a DO NOT RESUSCITATE patient. The patient was admitted back on March 20 with a diagnosis of uremic encephalopathy, pneumonia, renal fire, and on computed tomography scan was found to have a complex abdominal mass. On March 21, she went underwent an exploratory laparotomy with sigmoid colectomy and colostomy. Pathology is still pending. I did have a long talk with her daughter a couple days back. Today they said they were to make a decision about mom. They're inclined to withdraw life support his apparently she would never have wanted this. The patient's overall status and situation has not improved any great extent. In fact, she became hypotensive and required a small amount of norepinephrine. Chest x-ray is stable. Currently, she is on the volume assist control mode rate of 18, her tidal volume is 350 mL, FiO2 35% and PEEP of 5. Arterial blood gases show a PaO2 of 104 PaCO2 31 and a pH of 7.4. The patient's on half-normal saline at 100 mL an hour, TPN at 83 mL now her and norepinephrine at 2 mcg/m. The patient is a DO NOT RESUSCITATE. Wound cultures have been positive for E. coli lina and pseudomonas aeruginosa. Blood cultures have been positive for pseudomonas aeruginosa and urine cultures positive for E. coli and pseudomonas aeruginosa. She is currently not on any sedation and is poorly responsive. Objective - Vital Signs Vital signs: Vital Signs Temp 98.9 F 03/25/18 04:00 Pulse 108 H 03/25/18 07:39 Resp 25 H 03/25/18 07:00 BP 99/50 03/25/18 07:00 Pulse Ox 98 03/25/18 07:00 Intake & Output 03/24/18 03/25/18 03/25/18 18:59 06:59 18:59 Intake Total 1508 2255.422 213.888 Output Total 1270 975 75 Balance 238 1280.422 138.888 Weight 79.6 kg Intake: IV 1508 2096 183 Dextrose 5% in Water 1, 300 000 ml @ 75 mls/hr IV . [id number] [facility] with Sodium Bicarb (1 Meq/ml) 150 ml Rx#:[id number] Mvi, Adult No.4 with Vit 678 996 83 K 10 ml Trace (Conc-1Ml/ Dose) 1 ml In Amino Acid 5%-D15w+Lytes*E* 1,000 ml @ 30 mls/hr IV .Q24H [facility] Rx#:[id number] Piperacillin-Tazobactam 3 100 .375 gm In Dextrose/Water 1 50ml.bag @ 12.5 mls/hr IVPB Q8HR [facility] Rx#: [id number] Sodium Chloride 0.45% 1, 1100 100 000 ml @ 100 mls/hr IV . Q10H [facility] Rx#:[id number] Sodium Chloride 0.9% 1, 150 000 ml @ 150 mls/hr IV . Q6H40M [facility] Rx#:[id number] fluconazole 50 metroNIDAZOLE-NS PMX 500 200 mg In Saline 1 100ml.bag @ 100 mls/hr IVPB Q8HR [facility] Rx#:[id number] pressure bag 30 0 Intake, IV Titration 159.422 30.888 Amount Norepinephrine 16 mg In 0 30.888 Sodium Chloride 0.9% 250 ml @ Titrate IV .Q0M [facility] Rx#:[id number] Propofol 1,000 mg In 59.422 Empty Bag 1 bag @ Titrate IV .Q0M [facility] Rx#: [id number] Sodium Chloride 0.45% 1, 100 000 ml @ 100 mls/hr IV . Q10H [facility] Rx#:[id number] Output: Drainage 300 260 Abdomen 300 260 Urine 970 715 75 Other: Voiding Method Indwelling Catheter Indwelling Catheter ABP, PAP, CO, CI - Last Documented Arterial Blood Pressure 87/61 - Exam No acute distress, poorly responsive, with an orally placed endotracheal tube and NG tube. HEENT examination is grossly unremarkable. Mucous membranes are moist. Neck supple. Full range of motion. No adenopathy thyromegaly or neck vein distention. Cardiovascular examination reveals regular rhythm rate. S1-S2 normal. No S3 or S4. No discernible murmur noted. Heart sounds are distant. Heart rate is 80. Lungs reveal bilateral rhonchi and crackles. No wheezes. Breath sounds diminished throughout. Breath sounds are equal bilaterally.. Abdomen soft bowel sounds are heard. No masses or tenderness. Colostomy is noted. Extremities are intact. No cyanosis clubbing or edema. Skin is without rash or lesion. Neurologic examination could not be performed as the patient's mental status is very poor. - Labs CBC & Chem 7: 03/25/18 04:10 03/25/18 04:10 Labs: Abnormal Lab Results - Last 24 Hours (Table) 03/24/18 03/24/18 03/24/18 Range/Units 04:47 12:00 18:36 WBC (3.8-10.6) k/uL RBC (3.80-5.40) m/uL Hgb (11.4-16.0) gm/dL Hct (34.0-46.0) % MCH (25.0-35.0) pg MCHC (31.0-37.0) g/dL RDW (11.5-15.5) % Neutrophils # (1.3-7.7) k/uL Lymphocytes # (1.0-4.8) k/uL ABG pH 7.48 H (7.35-7.45) ABG pCO2 26 L (35-45) mmHg ABG pO2 130 H (83-108) mmHg ABG HCO3 19 L (21-25) mmol/L ABG O2 Saturation 97.8 H (94-97) % Sodium (137-145) mmol/L Chloride (98-107) mmol/L Carbon Dioxide (22-30) mmol/L BUN (7-17) mg/dL Glucose (74-99) mg/dL POC Glucose (mg/dL) 238 H 286 H (75-99) mg/dL Calcium (8.4-10.2) mg/dL 03/25/18 03/25/18 03/25/18 Range/Units 00:21 04:10 04:10 WBC 16.1 H (3.8-10.6) k/uL RBC 2.73 L (3.80-5.40) m/uL Hgb 6.7 L* (11.4-16.0) gm/dL Hct 22.2 L (34.0-46.0) % MCH 24.7 L (25.0-35.0) pg MCHC 30.3 L (31.0-37.0) g/dL RDW 16.2 H (11.5-15.5) % Neutrophils # 14.5 H (1.3-7.7) k/uL Lymphocytes # 0.8 L (1.0-4.8) k/uL ABG pH (7.35-7.45) ABG pCO2 (35-45) mmHg ABG pO2 (83-108) mmHg ABG HCO3 (21-25) mmol/L ABG O2 Saturation (94-97) % Sodium 146 H (137-145) mmol/L Chloride 122 H (98-107) mmol/L Carbon Dioxide 21 L (22-30) mmol/L BUN 34 H (7-17) mg/dL Glucose 171 H (74-99) mg/dL POC Glucose (mg/dL) 229 H (75-99) mg/dL Calcium 6.8 L (8.4-10.2) mg/dL 03/25/18 03/25/18 Range/Units 05:14 07:07 WBC (3.8-10.6) k/uL RBC (3.80-5.40) m/uL Hgb (11.4-16.0) gm/dL Hct (34.0-46.0) % MCH (25.0-35.0) pg MCHC (31.0-37.0) g/dL RDW (11.5-15.5) % Neutrophils # (1.3-7.7) k/uL Lymphocytes # (1.0-4.8) k/uL ABG pH (7.35-7.45) ABG pCO2 31 L (35-45) mmHg ABG pO2 (83-108) mmHg ABG HCO3 20 L (21-25) mmol/L ABG O2 Saturation 98.3 H (94-97) % Sodium (137-145) mmol/L Chloride (98-107) mmol/L Carbon Dioxide (22-30) mmol/L BUN (7-17) mg/dL Glucose (74-99) mg/dL POC Glucose (mg/dL) 227 H (75-99) mg/dL Calcium (8.4-10.2) mg/dL Microbiology - Last 24 Hours (Table) 03/21/18 11:15 Anaerobic Culture - Final Abdomen Anaerobic Gm Negative Bacilli Anaerobic Gm Negative Bacilli#2 03/21/18 11:15 Anaerobic Culture - Preliminary Abdomen Anaerobic Gm Negative Bacilli Anaerobic Gm Positive Bacill 03/20/18 10:37 Urine Culture - Final Urine,Clean Catch Escherichia coli Pseudomonas aeruginosa Assessment and Plan Assessment: Assessment Postop day #4, status post exploratory laparotomy with sigmoid colectomy and colostomy. There is also repair of an incisional hernia and left salpingectomy and wash out of the peritoneal cavity. 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 coli urinary tract infection Possible fungemia Plan: Plan dated 03/23/2018 The patient was placed on PSV of 10 and CPAP of 5. With that, her respiratory rates were in the mid 20s and tidal volumes are in the 4-500 range. We'll maintain her on that for the present time. I did have a chance to speak to the family. Patient is a DO NOT RESUSCITATE. By Friday, we'll make a further decision about what to do next. This is a woman who probably would not have wanted to be on mechanical ventilation according to family members. She remains on norepinephrine. We've given her a sedation holiday. She's getting saline IV at 1 50 mL an hour. Arterial blood gases are reasonable. Vent changes were made. There are gram-negative bacilli and the abdominal cultures. In addition the blood cultures were positive for pseudomonas aeruginosa. The urine cultures were positive for gram-negative bacilli. White blood count is 19.2 hemoglobin 7.5 hematocrit 24.7 and platelet count 227,000. Sodium 147 potassium 4 chloride is 124 CO2 19 with a normal anion gap. BUN and creatinine were 53 and 1.30. The patient's prognosis is poor. The family knows time. Possible terminal extubation on Friday. The beta ghislaine was discontinued given the patient being on norepinephrine. We'll see if we can consolidate some of the antibiotics. Critical care time 35 minutes Plan dated 03/24/2018 Arterial blood gases are reasonable. The patient will again be placed on PSV 10 and CPAP 5. The norepinephrine has been weaned off. She is on a sedation holiday. She is receiving TPN at 30 mL an hour. He is also getting saline at 150 mL an hour. Labs x-rays a medications are all reviewed. White count is 17.3, hemoglobin 7.2, hematocrit 23.2 and platelet count 204,000. Sodium is 147 potassium 3.1 chloride 126 CO2 18 anion gap is 3 BUN and creatinine were 41 and 1.10 respectively. Saline IV will be converted to dextrose at the same rate. The patient is a DO NOT RESUSCITATE. The family will make some additional decisions by Friday. Prognosis is very poor. Given her age and her plethora of medical problems including the recent surgery, her outlook is dismal. The path report from the surgery is still pending. Certainly cancer is what our concern is. Additional recommendations and suggestions are forthcoming. All medications are reviewed. Critical care time 34 minutes Plan dated 03/25/2018 Currently, the patient is a DO NOT RESUSCITATE. She remains on the ventilator. It's doubtful because of her poor mental status and poor overall condition that she could be weaned from mechanical ventilation. She is receiving TPN. She became hypotensive last night and required some norepinephrine. We will see if we can wean that off. Her microbiologic sampling is quite impressive with pseudomonas and E. coli in the urine pseudomonas aeruginosa in the blood and E. coli Pseudomonas and Lina in the wound cultures. Chest x-ray is unchanged. White count is 16.1 hemoglobin 6.7 hematocrit 22.2 and platelet count 170,000. Arterial blood gases show a mixed acid-base disturbance with a combined respiratory alkalosis and mild metabolic acidosis as the pH is normal. Sodium is 146 potassium 3.5 chloride 122 CO2 21 anion gap normal BUN 34 and creatinine 0.92. Prognosis is very poor. I have another conversation with the daughter today. Additional recommendations suggestions are forthcoming. She is inclined to withdraw life support. I think that would be the right decision in this case. Critical care time 33 minutes Time with Patient: Greater than 30
--- NOTE | 2018-03-25 09:27 | CDI ---
Last Revision, May 2017 Documentation Clarification Form Date: 03/25/2018 8:51:00 AM From: Katrin Parks RN, CCDS Admit Date: 03/20/2018 1:21:00 PM Patient Name: Camelia Olvera Visit Number: [id number] ATTENTION: The Clinical Documentation Specialists (CDI) and [facility] Coding Staff appreciate your assistance in clarifying documentation. Please respond to the clarification below the line at the bottom and electronically sign. The CDI & [facility] Coding staff will review the response and follow-up if needed. Please note: Queries are made part of the Legal Health Record. If you have any questions, please contact the author of this message via ITS. Dr. Fontana The patient is now >48hrs post-op and still maintained on the ventilator, please provide further clarification of associated condition History/Risk Factors: Sepsis with septic shock this admission, Blood/Urine/Wound Cx + for pseudomonas and E.coli, age, RA Tobacco use: current smoker Clinical Indicators: 03/25 Pulmonary Progress Note: " Post-op vent management, P-op day 4 s/p exploratory lap with sigmoid colectomy and end colostomy, repair of incisional hernia and left salpingectomy and wash out of peritoneal cavity." Admission Vital signs: 98.7, hr 112, RR 16, B/P 146/67, spo2 92% ra Current Pulse oximetry: 97% 40% FIO2 MV 03/25 Pulmonary Lung/Breathing assessment: "Lungs reveal bilateral rhonchi and crackles. No wheezes. Breath sounds diminished throughout. Breath sounds are equal bilaterally." 03/25 ABG/CBG: pH 7.41 pCO2 31 pO2 104 pHCO3 20 Lactate -5.1 Treatment: Breathing TX: Duoneb INH Q 4 Continuous Pulse ox per ICU protocol Vent: pt has been maintained on the vent since OR since 03/21 O2 weaned down from 100% to 40% In your professional opinion, can you please clarify if these findings signify one of the following conditions? Acuity: Acute Chronic Acute on Chronic Specificity: Respiratory Failure, further specify and identify underlying causes (if known): With hypercapnia? With hypoxia? Other Diagnosis, please specify Unable to determine Please continue to document in your progress notes and discharge summary in order to capture severity of illness and risk of mortality. Include clinical findings that support your diagnosis. MTDD
--- NOTE | 2018-03-25 09:49 | CDI ---
Last Revision, May 2017 Documentation Clarification Form Date: 03/25/2018 9:27:48 AM From: Katrin Parks RN, CCDS Admit Date: 03/20/2018 1:21:00 PM Patient Name: Camelia Olvera Visit Number: [id number] ATTENTION: The Clinical Documentation Specialists (CDI) and [facility] Coding Staff appreciate your assistance in clarifying documentation. Please respond to the clarification below the line at the bottom and electronically sign. The CDI & [facility] Coding staff will review the response and follow-up if needed. Please note: Queries are made part of the Legal Health Record. If you have any questions, please contact the author of this message via ITS. Rachel Wilburn MD Pneumonia was documented in EC, H&P, Consults, & progress notes. History/Risk Factors: Smoker, Sepsis with septic shock this admission, p-op day 4 s/p colectomy w colostomy maintained on ventilator, UTI Clinical Indicators: 03/25 Pulmonary Progress Notes: "Uremic encephalopathy, pneumonia, renal failure , sigmoid colectomy with colostomy." 03/24 Attending Progress Notes: "Altered mental status changes likely due to metabolic encephalopathy related to infectious processes from pneumonia and UTI and acute kidney injury." WBC: 19/21.6/22.6/19.2/17.3/16.1 Left shift: 18.3/21.1/21.8/16/14.5 03/24 CXR: "Basilar atelectasis versus edema and associated effusions, correlate to exclude pneumonia." 03/25 Pulmonary Lung/Breathing assessment:"Lungs reveal bilateral rhonchi and crackles. No wheezes. Breath sounds diminished throughout. Breath sounds are equal bilaterally." Treatment: Antibiotics: Zithromax 500mg IVP x 1 dose, Rocephin 1 gm IVPB q 24 hrs, PTD IVPB vancomycin O2: room air on admission, increased to 2-4L NC, on the vent post-operatively weaned from 100% FIO2 to 40% FIO2 Breathing TX: Duoneb Q 4 hrs In order to capture the severity of condition, please clarify if the condition signifies and you are treating for: Aspiration Pneumonia, identify if: Due to solids or liquids Bacterial Pneumonia, specify causal organism (if known) Gram Negative Pneumonia Due to Strep Due to Staph Due to E. coli Other bacteria (please specify) Other, please specify Unable to determine Please continue to document in your progress notes and discharge summary in order to capture severity of illness and risk of mortality. Include clinical findings that support your diagnosis. Bacteria pneumonia unable to determine MTDD
[2018-03-25 11:49] LABS: Glucose,Whole Blood 181 mg/dL (75-99)
--- NOTE | 2018-03-25 12:13 | P.PN ---
Subjective Progress Note Date: 03/25/18 This is a 87-year-old female, patient of Dr. Solares. She has a known past medical history of hypothyroidism, hyperlipidemia, rheumatoid arthritis and COPD. Patient is still smoking she is working on quitting she's down to 3 cigarettes a day. Patient presents to the emergency room via EMS due to altered mental status changes. Family is now at bedside. Yjflfgrh-yl-ikn reports that her zbsytx-ng-iqg has been more confused over the last couple a days. Prior to that she was having diarrhea for the past 3 weeks. They treated this at home with yogurt. Patient had been 2 days without a stool. Patient does report cough that is productive. She was found have evidence of pneumonia and UTI. Has been started on Rocephin and azithromycin in the ER. Also evidence of acute kidney injury creatinine elevated at 1.97. Diuretics have been placed on hold she's getting IV fluids. White count elevated at 19 hemoglobin down at 9.8 platelets 528 potassium 2.7 troponin elevated 0.055 possibly related to her acute kidney injury. Chest x-ray showing pulmonary venous Congestion and basilar atelectasis or infiltrate. Computed tomography scan of the brain showed no acute changes. EKG had shown sinus tachycardia with a heart rate of 104 with PVCs right bundle branch block and left anterior fascicular block. EMS had reported patient to be tachycardic and hypotensive. Blood pressures are now stable. Again note that the hydrochlorothiazide has been placed on hold. Discontinued the azithromycin due to its interaction with the Risperdal which she takes in the evening. At this time we'll continue with Rocephin. Patient denies any chest pain or shortness of breath. Denies any nausea or vomiting. Bowel movements have improved. Denies any burning with urination or frequency or urgency. Patient does live with vkfkrmhe-pu-kkx at home. Baseline mentation is usually alert and orientated to name and place. On 03/21/2018 patient was seen and examined in the intensive care unit she is intubated sedated maintained on mechanical ventilation she is maintained on IV pressors she just returned from operating room she underwent exploratory laparotomy with sigmoid colectomy with end colostomy. On 03/22/2018 patient seen and examined in intensive care unit she remains intubated sedated and maintained on mechanical ventilation her urine output is marginal, white blood count is 22.6 hemoglobin 8.2 03/23/2018 patient remains in the intensive care unit requiring intubation and sedation. Patient is currently postop day 2 exploratory lap with sigmoid colectomy. Hemoglobin is 7.5. White blood cell trending down to 19.2. On 03/24/2018 patient remains on mechanical ventilation and in the intensive care unit. Patient is currently postop day 3 from exploratory lap with sigmoid colectomy. Per nursing staff patient has been off sedation and following some commands. CPAP trial will be initiated. WBC 17.3. On 03/25/2018 patient remains on mechanical ventilation in the intensive care unit. Patient is postop day 4 from exploratory lap with sigmoid colectomy. Awaiting family decision on further treatment for his comfort care. [facility] care team following patient closely. Objective - Vital Signs Vital signs: Vital Signs Temp 97.6 F 03/25/18 08:00 Pulse 124 H 03/25/18 11:47 Resp 28 H 03/25/18 11:30 BP 113/57 03/25/18 11:30 Pulse Ox 98 03/25/18 11:30 Intake & Output 03/24/18 03/25/18 03/25/18 18:59 06:59 18:59 Intake Total 1508 2255.422 1145.888 Output Total 1270 975 655 Balance 238 1280.422 490.888 Weight 79.6 kg Intake: IV 1508 2096 1115 Dextrose 5% in Water 1, 300 000 ml @ 75 mls/hr IV . [id number] HER[facility] with Sodium Bicarb (1 Meq/ml) 150 ml Rx#:[id number] Mvi, Adult No.4 with Vit 678 996 415 K 10 ml Trace (Conc-1Ml/ Dose) 1 ml In Amino Acid 5%-D15w+Lytes*E* 1,000 ml @ 30 mls/hr IV .Q24H ONE Rx#:[id number] Piperacillin-Tazobactam 3 100 50 .375 gm In Dextrose/Water 1 50ml.bag @ 12.5 mls/hr IVPB Q8HR [facility] Rx#: [id number] Sodium Chloride 0.45% 1, 1100 500 000 ml @ 100 mls/hr IV . Q10H [facility] Rx#:[id number] Sodium Chloride 0.9% 1, 150 000 ml @ 150 mls/hr IV . Q6H40M [facility] Rx#:[id number] fluconazole 50 50 metroNIDAZOLE-NS PMX 500 200 100 mg In Saline 1 100ml.bag @ 100 mls/hr IVPB Q8HR [facility] Rx#:[id number] pressure bag 30 0 Intake, IV Titration 159.422 30.888 Amount Norepinephrine 16 mg In 0 30.888 Sodium Chloride 0.9% 250 ml @ Titrate IV .Q0M [facility] Rx#:[id number] Propofol 1,000 mg In 59.422 Empty Bag 1 bag @ Titrate IV .Q0M [facility] Rx#: [id number] Sodium Chloride 0.45% 1, 100 000 ml @ 100 mls/hr IV . Q10H [facility] Rx#:[id number] Output: Drainage 300 260 180 Abdomen 300 260 180 Urine 970 715 475 Other: Voiding Method Indwelling Catheter Indwelling Catheter Indwelling Catheter ABP, PAP, CO, CI - Last Documented Arterial Blood Pressure 87/61 - Exam Patient is intubated maintained on mechanical ventilation Head normocephalic and atraumatic Neck supple no JVD no goiter Lungs few coarse breath sounds noted at the bases Heart regular rate and rhythm S1-S2, no rub or gallop Abdomen is soft nontender nondistended positive bowel sounds no hepatosplenomegaly, patient had colostomy placement she has a J-tube drainage Extremities no edema no cyanosis or clubbing Neuro alert and orientated to [address]. Patient currently at baseline. - Labs CBC & Chem 7: 03/25/18 04:10 03/25/18 04:10 Labs: Abnormal Lab Results - Last 24 Hours (Table) 03/24/18 03/25/18 03/25/18 Range/Units 18:36 00:21 04:10 WBC (3.8-10.6) k/uL RBC (3.80-5.40) m/uL Hgb (11.4-16.0) gm/dL Hct (34.0-46.0) % MCH (25.0-35.0) pg MCHC (31.0-37.0) g/dL RDW (11.5-15.5) % Neutrophils # (1.3-7.7) k/uL Lymphocytes # (1.0-4.8) k/uL ABG pCO2 (35-45) mmHg ABG HCO3 (21-25) mmol/L ABG O2 Saturation (94-97) % Sodium 146 H (137-145) mmol/L Chloride 122 H (98-107) mmol/L Carbon Dioxide 21 L (22-30) mmol/L BUN 34 H (7-17) mg/dL Glucose 171 H (74-99) mg/dL POC Glucose (mg/dL) 286 H 229 H (75-99) mg/dL Calcium 6.8 L (8.4-10.2) mg/dL Crossmatch 03/25/18 03/25/18 03/25/18 Range/Units 04:10 05:14 06:43 WBC 16.1 H (3.8-10.6) k/uL RBC 2.73 L (3.80-5.40) m/uL Hgb 6.7 L* (11.4-16.0) gm/dL Hct 22.2 L (34.0-46.0) % MCH 24.7 L (25.0-35.0) pg MCHC 30.3 L (31.0-37.0) g/dL RDW 16.2 H (11.5-15.5) % Neutrophils # 14.5 H (1.3-7.7) k/uL Lymphocytes # 0.8 L (1.0-4.8) k/uL ABG pCO2 31 L (35-45) mmHg ABG HCO3 20 L (21-25) mmol/L ABG O2 Saturation 98.3 H (94-97) % Sodium (137-145) mmol/L Chloride (98-107) mmol/L Carbon Dioxide (22-30) mmol/L BUN (7-17) mg/dL Glucose (74-99) mg/dL POC Glucose (mg/dL) (75-99) mg/dL Calcium (8.4-10.2) mg/dL Crossmatch See Detail 03/25/18 03/25/18 Range/Units 07:07 11:38 WBC (3.8-10.6) k/uL RBC (3.80-5.40) m/uL Hgb (11.4-16.0) gm/dL Hct (34.0-46.0) % MCH (25.0-35.0) pg MCHC (31.0-37.0) g/dL RDW (11.5-15.5) % Neutrophils # (1.3-7.7) k/uL Lymphocytes # (1.0-4.8) k/uL ABG pCO2 (35-45) mmHg ABG HCO3 (21-25) mmol/L ABG O2 Saturation (94-97) % Sodium (137-145) mmol/L Chloride (98-107) mmol/L Carbon Dioxide (22-30) mmol/L BUN (7-17) mg/dL Glucose (74-99) mg/dL POC Glucose (mg/dL) 227 H 181 H (75-99) mg/dL Calcium (8.4-10.2) mg/dL Crossmatch Microbiology - Last 24 Hours (Table) 03/21/18 11:15 Anaerobic Culture - Final Abdomen Anaerobic Gm Negative Bacilli Anaerobic Gm Negative Bacilli#2 03/21/18 11:15 Anaerobic Culture - Preliminary Abdomen Anaerobic Gm Negative Bacilli Anaerobic Gm Positive Bacill 03/20/18 10:37 Urine Culture - Final Urine,Clean Catch Escherichia coli Pseudomonas aeruginosa Assessment and Plan Assessment: 1. Altered mental status changes likely due to metabolic encephalopathy related to infectious processes from pneumonia and UTI and acute kidney injury. Computed tomography scan shows no acute changes 2. Possible pneumonia noted on chest x-ray. Patient currently on antibiotics Zosyn, Flagyl and Diflucan 3. UTI: Continue antibiotics. Urine culture showing E. coli and Pseudomonas aeruginosa 4. Acute kidney injury: Likely secondary to dehydration from diuretics and diarrhea. Also a Hold hydrochlorothiazide. Continue with IV fluids. She received a bolus in the ER. Continue normal saline at 75 mL an hour. 5. Diarrhea now resolved. Her family patient having multiple loose stools daily for the last 3 weeks. Last bowel movement 2 days 6. Hypokalemia: Patient received potassium supplement 7. Anemia: Check iron studies. Check stool for occult blood. Patient reports no acute 8. Elevated troponin likely related to her acute kidney injury. Continue to monitor cardiac enzymes. Patient reports no chest pain. EKG showing sinus tachycardia with a heart rate of 104 with PVCs 9. Severe protein calorie malnutrition: Albumin 2.1. Add ensure 3 times a day with meals 10. History of rheumatoid arthritis 11. History of COPD. Stable 12. Hypothyroidism continue Synthroid. TSH 0.759 13. Sinus tachycardia likely related to dehydration. Continue IV fluids. 14. Sepsis with tachycardia and leukocytosis. Continue antibiotics and IV fluids. Lactic acid level normal. blood culture growing pseudomonas aeruginosa , abdominal culture growing Pseudomonas aeurginosa, E. coli and Lina albicans and sputum growing lina albicans. Infectious disease following. Patient currently on Diflucan, Flagyl and Zosyn 15. Complex mass in the pelvis related to the sigmoid colon patient underwent surgery with Dr. Hernandez with partial colectomy and colostomy placement patient currently postop day 4. Patient remains on mechanical ventilation. Critical care following closely. 16. Hypotension secondary to septic shock. Patient remains on Levoohed for pressure support. Dr. Moore following for critical care. Patient has been off levophed for the past few hours 17. Expected blood loss anemia secondary to surgery. Hgb 7.2. Continue to monitor closely Awaiting family decision decision in regards to further treatment vs. comfort care DVT prophylaxis heparin. GI prophylaxis Protonix I performed an examination of the patient and discussed their management with the Nurse Practitioner. I have reviewed the Nurse Practitioner's notes and agree with the documented findings and plan of care
--- NOTE | 2018-03-25 13:12 | PN ---
PROGRESS NOTE DATE OF SERVICE: 03/25/2018 REASON FOR FOLLOWUP: Abdominal sepsis with bacteremia. INTERVAL HISTORY: The patient is currently afebrile. She is hemodynamically stable, not on pressor support. The patient remains to be intubated on the vent. No other changes have been noticed by the nursing staff. PHYSICAL EXAMINATION: Blood pressure is 119/60 with a pulse of 90, temperature 98.9, she is 95% in 85% FiO2. General description is an elderly female, lying in bed in no distress. RESPIRATORY SYSTEM: Unlabored breathing, clear to auscultation anteriorly. HEART: S1, S2. Regular rate and rhythm. ABDOMEN: Soft, mildly tender. No guarding or rigidity. EXTREMITIES: No edema of the feet. LABS: Hemoglobin 6.7, white count of 16.1. BUN of 34, creatinine 0.92. Abdominal culture with E coli, Pseudomonas aeruginosa, Lina albicans with Pseudomonas bacteremia. DIAGNOSTIC IMPRESSION AND PLAN: Patient with abdominal sepsis from a perforated sigmoid, status post laparotomy and diverting colostomy. Patient is on the Zosyn that will be continued. Per the RN, patient may be switched to comfort or hospice care. If that is the case, antibiotic can be safely discontinued. Continue supportive care. MMODL / IJN: [id number] /
[2018-03-25 14:05] LABS: Magnesium 1.9 mg/dL (1.6-2.3)
--- NOTE | 2018-03-25 14:52 | P.PN ---
Subjective Progress Note Date: 03/25/18 87-year-old female on vent support does not open eyes to verbal stimuli currently no sedation no family at bedside patient is a DO NOT RESUSCITATE nursing reports the family has made a decision for patient to become comfort care to withdrawal from life support overall prognosis poor wound cultures and positive for E. coli and Lina pseudomonas postop exploratory laparotomy with sigmoid colectomy with end colostomy, repair of incisional hernia, left saphenectomy, done for perforated rectosigmoid Objective - Vital Signs Vital signs: Vital Signs Temp 98.9 F 03/25/18 12:00 Pulse 121 H 03/25/18 13:45 Resp 23 03/25/18 13:45 BP 119/57 03/25/18 13:45 Pulse Ox 97 03/25/18 13:45 Intake & Output 03/24/18 03/25/18 03/25/18 18:59 06:59 18:59 Intake Total 1508 2255.422 1345.888 Output Total 1270 975 935 Balance 238 1280.422 410.888 Weight 79.6 kg Intake: IV 1508 2096 1315 Dextrose 5% in Water 1, 300 000 ml @ 75 mls/hr IV . [id number] [facility] with Sodium Bicarb (1 Meq/ml) 150 ml Rx#:[id number] Mvi, Adult No.4 with Vit 678 996 415 K 10 ml Trace (Conc-1Ml/ Dose) 1 ml In Amino Acid 5%-D15w+Lytes*E* 1,000 ml @ 30 mls/hr IV .Q24H [facility] Rx#:[id number] Piperacillin-Tazobactam 3 100 50 .375 gm In Dextrose/Water 1 50ml.bag @ 12.5 mls/hr IVPB Q8HR [facility] Rx#: [id number] Sodium Chloride 0.45% 1, 1100 700 000 ml @ 100 mls/hr IV . Q10H [facility] Rx#:[id number] Sodium Chloride 0.9% 1, 150 000 ml @ 150 mls/hr IV . Q6H40M [facility] Rx#:[id number] fluconazole 50 50 metroNIDAZOLE-NS PMX 500 200 100 mg In Saline 1 100ml.bag @ 100 mls/hr IVPB Q8HR [facility] Rx#:[id number] pressure bag 30 0 Intake, IV Titration 159.422 30.888 Amount Norepinephrine 16 mg In 0 30.888 Sodium Chloride 0.9% 250 ml @ Titrate IV .Q0M [facility] Rx#:[id number] Propofol 1,000 mg In 59.422 Empty Bag 1 bag @ Titrate IV .Q0M [facility] Rx#: [id number] Sodium Chloride 0.45% 1, 100 000 ml @ 100 mls/hr IV . Q10H [facility] Rx#:[id number] Output: Drainage 300 260 340 Abdomen 300 260 340 Urine 970 715 595 Other: Voiding Method Indwelling Catheter Indwelling Catheter Indwelling Catheter ABP, PAP, CO, CI - Last Documented Arterial Blood Pressure 87/61 - Exam Physical exam 87-year-old female orally intubated on vent support does not open eyes to verbal stimuli Lungs anterior diminished at the bases no wheezing Heart S1-S2 audible regular tachycardic Abdomen ostomy no stool noted QI drain serous drainage noted surgical dressing dry nondistended indwelling Alford catheter in place not able to appreciate bowel tones nasal gastric tube in place suction scant amount of drainage. TPN progress Extremities generalized puffiness to the hands and bilateral feet Venodyne's on to the bilateral lower extremities - Labs CBC & Chem 7: 03/25/18 04:10 03/25/18 04:10 Labs: Abnormal Lab Results - Last 24 Hours (Table) 03/24/18 03/25/18 03/25/18 Range/Units 18:36 00:21 04:10 WBC (3.8-10.6) k/uL RBC (3.80-5.40) m/uL Hgb (11.4-16.0) gm/dL Hct (34.0-46.0) % MCH (25.0-35.0) pg MCHC (31.0-37.0) g/dL RDW (11.5-15.5) % Neutrophils # (1.3-7.7) k/uL Lymphocytes # (1.0-4.8) k/uL ABG pCO2 (35-45) mmHg ABG HCO3 (21-25) mmol/L ABG O2 Saturation (94-97) % Sodium 146 H (137-145) mmol/L Chloride 122 H (98-107) mmol/L Carbon Dioxide 21 L (22-30) mmol/L BUN 34 H (7-17) mg/dL Glucose 171 H (74-99) mg/dL POC Glucose (mg/dL) 286 H 229 H (75-99) mg/dL Calcium 6.8 L (8.4-10.2) mg/dL Crossmatch 03/25/18 03/25/18 03/25/18 Range/Units 04:10 05:14 06:43 WBC 16.1 H (3.8-10.6) k/uL RBC 2.73 L (3.80-5.40) m/uL Hgb 6.7 L* (11.4-16.0) gm/dL Hct 22.2 L (34.0-46.0) % MCH 24.7 L (25.0-35.0) pg MCHC 30.3 L (31.0-37.0) g/dL RDW 16.2 H (11.5-15.5) % Neutrophils # 14.5 H (1.3-7.7) k/uL Lymphocytes # 0.8 L (1.0-4.8) k/uL ABG pCO2 31 L (35-45) mmHg ABG HCO3 20 L (21-25) mmol/L ABG O2 Saturation 98.3 H (94-97) % Sodium (137-145) mmol/L Chloride (98-107) mmol/L Carbon Dioxide (22-30) mmol/L BUN (7-17) mg/dL Glucose (74-99) mg/dL POC Glucose (mg/dL) (75-99) mg/dL Calcium (8.4-10.2) mg/dL Crossmatch See Detail 03/25/18 03/25/18 Range/Units 07:07 11:38 WBC (3.8-10.6) k/uL RBC (3.80-5.40) m/uL Hgb (11.4-16.0) gm/dL Hct (34.0-46.0) % MCH (25.0-35.0) pg MCHC (31.0-37.0) g/dL RDW (11.5-15.5) % Neutrophils # (1.3-7.7) k/uL Lymphocytes # (1.0-4.8) k/uL ABG pCO2 (35-45) mmHg ABG HCO3 (21-25) mmol/L ABG O2 Saturation (94-97) % Sodium (137-145) mmol/L Chloride (98-107) mmol/L Carbon Dioxide (22-30) mmol/L BUN (7-17) mg/dL Glucose (74-99) mg/dL POC Glucose (mg/dL) 227 H 181 H (75-99) mg/dL Calcium (8.4-10.2) mg/dL Crossmatch Microbiology - Last 24 Hours (Table) 03/21/18 11:15 Anaerobic Culture - Preliminary Abdomen Anaerobic Gm Negative Bacilli Anaerobic Gram Positive Cocci Anaerobic Gm Negative Bacilli#3 03/21/18 11:15 Anaerobic Culture - Preliminary Abdomen Anaerobic Gm Negative Bacilli Anaerobic Gm Positive Bacill Anaerobic Gm Negative Bacilli#2 Assessment and Plan Assessment: Impression Present on admission abdominal pain nausea vomiting suspect due to a partial bowel obstruction Prior history of colon cancer with prior bowel resection Urinary tract infection present on admission Underlying history of atrial fibrillation on anticoagulation A prior history of a DVT with PE with filter placed Status post March 21 exploratory laparotomy, sigmoid colectomy with end colostomy, partial omentectomy, repair of incisional hernia, left salpingectomy , washout of peritoneal cavity with QI drains placed over the rectal stump Hypokalemia Elevated troponin likely related to acute kidney injury Severe protein calorie malnutrition Plan Family decision comfort care measures Advance directives indicating no CODE STATUS Continue management per the telephone lines repairer Vent support per pulmonary Continue postop surgical care TPN for nutritional support IV antibiotics as ordered DVT and GI prophylaxis Will follow with you The above impression and plan of care have been discussed and directed by signing physician. Gayathri Onofre nurse practitioner acting as scribe for signing physician.
[2018-03-25] MEDS ORDERED: ATROPINE OPHTH SOLN 1% 5ML BTL SUBLINGUAL PRN (15:33)
[2018-03-25] MEDS ORDERED: MORPHINE SULFATE (100 MG/2 ML) 100 MG in SODIUM CHLORIDE 0.9% 100 ML IV SCH (15:45)
[2018-03-25] MEDS ORDERED: SODIUM CHLORIDE 0.9% 1,000 ML IV SCH (15:45)
[2018-03-25] MEDS ORDERED: SCOPOLAMINE 1.5MG/72HR PATCH TRANSDERM SCH (15:45)
[2018-03-25 16:17] VITALS: TEMP 99.5
[2018-03-25 17:18] VITALS: BP 103/54; PULSE 123; RESP 26
--- NOTE | 2018-03-26 13:40 | CDI ---
Last Revision, May 2017 Documentation Clarification Form Date: 03/26/18 From: [place] Derek Bri Turner, Rn Concurrent Review Hours-8:30 am & 5 pm Ricco Admit Date: 03/20/2018 1:21:00 PM Patient Name: Camelia Olvera Visit Number: [id number] Discharge Date: 03/25/18 ATTENTION: The Clinical Documentation Specialists (CDI) and [facility] Coding Staff appreciate your assistance in clarifying documentation. Please respond to the clarification below the line at the bottom and electronically sign. The CDI & [facility] Coding staff will review the response and follow-up if needed. Please note: Queries are made part of the Legal Health Record. If you have any questions, please contact the author of this message via ITS. Rachel Wilburn MD Atrial fibrillation is documented in the 03/23, 03/24 & 03/25 PNs. History/Risk Factors: sepsis w septic shock, colon ca, ruptured viscus, severe PCM, EKG/telemetry: Sinus tachycardia w PSC, bifascicular block Treatment: anticoagulant and filter In your professional opinion, can you please clarify the type of atrial fibrillation, if known? Chronic/Permanent Paroxysmal Persistent Other, please specify Unable to determine Please continue to document in your progress notes and discharge summary in order to capture severity of illness and risk of mortality. Include clinical findings that support your diagnosis. Patient never documented in atrial fibrillation EKG showing sinus tachycardia. MAGNOLIA
--- NOTE | 2018-03-27 09:41 | CDI ---
Last Revision, May 2017 Documentation Clarification Form 2nd Request Date: 03/25/2018 8:51:00 AM From: Katrin Parks RN, CCDS Admit Date: 03/20/2018 1:21:00 PM Patient Name: Camelia Olvera Visit Number: [id number] ATTENTION: The Clinical Documentation Specialists (CDI) and [facility] Coding Staff appreciate your assistance in clarifying documentation. Please respond to the clarification below the line at the bottom and electronically sign. The CDI & [facility] Coding staff will review the response and follow-up if needed. Please note: Queries are made part of the Legal Health Record. If you have any questions, please contact the author of this message via ITS. Dr. Fontana The patient is now >48hrs post-op and still maintained on the ventilator History/Risk Factors: Sepsis with septic shock this admission, Blood/Urine/Wound Cx + for pseudomonas and coli, age, RA Tobacco use: current smoker Clinical Indicators: 03/25 Pulmonary Progress Note: " Post-op vent management, P-op day 4 s/p exploratory lap with sigmoid colectomy and end colostomy, repair of incisional hernia and left salpingectomy and wash out of peritoneal cavity." Admission Vital signs: 98.7, hr 112, RR 16, B/P 146/67, spo2 92% ra Current Pulse oximetry: 97% 40% FIO2 MV 03/25 Pulmonary Lung/Breathing assessment: "Lungs reveal bilateral rhonchi and crackles. No wheezes. Breath sounds diminished throughout. Breath sounds are equal bilaterally." 03/25 ABG/CBG: pH 7.41 pCO2 31 pO2 104 pHCO3 20 Lactate -5.1 Treatment: Breathing TX: Duoneb INH Q 4 Continuous Pulse ox per ICU protocol Vent: pt has been maintained on the vent since OR since 03/21 O2 weaned down from 100% to 40% In your professional opinion, can you please clarify if these findings signify one of the following conditions? Acuity: Acute Chronic Acute on Chronic Specificity: Respiratory Failure, further specify and identify underlying causes (if known): With hypercapnia? With hypoxia? Other Diagnosis, please specify Unable to determine Please continue to document in your progress notes and discharge summary in order to capture severity of illness and risk of mortality. Include clinical findings that support your diagnosis. MTDD
--- NOTE | 2018-03-27 10:19 | P.DS ---
Providers Date of admission: 03/20/18 13:21 Expected date of discharge: 03/27/18 Attending physician: Rachel Fierro Consults: 03/20/18 14:42 Consult Physician Routine Consulting Provider: Wilmer Nicole Consult Reason/Comments: pneumonia, UTI Do you want consulting provider notified?: Yes 03/20/18 20:27 Consult Physician Stat Consulting Provider: Aman Hernandez Consult Reason/Comments: critical CT abd results Do you want consulting provider notified?: Already Contacted 03/20/18 21:42 Consult Physician Routine Consulting Provider: Rad Moore Consult Reason/Comments: ICU management Do you want consulting provider notified?: Yes Primary care physician: Marie Solares Hospital Course: Discharge summary Patient being discharged to [facility] 1. Altered mental status changes likely due to metabolic encephalopathy related to infectious processes from pneumonia and UTI and acute kidney injury. Computed tomography scan shows no acute changes 2. Possible pneumonia noted on chest x-ray. Patient currently on antibiotics Zosyn, Flagyl and Diflucan 3. UTI: Continue antibiotics. Urine culture showing E. coli and Pseudomonas aeruginosa 4. Acute kidney injury: Likely secondary to dehydration from diuretics and diarrhea. Also a Hold hydrochlorothiazide. Continue with IV fluids. She received a bolus in the ER. Continue normal saline at 75 mL an hour. 5. Diarrhea now resolved. Her family patient having multiple loose stools daily for the last 3 weeks. Last bowel movement 2 days 6. Hypokalemia: Patient received potassium supplement 7. Anemia: Check iron studies. Check stool for occult blood. Patient reports no acute 8. Elevated troponin likely related to her acute kidney injury. Continue to monitor cardiac enzymes. Patient reports no chest pain. EKG showing sinus tachycardia with a heart rate of 104 with PVCs 9. Severe protein calorie malnutrition: Albumin 2.1. Add ensure 3 times a day with meals 10. History of rheumatoid arthritis 11. History of COPD. Stable 12. Hypothyroidism continue Synthroid. TSH 0.759 13. Sinus tachycardia likely related to dehydration. Continue IV fluids. 14. Sepsis with tachycardia and leukocytosis. Continue antibiotics and IV fluids. Lactic acid level normal. blood culture growing pseudomonas aeruginosa , abdominal culture growing Pseudomonas aeurginosa, E. coli and Bennie albicans and sputum growing bennie albicans. Infectious disease following. Patient currently on Diflucan, Flagyl and Zosyn 15. Complex mass in the pelvis related to the sigmoid colon patient underwent surgery with Dr. Hernandez with partial colectomy and colostomy placement patient currently postop day 4. Patient remains on mechanical ventilation. Critical care following closely. 16. Hypotension secondary to septic shock. Patient remains on Levoohed for pressure support. Dr. Moore following for critical care. Patient has been off levophed for the past few hours 17. Expected blood loss anemia secondary to surgery. Hgb 7.2. Continue to monitor closely 18. Acute respiratory failure secondary to sepsis Family has made the decision to proceed with hospice care. Patient will be extubated and placed on [facility] This is a 87-year-old female, patient of Dr. Solares. She has a known past medical history of hypothyroidism, hyperlipidemia, rheumatoid arthritis and COPD. Patient is still smoking she is working on quitting she's down to 3 cigarettes a day. Patient presents to the emergency room via EMS due to altered mental status changes. Family is now at bedside. Melauunf-ri-tcg reports that her [id number]-[id number] has been more confused over the last couple a days. Prior to that she was having diarrhea for the past 3 weeks. They treated this at home with yogurt. Patient had been 2 days without a stool. Patient does report cough that is productive. She was found have evidence of pneumonia and UTI. Has been started on Rocephin and azithromycin in the ER. Also evidence of acute kidney injury creatinine elevated at 1.97. Diuretics have been placed on hold she's getting IV fluids. White count elevated at 19 hemoglobin down at 9.8 platelets 528 potassium 2.7 troponin elevated 0.055 possibly related to her acute kidney injury. Chest x-ray showing pulmonary venous Congestion and basilar atelectasis or infiltrate. Computed tomography scan of the brain showed no acute changes. EKG had shown sinus tachycardia with a heart rate of 104 with PVCs right bundle branch block and left anterior fascicular block. EMS had reported patient to be tachycardic and hypotensive. Blood pressures are now stable. Again note that the hydrochlorothiazide has been placed on hold. Discontinued the azithromycin due to its interaction with the Risperdal which she takes in the evening. At this time we'll continue with Rocephin. Patient denies any chest pain or shortness of breath. Denies any nausea or vomiting. Bowel movements have improved. Denies any burning with urination or frequency or urgency. Patient does live with [id number]-[id number] at home. Baseline mentation is usually alert and orientated to name and place. On 03/21/2018 patient was seen and examined in the intensive care unit she is intubated sedated maintained on mechanical ventilation she is maintained on IV pressors she just returned from operating room she underwent exploratory laparotomy with sigmoid colectomy with end colostomy. On 03/22/2018 patient seen and examined in intensive care unit she remains intubated sedated and maintained on mechanical ventilation her urine output is marginal, white blood count is 22.6 hemoglobin 8.2 03/23/2018 patient remains in the intensive care unit requiring intubation and sedation. Patient is currently postop day 2 exploratory lap with sigmoid colectomy. Hemoglobin is 7.5. White blood cell trending down to 19.2. On 03/24/2018 patient remains on mechanical ventilation and in the intensive care unit. Patient is currently postop day 3 from exploratory lap with sigmoid colectomy. Per nursing staff patient has been off sedation and following some commands. CPAP trial will be initiated. WBC 17.3. On 03/25/2018 patient remains on mechanical ventilation in the intensive care unit. Patient is postop day 4 from exploratory lap with sigmoid colectomy. Awaiting family decision on further treatment for his comfort care. [facility]. Family made the decision to proceed with extubation and hospice care I performed an examination of the patient and discussed their management with the Nurse Practitioner. I have reviewed the Nurse Practitioner's notes and agree with the documented findings and plan of care Patient Condition at Discharge: Stable Plan - Discharge Summary Discharge Rx Participant: No New Discharge Prescriptions: No Action Atropine Ophth Soln 1% 5Ml [Isopto Atropine 1% 5Ml] 2 - 4 drops SUBLINGUAL Q4HR PRN #1 bottle PRN Reason: Excess Secretions LORazepam [Ativan] 1 mg PO Q4HR PRN 3 Days #15 tab PRN Reason: agitation MORPHINE ORAL KATYA CONC 20mg/mL [Roxanol Oral Soln Conc 20MG/ML] 10 - 30 mg PO Q4H PRN 3 Days #30 ml PRN Reason: Pain Control Albuterol Nebulized [Ventolin Nebulized] 2.5 mg INHALATION RT-Q6H PRN PRN Reason: Shortness Of Breath Niacin 500 mg PO DAILY Levothyroxine Sodium [Synthroid] 25 mcg PO DAILY Hydrochlorothiazide [Hydrodiuril] 12.5 mg PO DAILY Aspirin 325 mg PO DAILY risperiDONE [RisperDAL] 0.25 mg PO HS Multivitamins, Thera [Multivitamin (formulary)] 1 tab PO DAILY Discharge Medication List Albuterol Nebulized [Ventolin Nebulized] 2.5 mg INHALATION RT-Q6H PRN 03/26/18 [ History] Aspirin 325 mg PO DAILY 03/26/18 [History] Atropine Ophth Soln 1% 5Ml [Isopto Atropine 1% 5Ml] 2 - 4 drops SUBLINGUAL Q4HR PRN #1 bottle 03/26/18 [Rx] Hydrochlorothiazide [Hydrodiuril] 12.5 mg PO DAILY 03/26/18 [History] LORazepam [Ativan] 1 mg PO Q4HR PRN 3 Days #15 tab 03/26/18 [Rx] Levothyroxine Sodium [Synthroid] 25 mcg PO DAILY 03/26/18 [History] MORPHINE ORAL KATYA CONC 20mg/mL [Roxanol Oral Soln Conc 20MG/ML] 10 - 30 mg PO Q4H PRN 3 Days #30 ml 03/26/18 [Rx] Multivitamins, Thera [Multivitamin (formulary)] 1 tab PO DAILY 03/26/18 [History ] Niacin 500 mg PO DAILY 03/26/18 [History] risperiDONE [RisperDAL] 0.25 mg PO HS 03/26/18 [History] Follow up Appointment(s)/Referral(s): Marie Solares MD [Primary Care Provider] - 1-2 days Discharge Disposition: [facility] TO [facility]
== END 2018-03-25 17:51 | disposition hospice, inpatient (51) | DRG 853 ==
LOC: EC 10:11 → 6SEL 13:21 → 6ICU 22:47
PROVIDERS: ADMIT Internal Medicine; ATTEND Internal Medicine
PROC: 0WQF0ZZ Repair Abdominal Wall, Open Approach (ICD-10-PCS; 2018-03-21)
PROC: 0DBU0ZZ Excision of Omentum, Open Approach (ICD-10-PCS; 2018-03-21)
PROC: 5A1955Z Respiratory Ventilation, Greater than 96 Consecutive Hours (ICD-10-PCS; 2018-03-21)
PROC: 0DTN0ZZ Resection of Sigmoid Colon, Open Approach (ICD-10-PCS; principal; 2018-03-21 09:00)
PROC: 0D1N0Z4 Bypass Sigmoid Colon to Cutaneous, Open Approach (ICD-10-PCS; 2018-03-21 09:00)
PROC: 0UT60ZZ Resection of Left Fallopian Tube, Open Approach (ICD-10-PCS; 2018-03-21 09:00)
PROC: 3E0336Z Introduction of Nutritional Substance into Peripheral Vein, Percutaneous Approach (ICD-10-PCS; 2018-03-23)
DX: A41.9 Sepsis, unspecified organism (principal); E43 Unspecified severe protein-calorie malnutrition; K63.1 Perforation of intestine (nontraumatic); K65.1 Peritoneal abscess; R65.21 Severe sepsis with septic shock; J15.9 Unspecified bacterial pneumonia; J96.01 Acute respiratory failure with hypoxia; G93.49 Other encephalopathy; N39.0 Urinary tract infection, site not specified; N17.9 Acute kidney failure, unspecified; K43.0 Incisional hernia with obstruction, without gangrene; I45.2 Bifascicular block; J98.11 Atelectasis; E87.2 Acidosis; B37.0 Candidal stomatitis; C18.9 Malignant neoplasm of colon, unspecified; J44.0 Chronic obstructive pulmonary disease with (acute) lower respiratory infection; J90 Pleural effusion, not elsewhere classified; Z66 Do not resuscitate; Z51.5 Encounter for palliative care; K66.8 Other specified disorders of peritoneum; E86.0 Dehydration; F03.90 Unspecified dementia, unspecified severity, without behavioral disturbance, psychotic disturbance, mood disturbance, and anxiety; M06.9 Rheumatoid arthritis, unspecified; D50.0 Iron deficiency anemia secondary to blood loss (chronic); K43.2 Incisional hernia without obstruction or gangrene; E87.6 Hypokalemia; E03.9 Hypothyroidism, unspecified; E78.5 Hyperlipidemia, unspecified; B96.20 Unspecified Escherichia coli [E. coli] as the cause of diseases classified elsewhere; B96.5 Pseudomonas (aeruginosa) (mallei) (pseudomallei) as the cause of diseases classified elsewhere; K59.00 Constipation, unspecified; T50.2X5A Adverse effect of carbonic-anhydrase inhibitors, benzothiadiazides and other diuretics, initial encounter; R77.9 Abnormality of plasma protein, unspecified; I10 Essential (primary) hypertension; Z68.29 Body mass index [BMI] 29.0-29.9, adult; F17.210 Nicotine dependence, cigarettes, uncomplicated; Z79.01 Long term (current) use of anticoagulants; Z79.890 Hormone replacement therapy; Z79.899 Other long term (current) drug therapy; Z86.010 Personal history of colon polyps; Z86.718 Personal history of other venous thrombosis and embolism; Z86.711 Personal history of pulmonary embolism; Z95.828 Presence of other vascular implants and grafts; Z98.42 Cataract extraction status, left eye; Z98.41 Cataract extraction status, right eye; Z80.8 Family history of malignant neoplasm of other organs or systems; Z81.2 Family history of tobacco abuse and dependence; E87.70 Fluid overload, unspecified
CPT/HCPCS: 36415; 36600; 70450; 71045; 71046; 74176; 80048; 80053; 80202; 81001; 82040; 82272; 82330; 82550; 82553; 82728; 82805; 83036; 83540; 83550; 83605; 83735; 83880; 84100; 84132; 84443; 84478; 84484; 85025; 85027; 85610; 85730; 86850; 86900; 86901; 86920; 87040; 87070; 87075; 87077; 87086; 87186; 87205; 87324; 88305; 88309; 94002; 94003; 94640; 96361; 96365; 96366; 96367; 99291

== ENCOUNTER 2018-03-25 17:22 | Inpatient (IN) | payer MEDICAID ==
[2018-03-25] MEDS ORDERED: ACETAMINOPHEN SUPPOSITORY 650 MG SUPP RECTAL PRN (17:26)
[2018-03-25] MEDS ORDERED: ONDANSETRON 4 MG/2 ML VIAL IVP PRN (17:26)
[2018-03-25] MEDS ORDERED: ATROPINE OPHTH SOLN 1% 5ML BTL SUBLINGUAL PRN (17:26)
[2018-03-25] MEDS ORDERED: LORazepam 2 MG/ML INJ IV PRN (17:26)
[2018-03-25] MEDS ORDERED: SCOPOLAMINE 1.5MG/72HR PATCH TRANSDERM SCH (17:30)
[2018-03-25] MEDS ORDERED: MORPHINE SULFATE (100 MG/2 ML) 100 MG in SODIUM CHLORIDE 0.9% 100 ML IV SCH (17:30)
[2018-03-25] MEDS ORDERED: BISACODYL 10 MG SUPP RECTAL PRN (17:35)
[2018-03-26 07:39] VITALS: BP 97/61; PULSE 115; RESP 15; TEMP 99.1
--- NOTE | 2018-03-26 10:07 | P.DS ---
Providers Date of admission: 03/25/18 17:52 Expected date of discharge: 03/26/18 Attending physician: Rachel Fierro Primary care physician: Rachel Fierro [facility] Course: Discharge diagnosis Patient will be going home with [facility]. 1. History of colon cancer with prior bowel resection 2. Status post exploratory lap with sigmoid colectomy and end colostomy, partial laminectomy with repair of incisional hernia, left salpingostomy, washout of peritoneal cavity with QI drains placed rectal stump 3. Acute kidney injury. 4. Urinary tract infection 5. Dementia Hospital course Patient has a known past medical history of colon cancer with prior bowel resection. Patient presented to the hospital with abdominal pain nausea and vomiting due to partial bowel obstruction. on 03/21 patient went for exploratory lap with sigmoid colectomy and end colostomy, partial laminectomy, repair of incisional hernia, left salpingostomy, washout of peritoneal cavity with QI drains placed over the rectal stump. Patient was on mechanical ventilation post surgery. Family made the decision to take patient off mechanical ventilation per patient wishes and to take patient home with hospice. Patient will be going home under the care of her geywlepq-we-lav to [facility]. Yflgyiyj-ew-fec made aware that patient could pass in route to home. Fsqbamxi-uz-iwg would like to proceed with taking patient home under hospice. I performed an examination of the patient and discussed their management with the Nurse Practitioner. I have reviewed the Nurse Practitioner's notes and agree with the documented findings and plan of care Plan - Discharge Summary New Discharge Prescriptions: New RX: Atropine Ophth Soln 1% 5Ml [Isopto Atropine 1% 5Ml] 2 - 4 drops SUBLINGUAL Q4HR PRN #1 bottle PRN Reason: Excess Secretions LORazepam [Ativan] 1 mg PO Q4HR PRN 3 Days #15 tab PRN Reason: agitation MORPHINE ORAL KATYA CONC 20mg/mL [Roxanol Oral Soln Conc 20MG/ML] 10 - 30 mg PO Q4H PRN 3 Days #30 ml PRN Reason: Pain Control Discontinued RX: risperiDONE [RisperDAL] 0.5 mg PO HS RX: Primidone [Mysoline] 25 mg PO DAILY PRN PRN Reason: SLEEP RX: Levothyroxine Sodium [Synthroid] 25 mcg PO DAILY Niacin [Niacin ER] 1,000 mg PO DAILY Hydrochlorothiazide [Hydrodiuril] 12.5 mg PO DAILY Pedi Multivit No.19/Folic Acid [Children's Multi-Vit Gummies] 200 mcg PO DAILY Discharge Medication List LORazepam [Ativan] 1 mg PO Q4HR PRN 3 Days #15 tab 03/26/18 [Rx] MORPHINE ORAL KATYA CONC 20mg/mL [Roxanol Oral Soln Conc 20MG/ML] 10 - 30 mg PO Q4H PRN 3 Days #30 ml 03/26/18 [Rx] RX: Atropine Ophth Soln 1% 5Ml [Isopto Atropine 1% 5Ml] 2 - 4 drops SUBLINGUAL Q4HR PRN #1 bottle 03/26/18 [Rx] Activity/Diet/Wound Care/Special Instructions: Patient is going home with [facility]. Discharge Disposition: HOME WITH HOSPICE
--- NOTE | 2018-03-26 16:03 | P.HPIM ---
History of Present Illness H&P Date: 03/26/18 This is a 87-year-old female patient presented to the emergency room due to altered mental status changes. Per family patient has been confused for the past couple days. patient was found to have evidence of pneumonia and UTI at that time. Patient also had evidence of acute kidney injury. It was further found that patient had a complex mass in the pelvis related to a sigmoid colon. Patient has known past medical history of colon cancer with prior bowel resection. On 03/21 patient went for exploratory lap with sigmoid colectomy and end colostomy, partial laminectomy and repair of incisional hernia,left salpingostomy, washout of peritoneal cavity with QI drains placed. Patient required mechanical ventilation and pressure support medications post surgery. Patient remained on mechanical ventilation for multiple days. Family made the decision to take patient off mechanical ventilation per patient wishes and to take patient home with hospice. Patient discharged home with [facility] hospice. Patient will be going home with [id number] and hospice care. 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", "has a form of ra", "drinks coffee all day long.(6-7 pots made per day) History of Any Multi-Drug Resistant Organisms: None Reported Past Surgical History: Hernia Repair Additional Past Surgical History / Comment(s): favian cataracts, colonoscopy, polypectomy, umb hernia, rt ankle sx Past Anesthesia/Blood Transfusion Reactions: Motion Sickness Smoking Status: Current every day smoker - Past Family History Mother Family Medical History: No Reported History Additional Family Medical History / Comment(s): of old age Father Family Medical History: Cancer Additional Family Medical History / Comment(s): smoker- from throat cancer Medications and Allergies Home Medications Medication Instructions Recorded Confirmed Type Albuterol Nebulized [Ventolin 2.5 mg INHALATION RT-Q6H PRN 03/26/18 03/26/18 History Nebulized] Aspirin 325 mg PO DAILY 03/26/18 03/26/18 History Atropine Ophth Soln 1% 5Ml [Isopto 2 - 4 drops SUBLINGUAL Q4HR PRN #1 03/26/18 Rx Atropine 1% 5Ml] bottle Hydrochlorothiazide [Hydrodiuril] 12.5 mg PO DAILY 03/26/18 03/26/18 History LORazepam [Ativan] 1 mg PO Q4HR PRN 3 Days #15 tab 03/26/18 Rx Levothyroxine Sodium [Synthroid] 25 mcg PO DAILY 03/26/18 03/26/18 History MORPHINE ORAL KATYA CONC 20mg/mL 10 - 30 mg PO Q4H PRN 3 Days #30 ml 03/26/18 Rx [Roxanol Oral Soln Conc 20MG/ML] Multivitamins, Thera [Multivitamin 1 tab PO DAILY 03/26/18 03/26/18 History (formulary)] Niacin 500 mg PO DAILY 03/26/18 03/26/18 History risperiDONE [RisperDAL] 0.25 mg PO HS 03/26/18 03/26/18 History Allergies Allergy/AdvReac Type Severity Reaction Status Date / Time No Known Allergies Allergy Verified 03/20/18 11:32 Physical Exam Vitals: Vital Signs Temp Pulse Pulse Pulse Resp BP BP 03/26/18 07:00 99.1 F 115 H 15 97/61 03/26/18 00:00 118 H 19 106/49 03/25/18 23:00 99.0 F 118 H 20 03/25/18 20:00 125 H 24 105/53 03/25/18 18:00 99.5 F 124 H 28 H 111/53 03/25/18 17:55 123 H 28 H 111/53 BP Pulse Ox 03/26/18 07:00 97 03/26/18 00:00 97 03/25/18 23:00 98/45 96 03/25/18 20:00 96 03/25/18 18:00 97 03/25/18 17:55 97 Intake and Output 03/26/18 03/26/18 03/26/18 06:59 14:59 22:59 Intake Total 8 Output Total 290 Balance -282 Intake: Intake, IV Titration 8 Amount Morphine Sulfate (100 mg/ 8 2 ml) 100 mg In Sodium Chloride 0.9% 100 ml @ 1 MG/HR 1.02 mls/hr IV . Q24H [facility] Rx#:[id number] Output: Drainage 40 Lower Abdomen 40 Urine 250 Other: Voiding Method Indwelling Catheter Indwelling Catheter Head normocephalic Neck supple Lungs diminished breathing Heart regular rate and rhythm S1-S2, no rub or gallop Abdomen is soft nontender nondistended positive bowel sounds no hepatosplenomegaly Extremities no edema Assessment and Plan Assessment: 1. Sepsis with positive blood cultures 2. Altered mental status changes likely due to metabolic and left the related to pneumonia and UTI. 3. Status post partial colectomy and colostomy with Dr. Hernandez. 4. Dementia 5. History of colon cancer with prior bowel resection Patient currently admitted to [facility]. Planning for discharge home with [id number] I performed an examination of the patient and discussed their management with the Nurse Practitioner. I have reviewed the Nurse Practitioner's notes and agree with the documented findings and plan of care Time with Patient: Greater than 30 (Greater than 60% of the total time spent in counseling and coordination of care)
[2018-03-28] MEDS ORDERED: SCOPOLAMINE 1.5MG/72HR PATCH TRANSDERM SCH (09:00)
== END 2018-03-26 12:45 | disposition hospice, home (50) | DRG 951 ==
LOC: 6ICU 17:52 → 4MS4W 03-26 04:13
PROVIDERS: ADMIT Internal Medicine; ATTEND Internal Medicine
DX: Z51.5 Encounter for palliative care (principal); A41.9 Sepsis, unspecified organism; J18.9 Pneumonia, unspecified organism; C18.7 Malignant neoplasm of sigmoid colon; N39.0 Urinary tract infection, site not specified; N17.9 Acute kidney failure, unspecified; Z66 Do not resuscitate; F03.90 Unspecified dementia, unspecified severity, without behavioral disturbance, psychotic disturbance, mood disturbance, and anxiety; M06.9 Rheumatoid arthritis, unspecified; E07.9 Disorder of thyroid, unspecified; I10 Essential (primary) hypertension; Q63.0 Accessory kidney; F17.200 Nicotine dependence, unspecified, uncomplicated; Z79.82 Long term (current) use of aspirin; Z79.890 Hormone replacement therapy; Z79.899 Other long term (current) drug therapy; Z90.49 Acquired absence of other specified parts of digestive tract; Z93.3 Colostomy status; Z98.42 Cataract extraction status, left eye; Z98.41 Cataract extraction status, right eye; Z80.8 Family history of malignant neoplasm of other organs or systems; Z81.2 Family history of tobacco abuse and dependence